=== PATIENT | female | born 1960 | race Caucasian/White ===

== ENCOUNTER 2019-11-13 09:00 | Outpatient (CLI) | payer BC, SELFPAY ==
--- NOTE | ~2019-11-13 | CT_ITS ---
EXAMINATION: CT chest abdomen pelvis w con DATE: 11/13/2019 21:08 CDT INDICATION: Carcinosarcoma of the uterus. TECHNIQUE: Computed tomography (CT) of the chest, abdomen, and pelvis was performed with 100 cc Omnip aque 350 intravenous contrast. The dose-length product was 416.34 mGy-cm. Automated exposure control and iterative reconstruction technique were employed. COMPARISON: Pet/CT dated 02/26/[address] dated 02/26/2019 FINDINGS: CHEST CT: Status post right axillary lymph node dissection. No axillary, mediastinal or hilar lymphadenopathy. Heart size is normal. No significant pleural or pericardial effusion. Stable 4 mm fissural nodule, im age 58. Stable 6 mm right lower lobe nodule, image 89. No endobronchial lesions. Stable calcified lef t thyroid mass without significant change. There are surgical changes of right mastectomy. No new pul monary nodules or masses. ABDOMEN/PELVIS CT: Status post cholecystectomy with pneumobilia. The liver, spleen, pancreas, adrenal glands and kidneys are unremarkable. Normal appendix. Nonobstructive bowel gas pattern. Status post hysterectomy. Small periumbilical fat-containing hernia. No osteolytic or osteoblastic lesions. Central venous catheter near the cavoatrial junction. IMPRESSION: 1. No evidence for metastatic disease. No significant change from most recent pet/CT. Reviewed, dictated and finalized at location A. IMPRESSION: 1. No evidence for metastatic disease. No significant change from most recent p et/CT.
== END 2019-11-13 09:01 | disposition home or self-care (01) ==
PROVIDERS: PCP Family Medicine Adolescent Medicine; Visit Provider Internal Medicine Medical Oncology
DX: C54.9 Malignant neoplasm of corpus uteri, unspecified (principal); T45.1X5A Adverse effect of antineoplastic and immunosuppressive drugs, initial encounter
CPT/HCPCS: 71260; 74177; Q9967

== ENCOUNTER 2022-10-30 07:43 | Outpatient (CLI) | payer OTHER, SELFPAY ==
--- NOTE | ~2022-10-30 | CT_ITS ---
CT of the Abdomen and Pelvis: Indication: Microscopic hematuria Technique: 2.5 mm axial scans were obtained through the abdomen and pelvis prior to and following in travenous administration of 130 cc of Omnipaque 350. Dose reduction technique was used on this scan b y utilizing automated exposure control and iterative reconstruction technique. The dose-length produc t (DLP) was 454.57 mGy-cm. COMPARISON: 11/13/2019 Findings: Scans through the lung bases are unremarkable. The liver, spleen, pancreas, adrenals and right kidney are within normal limits. There is mild left h ydronephrosis and dilatation of the left ureter. No evidence for delayed nephrogram on postcontrast i mages. Minimal pneumobilia present. Probable calcified phlebolith in the left pelvis rather than dist al left ureteral stone. Cholecystectomy clips are present. No evidence of aortic aneurysm. No lympha denopathy. Suspected focal wall thickening at the splenic flexure of the colon. No bowel obstruction. No abscess or free air. Images through the pelvis were performed. Questionable wall thickening of the bladder base, slightly eccentric to the left side. Patient is post hysterectomy. No adnexal mass evident. No ascites. Impression: Mild left hydroureteronephrosis. This is of uncertain etiology. There is questionable mild wall thick ening of the bladder base, and bladder carcinoma or posttreatment change given history of carcinosarc ben of the uterus could be considered. Consider cystoscopy as indicated. Nuclear medicine renal scan could also be considered to evaluate for obstructive uropathy. Wall thickening at the splenic flexure of the colon. Focal infectious/inflammatory colitis suspected . Early neoplasm not completely excluded. Reviewed, dictated and finalized at [facility]. Impression: Mild left hydroureteronephrosis. This is of uncertain etiology. There is questi onable mild wall thickening of the bladder base, and bladder carcinoma or postt reatment change given history of carcinosarcoma of the uterus could be consider ed. Consider cystoscopy as indicated. Nuclear medicine renal scan could also be considered to evaluate for obstructive uropathy. Wall thickening at the splenic flexure of the colon. Focal infectious/inflamma tory colitis suspected. Early neoplasm not completely excluded.
--- NOTE | ~2022-10-30 | XR_ITS ---
Supine and upright views of the abdomen Clinical history: Microscopic hematuria COMPARISON: 06/17/2009 Findings: Bowel gas pattern is nonspecific. No evidence for obstruction or free air. No abnormal mass lesion or calcification is seen. Cholecystectomy clips noted. Osseous structures are intact. Impression: No significant abnormality is seen. Reviewed, dictated and finalized at [facility]. Impression: No significant abnormality is seen.
[2022-10-30 08:22] LABS: Estimated Glomerular Filt Rate > 60
== END 2022-10-30 07:44 | disposition home or self-care (01) ==
PROVIDERS: PCP Family Medicine Adolescent Medicine; Visit Provider Nurse Practitioner Family
DX: R31.29 Other microscopic hematuria (principal); N13.30 Unspecified hydronephrosis; N32.9 Bladder disorder, unspecified; R93.3 Abnormal findings on diagnostic imaging of other parts of digestive tract
CPT/HCPCS: 74018; 74178; Q9967

== ENCOUNTER 2023-02-01 07:32 | Outpatient (CLI) | payer OTHER, SELFPAY ==
--- NOTE | 2023-02-01 01:00 | ECHO_ITS ---
Patient Info Name: Maryam Walsh Age: 62 years : 1960 Gender: Female Ht: 61 in Wt: 129 lbs BSA: 1.60 m2 HR: 79 bpm BP: 138 / 93 mmHg Heart Rhythm: Sinus Rhythm Technical Quality: Good Exam Date: 02/01/2023 7:59 AM Exam Location: [facility] Patient Status: Outpatient Admit Date: 02/01/2023 Staff Ordering Physician: ClaytonReymundo DO Bi Architect: Claudia Patel RDCS Attending Provider: NormanReymundo DO Exam Type: CA echo doppler color flow Study Info Indications - estrogen receptor positive Complete two-dimensional, color flow and Doppler transthoracic echocardiogram is performed. Summary 1. Complete two-dimensional, color flow and Doppler transthoracic echocardiogram is performed. 2. Left ventricular chamber dimension is normal. 3. Left ventricular systolic function is normal, estimated at 55-60%. 4. Global longitudinal strain is normal at 21 %. 5. There is trace mitral valve regurgitation. 6. There is trace tricuspid valve regurgitation. Left Ventricle Left ventricular chamber dimension is normal. Left ventricular systolic function is normal, estimated at 55-60%. The left ventricular diastolic function is normal. Global longitudinal strain is normal at 21 %. Right Ventricle Right ventricular chamber dimension is normal. Left Atria Left atrial chamber dimension is normal. Right Atria Right atrial chamber dimension is normal. Aortic Valve The aortic valve is normal. Pulmonic Valve The pulmonic valve is normal. Mitral Valve The mitral valve has normal leaflets. There is trace mitral valve regurgitation. Tricuspid Valve The tricuspid valve leaflets are normal. There is trace tricuspid valve regurgitation. Pericardium/Pleural The pericardium appears normal. Aorta The aortic root size at the sinus of Valsalva is normal. Left Ventricular Outflow Tract Name Value Normal LVOT 2D LVOT Diameter 2.0 cm LVOT Doppler LVOT Peak Gradient 5 mmHg LVOT Mean Gradient 2 mmHg LVOT VTI 23 cm LVOT VTI/AV VTI Ratio 0.9 LVOT Stroke Volume 71 ml LVOT CO 13.0 l/min LVOT CI 8.2 l/min/m2 Pulmonic Valve Name Value Normal RVOT Doppler RVOT Peak Gradient 3 mmHg PV Doppler PV Peak Gradient 6 mmHg Mitral Valve Name Value Normal MV Doppler MV Decel [place] 945 cm/s2 MV PHT 30 ms MV Are
== END 2023-02-01 07:33 | disposition home or self-care (01) ==
PROVIDERS: PCP Family Medicine Adolescent Medicine; Visit Provider Internal Medicine Medical Oncology
DX: C50.811 Malignant neoplasm of overlapping sites of right female breast (principal); Z17.0 Estrogen receptor positive status [ER+]
CPT/HCPCS: 93306

== ENCOUNTER 2023-02-15 11:52 | Observation (INO) | payer OTHER, BC, SELFPAY ==
[2023-02-06 11:49] VITALS: BMI 24.5
--- NOTE | 2023-02-06 11:56 | PC.NURSE ---
Report to the Outpatient Waiting Room, entrance under the green pavilion located off [facility], at time 0800 on date 02/14/23. Planned Procedure Time: 1000. Time changes happen often and if your time is changed the preop area will call you the afternoon before. - You and your visitor will be asked to self-screen and do not enter if you have any COVID symptoms. - A mask is optional within the hospital at this time. Patients may have clear liquids (water, carbonated beverages, clear teas, apple juice) until 3 hours prior to surgery with a maximum of 20 ounces. - No food from midnight until time of surgery Take the following medications with a SIP of water the morning of surgery: VENLAFAXINE, TYLENOL IF NEEDED DO NOT STOP ANY OF YOUR OTHER PRESCRIPTION MEDICATIONS PRIOR TO SURGERY ?EXCEPT THE FOLLOWING Medications to discontinue per physician: VITAMINS/SUPPLEMENTS Date to take last dose: 02/10/23 Please no make-up, nail frisian, hairspray, perfume, deodorant, or body powder the day of surgery. No jewelry (including any body piercings) or valuables the day of surgery, leave them at home. Please take a shower or bath the night before, or the morning of, surgery with an antibacterial soap. Wear comfortable, loose fitting clothing. - Jewelry must be removed prior to entering the operating room. Rings and piercings that are not removed may be cut off. - The hospital will not accept responsibility for valuables. - Please leave all valuables, including medications, at home the day of surgery. If you are going home after surgery, a licensed sprinkling truck driver must drive you home. - NO public transportation without another adult if you receive anesthesia. - We recommend that an adult stay with you for 24 hours following discharge. - We also recommend that you do not drive, make important decision, drink alcoholic beverages, or take any drugs that were not prescribed by your health care provider for at least 24 hours after your discharge time. Follow any additional instructions given to you from your surgeon. If you or anyone in your household have experienced Covid symptoms in the past week, please notify your surgeon or the nurse liaison at the phone number below for possible testing. Telephone instructions given to PT - LUL SHELTON and asked if any additional questions and then verbalized understanding. Patient advised to call surgeon office or pre surgery nurse liaison [phone] if any additional questions.
--- NOTE | 2023-02-08 11:25 | PM.HPGS ---
History of Present Illness History of Present Illness Consent: Risks, benefits, and alternatives have been discussed and questions answered. Patient agrees to proceed with procedure. Chief complaint: bladder walll thickening, left Narrative: Maryam Walsh is a 62 year old female With known metastatic breast cancer who has now developed retroperitoneal adenopathy and bilateral hydronephrosis. After discussion with patient and her medical oncologist we have elected to proceed with cystoscopy with bilateral retrograde pyelography bilateral ureteral stent placement. Review of Systems Cardiovascular: Cardiovascular: Denies chest pain, Denies lightheadedness, Denies palpitations and Denies dyspnea Respiratory: Respiratory: Denies dyspnea Gastrointestinal: Gastrointestinal: Denies diarrhea, Denies nausea and Denies vomiting Genitourinary: Genitourinary: Denies hematuria and Denies dysuria Endocrine: Endocrine: Denies palpitations PENDING SALE TO [facility] Family History Family History (Updated 02/10/16 @ 23:19 by DOCTOR UNKNOWN) Mother Family history of diabetes mellitus in first degree relative Social History Social History Smoking status: Never smoker Alcohol intake: current Drinks per week: 3 Substance use: never Substance use type: does not use Living arrangements: with family Spiritual care concerns: No Meds Home Medications and Allergies Home Medications Medication Instructions Recorded Confirmed Type acetaminophen 650 mg 650 mg PO Q8H PRN Pain 02/06/23 02/06/23 History tablet,extended release calcium carb-ergocalciferol (vit 1 tablet PO DAILY 02/06/23 02/06/23 History D2) 600 mg calcium-200 unit tablet cyanocobalamin (vitamin B-12) 1,000 mcg PO DAILY 02/06/23 02/06/23 History 1,000 mcg tablet ondansetron HCl 8 mg tablet 8 mg PO Q8H PRN Nausea 02/06/23 02/06/23 History sucralfate 1 gram tablet 1 g PO QID 02/06/23 02/06/23 History venlafaxine 75 mg capsule,extended 75 mg PO DAILY 02/06/23 02/06/23 History release 24 hr Allergies Allergy/AdvReac Type Severity Reaction Status Date / Time Sulfa (Sulfonamide Allergy Unknown Redness of Verified 02/06/23 11:46 Antibiotics) Skin morphine AdvReac Mild Nausea and Verified 02/06/23 11:46 Vomiting Assessment and Plan Assessment and plan (1) Bilateral hydronephrosis: Code(s): N13.30 - Unspecified hydronephrosis Status: Acute Assessment and Plan: Cystoscopy, bilateral retrograde pyelography bilateral ureteral stent placement
--- NOTE | 2023-02-13 13:44 | WPDANESEPPF ---
Anes - Initial Pre Proc Eval Procedure: Operation Date: 02/14/23 10:00 Proposed Procedures p Cystoscopy, Left Retrograde Pyelography, Left Ureteroscopy, Possible Bladder Biopsy - Sandor Colmenares MD Date/Time: 02/13/23 13:44 Surgeon: Sandor Colmenares MD Pre Op Diagnosis: bladder wall thickening, left Patient Data Age: 62 Gender: F Height: 1.55 m Weight: 59 kg Allergies Allergy/AdvReac Type Severity Reaction Status Date / Time Sulfa (Sulfonamide Allergy Unknown Redness of Verified 02/14/23 08:56 Antibiotics) Skin morphine AdvReac Mild Nausea and Verified 02/14/23 08:56 Vomiting Home Medications Medication Instructions Recorded Confirmed Type acetaminophen 650 mg 650 mg PO Q8H PRN Pain 02/06/23 02/06/23 History tablet,extended release calcium carb-ergocalciferol (vit 1 tablet PO DAILY 02/06/23 02/06/23 History D2) 600 mg calcium-200 unit tablet cyanocobalamin (vitamin B-12) 1,000 mcg PO DAILY 02/06/23 02/06/23 History 1,000 mcg tablet ondansetron HCl 8 mg tablet 8 mg PO Q8H PRN Nausea 02/06/23 02/06/23 History sucralfate 1 gram tablet 1 g PO QID 02/06/23 02/06/23 History venlafaxine 75 mg capsule,extended 75 mg PO DAILY 02/06/23 02/14/23 History release 24 hr Patient hx anesthesia problems: none Family hx anesthesia problems: none Results Review: All pre-operative results and documents have been reviewed as part of the pre-operative evaluation. [facility] Past Medical History Medical History (Updated 02/14/23 @ 09:00 by Morro Arteaga DO) Metastasis from breast cancer Surgical History Surgical History (Updated 02/13/23 @ 13:44 by Morro Arteaga DO) History of hysterectomy History of mastectomy Family History Family History (Updated 02/10/16 @ 23:19 by DOCTOR UNKNOWN) Mother Family history of diabetes mellitus in first degree relative Social History Social History Smoking status: Never smoker Alcohol intake: current Drinks per week: 3 Substance use: never Substance use type: does not use Living arrangements: with family Spiritual care concerns: No Anes - Eval Final PreProcedure Day of Procedure 02/13/23 13:44 Patient weight: normal Heart: regular rate and rhythm Lungs: clear to auscultation Airway: Mallampati scale class II Neurological: alert and oriented Last oral intake: >/= 8 hours ASA classification: III Emergent: no Anesthetic plan: proceed Anesthesia type and monitoring: general LMA and standard monitoring Results Review: All pre-operative results and documents have been reviewed as part of the pre-operative evaluation. Informed Consent: The patient's anesthetic plan and its attendant risks and benefits were discussed with the patient/family/POA. Questions were solicited and answers provided to the satisfaction of the patient/family/POA.
[2023-02-14] VITALS (12 sets, daily range): BP systolic 105–134; BP diastolic 69–93; PULSE 77–106; RESP 10–20; TEMP 36.3–37.1; O2SAT 97–100
--- NOTE | 2023-02-14 06:37 | WPDHPUPDATE1 ---
History and Physical Update Update Date/Time: 02/14/23 06:37 History and Physical has been reviewed, including an updated exam of the patient. There are NO changes in the patient's condition. Risks, benefits, and alternatives have been discussed and questions answered. Patient agrees to proceed with procedure.
[2023-02-14] MEDS: LACTATED RINGERS 1,000 ML 30 ML IV CONT (08:30)
--- NOTE | 2023-02-14 11:52 | W.PM.PROC2 ---
Procedure Note - Detailed Date of Procedure 02/14/23 Pre-op Diagnosis Bladder wall thickening, bilateral hydronephrosis Post-op Diagnosis Same Procedure Performed Cystoscopy, attempted bilateral retrograde pyelography, bladder biopsy Surgeon Sandor Colmenares MD Anesthesia General Description of Procedure Patient was brought the op suite she has prepped draped in routine sterile fashion while in dorsal lithotomy position. 2% xylocaine jelly was introduced intraurethrally and general anesthesia administered per the anesthesia department. Cystoscopy is undertaken with 19 in 21 F rigid cystoscope. She has a fixed immobile bladder neck and urethra and an abnormal trigone. Her pelvis is essentially frozen she has a fixed mass in her pelvis. Her trigone is extremely abnormal in appearance. Despite exhaustive attempts with cystoscope and rigid ureteral scope I was unable to identify the ureteral orifices for either retrograde pyelography or wire/stent placement. I did obtain a biopsy this tissue in the trigone midline. The base and periphery were cauterized. Procedure was aborted and a for 20 F urethral catheter was placed to drainage. I will make arrangements for bilateral nephrostomy tube placement Packing No Pathology Yes Complications No immediate complications Condition Stable
--- NOTE | 2023-02-14 11:55 | PM.IMHP ---
H&P: HPI History of Present Illness Date/Time: 02/14/23 11:55 Chief Complaint: Bilateral ureteral obstruction Narrative: Very pleasant 62-year-old female who has known metastatic breast and uterine carcinoma. She has recent developed carcinomatosis and been found to have bilateral hydronephrosis. We were asked to place bilateral ureteral stents. Unfortunately with cystoscopy her trigone and bladder neck were abnormal, precluding identification of the ureters for stent placement. She is being admitted overnight with plans for placement of bilateral percutaneous nephrostomy tubes. Review of Systems Cardiovascular: Cardiovascular: Denies chest pain, Denies lightheadedness, Denies palpitations and Denies dyspnea Respiratory: Respiratory: Denies dyspnea Gastrointestinal: Gastrointestinal: Denies diarrhea, Denies nausea and Denies vomiting Genitourinary: Genitourinary: Denies hematuria and Denies dysuria Endocrine: Endocrine: Denies palpitations [facility] Past Medical History Medical History (Updated 02/14/23 @ 09:00 by Morro Arteaga DO) Metastasis from breast cancer Surgical History Surgical History (Updated 02/13/23 @ 13:44 by Morro Arteaga DO) History of hysterectomy History of mastectomy Family History Family History (Updated 02/10/16 @ 23:19 by DOCTOR UNKNOWN) Mother Family history of diabetes mellitus in first degree relative Social History Social History Smoking status: Never smoker Alcohol intake: current Drinks per week: 3 Substance use: never Substance use type: does not use Living arrangements: with family Spiritual care concerns: No Meds Home Medications and Allergies Home Medications Medication Instructions Recorded Confirmed Type acetaminophen 650 mg 650 mg PO Q8H PRN Pain 02/06/23 02/06/23 History tablet,extended release calcium carb-ergocalciferol (vit 1 tablet PO DAILY 02/06/23 02/06/23 History D2) 600 mg calcium-200 unit tablet cyanocobalamin (vitamin B-12) 1,000 mcg PO DAILY 02/06/23 02/06/23 History 1,000 mcg tablet ondansetron HCl 8 mg tablet 8 mg PO Q8H PRN Nausea 02/06/23 02/06/23 History sucralfate 1 gram tablet 1 g PO QID 02/06/23 02/06/23 History venlafaxine 75 mg capsule,extended 75 mg PO DAILY 02/06/23 02/14/23 History release 24 hr Allergies Allergy/AdvReac Type Severity Reaction Status Date / Time Sulfa (Sulfonamide Allergy Unknown Redness of Verified 02/14/23 08:56 Antibiotics) Skin morphine AdvReac Mild Nausea and Verified 02/14/23 08:56 Vomiting Vital Signs Vital Signs - 24 hr 02/14/23 08:50 02/14/23 11:25 02/14/23 11:41 Temperature 97.5 F L 97.5 F L Pulse Rate 103 H 90 94 Respiratory Rate 20 14 17 Blood Pressure 119/93 H 131/85 134/79 Pulse Oximetry 100 100 100 Oxygen Delivery Room Air Simple Face Mask Simple Face Mask Oxygen Flow Rate 10 10 Exam Const: General: no acute distress Resp: Effort & Inspection: normal respiratory effort GI: Inspection: non-distended GI Palp: No abdominal tenderness and No Guarding due to palpation present (GI) Auscultation: normal bowel sounds Assessment and Plan Assessment and plan (1) Bilateral hydronephrosis: Code(s): N13.30 - Unspecified hydronephrosis Status: Acute Assessment and Plan: Overnight admission with plans for bilateral nephrostomy tube placement tomorrow.
--- NOTE | 2023-02-14 12:55 | PC.NURSE ---
This patient, Maryam Walsh, was admitted to 3 [facility] Surg Room 317-02. Patient/family oriented to hospital policies and general routines including ID bracelet, bed and alarms, visiting hours, pain management, procedures, bathroom and other care routines, personal items, smoking policy, room service/diet, and visiting hours. Information on how to activate the Rapid Response Team has been discussed. Patient/Family are encouraged to report perceived risks to care and to ask questions if they do not understand what they are told or what they should do.
[2023-02-14] MEDS: CEPHALEXIN 500 MG CAPSULE PO ×3 (15:07→21:09)
[2023-02-14 15:09] LABS: Partial Thromboplastin Time 23.2 SECONDS (22.3-36.8); Prothrombin Time 13.7 Seconds (11.1-14.7)
[2023-02-14] MEDS: HYOSCYAMINE SULFATE 0.125 MG TABLET SUBLINGUAL ×2 (16:09→21:15)
[2023-02-14] MEDS: ACETAMINOPHEN 325 MG TABLET 650 MG PO (17:54)
[2023-02-15] VITALS (19 sets, daily range): BP systolic 99–147; BP diastolic 6–92; PULSE 72–113; RESP 13–24; TEMP 36.1–36.9; O2SAT 98–100; BMI 23.6
--- NOTE | ~2023-02-15 | XR_ITS ---
EXAMINATION: XR fluoroscopy no charge DATE: 02/14/2023 11:18 INDICATION: Attempted left retrograde pyelogram TECHNIQUE: A single fluoroscopic image of the lower abdomen and pelvis was obtained during procedure performed by Dr. Colmenares. Radiologist was not present for the imaging or procedure. The amount of fluo roscopy time used during this procedure was 0.1 minutes. COMPARISON: CT dated 10/30/2022 FINDINGS: Images demonstrate cannulation of the bladder and a wire coiled in the bladder. Surgical clips projec t over the right hemipelvis. IMPRESSION: 1. Fluoroscopy utilized during attempted left retrograde pyelogram. See procedure note for further de tail. Reviewed, dictated and finalized at location A. IMPRESSION: 1. Fluoroscopy utilized during attempted left retrograde pyelogram. See procedu re note for further detail.
--- NOTE | ~2023-02-15 | CT_ITS ---
EXAMINATION: CT guided nephrostomy tube , CT guided nephrostomy tube DATE: 02/15/2023 14:46 INDICATION: Metastatic disease with bilateral distal ureteral obstruction resulting bilateral hydrone phrosis. TECHNIQUE: The procedure including the risks and benefits was discussed with the patient. Risks discu ssed included bleeding and infection. The patient understood the risks and benefits and agreed to pro ceed. The patient was confirmed to be receiving appropriate antibiotic coverage. The skin overlying t he posterior aspect of both kidneys was prepped and draped in usual sterile fashion. Anesthetic was administered with 1% lidocaine subcutaneously. 18 gauge trochar needles were inserted into the lower pole calyces of both the left and right kidneys under CT guidance. Utilizing Seldinger technique the needle set both kidneys were exchanged over a wire for 6 Korean and 8 Korean dilators and then for a n 8.5 Korean pigtail catheter under CT guidance. The left sided catheter was able to be advanced into the left ureter where it was left without deforming the distal loop. The tip of the right-sided cath eter was coiled in the right renal pelvis where the loop was formed and locked. After confirmation of positioning, both catheters were stitched to the skin. Antibiotic ointment and sterile dressing were applied. Small amount of fluid was aspirated from both nephrostomy tubes and sent to the lab for Gra m stain and cultures. The catheters were then attached to gravity drainage and were both draining add itional pinkish urine at the conclusion of the procedure. The mAs was manually reduced and needle adv ancement was performed simultaneously at both kidneys in order to limit radiation exposure. The dose- length product was 687.36 mGy-cm. There were no immediate complications. FINDINGS: CT images demonstrate the left nephrostomy tube extending into the proximal left ureter and the right nephrostomy tube with distal loop in the right renal pelvis. IMPRESSION: 1. Successful CT-guided left nephrostomy tube placement. 2. Successful CT-guided right nephrostomy tube placement Reviewed, dictated and finalized at location A. IMPRESSION: 1. Successful CT-guided left nephrostomy tube placement. 2. Successful CT-guided right nephrostomy tube placement
--- NOTE | 2023-02-15 06:55 | WPDUROPN2 ---
Progress Note: A&P Assessment and Plan (1) Bilateral hydronephrosis: Code(s): N13.30 - Unspecified hydronephrosis Status: Acute Assessment and Plan: Bilateral nephrostomy placement today. Subjective Subjective Date/Time Seen: 02/15/23 06:55 Interval history: Comfortable, resting Review of Systems Review of Systems: All systems reviewed & are unremarkable except as noted in HPI and below Exam Const: General: no acute distress Resp: Effort & Inspection: normal respiratory effort GI: Inspection: non-distended GI Palp: No abdominal tenderness and No Guarding due to palpation present (GI) Auscultation: normal bowel sounds Objective Data Vital Signs Vital Signs: Vital Signs - 24 hr 02/14/23 08:50 02/14/23 11:25 02/14/23 11:41 Temperature 97.5 F L 97.5 F L Pulse Rate 103 H 90 94 Respiratory Rate 20 14 17 Blood Pressure 119/93 H 131/85 134/79 Pulse Oximetry 100 100 100 Oxygen Delivery Room Air Simple Face Mask Simple Face Mask Oxygen Flow Rate 10 10 02/14/23 11:55 02/14/23 12:10 02/14/23 12:25 Temperature Pulse Rate 89 91 86 Respiratory Rate 10 L 15 20 Blood Pressure 129/78 130/75 128/84 Pulse Oximetry 97 100 100 Oxygen Delivery Room Air Room Air Room Air Oxygen Flow Rate 02/14/23 12:55 02/14/23 13:10 02/14/23 13:40 Temperature 97.6 F 97.6 F 97.7 F Pulse Rate 77 80 106 H Respiratory Rate 17 16 17 Blood Pressure 119/69 125/78 124/81 Pulse Oximetry 100 100 100 Oxygen Delivery Oxygen Flow Rate 02/14/23 14:47 02/14/23 12:55 02/14/23 18:29 Temperature 97.4 F L 98.8 F Pulse Rate 101 H 93 Respiratory Rate 17 16 Blood Pressure 123/86 105/75 Pulse Oximetry 98 100 Oxygen Delivery Room Air Oxygen Flow Rate 02/14/23 22:16 02/15/23 02:29 02/15/23 05:45 Temperature 97.6 F 96.9 F L 98.4 F Pulse Rate 99 96 72 Respiratory Rate 14 13 13 Blood Pressure 131/80 106/67 113/66 Pulse Oximetry 98 99 100 Oxygen Delivery Oxygen Flow Rate Intake/Output Intake/Output: Intake & Output 02/12/23 02/13/23 02/14/23 02/15/23 23:59 23:59 23:59 23:59 Intake Total 840 240 Output Total 350 1000 Balance 490 -760 Meds/Results Medications: Active Medications Generic Name Dose Route Start Last Admin Trade Name Freq PRN Reason Stop Dose Admin Acetaminophen 650 mg 02/14/23 12:44 02/14/23 17:54 Acetaminophen 325 Mg Tablet PO 650 mg Q8H PRN Administration Pain Hydrocodone Bitart/Acetaminophen 1 tab 02/14/23 12:44 Hydrocodone/Acetaminophen (*Crx) 5-325 Mg Tablet PO Q4H PRN Pain Rated 1-6 Cephalexin HCl 500 mg 02/14/23 14:00 02/14/23 21:09 Cephalexin 500 Mg Capsule PO 500 mg QID [place] Administration Fentanyl Citrate 25 mcg 02/13/23 13:45 Fentanyl Citrate Inj (*Crx) 100 Mcg/2 Ml Vial IV PUSH Q2M PRN Pain Hyoscyamine 0.125 mg 02/14/23 12:44 02/14/23 21:15 Hyoscyamine Sulfate 0.125 Mg Tablet SUBLINGUAL 0.125 mg Q6H PRN Administration Bladder Spasm Morphine Sulfate 2 mg 02/14/23 12:44 Morphine Sulfate (*Crx) 2 Mg/Ml Inj IV PUSH Q2H PRN Pain Rated 7-10 Naloxone HCl 0.1 mg 02/14/23 12:44 Naloxone Hcl 0.4 Mg/Ml Vial IV PUSH Q2M PRN Opiate Reversal Non-Formulary Medication 8 mg 02/14/23 12:44 Ondansetron Hcl PO Q8H PRN Nausea Ondansetron HCl 4 mg 02/13/23 13:45 Ondansetron Inj 4 Mg/2 Ml Vial IV PUSH ONCE PRN Nausea Ondansetron HCl 4 mg 02/14/23 12:44 Ondansetron Inj 4 Mg/2 Ml Vial IV PUSH Q12H PRN Nausea And Vomiting Oxycodone HCl 5 mg 02/13/23 13:45 Oxycodone Hcl (*Crx) 5 Mg Tab Ir PO ONCE PRN Pain Venlafaxine HCl 75 mg 02/15/23 09:00 Venlafaxine Hcl Xr 75 Mg Cap.Er.24h PO DAILY [facility] Radiology Results: ITS Impressions Fluoroscopy 02/14/23 11:54 IMPRESSION: 1. Fluoroscopy utilized during attempted left retrograde pyelogram. See procedure note for fu
[2023-02-15] MEDS: VENLAFAXINE HCL XR 75 MG CAP.ER.24H PO (08:11)
[2023-02-15] MEDS: CEPHALEXIN 500 MG CAPSULE PO ×3 (08:11→17:02)
[2023-02-15] MEDS: ONDANSETRON INJ 4 MG/2 ML VIAL IV PUSH (08:11)
[2023-02-15 09:24] LABS: Hemoglobin 8.7 g/dL (12.0-15.0); Mean Corpuscular HGB Conc 33.5 g/dl (32-36); Mean Corpuscular Hemoglobin 32.3 pg (26-34); Mean Corpuscular Volume 96.7 fl (80-100); Mean Platelet Volume 10.4 fl (7.4-10.4); Platelet Count Result 284 k/mm3 (150-375); Red Blood Count 2.69 M/mm3 (4.2-5.4); Red Cell Distribution Width 14.1 % (11.5-14.5); White Blood Count 7.8 K/mm3 (4.5-10.0)
[2023-02-15 09:39] LABS: Anion Gap 6 mmol/L (8-16); Blood Urea Nitrogen 21 mg/dL (7-17); Calcium 8.6 mg/dL (8.4-10.2); Carbon Dioxide 27 mmol/L (22-30); Chloride 104 mmol/L (98-107); Estimated CRCL calculation 30 ml/min; Estimated Glomerular Filt Rate 42; Glucose 97 mg/dL (65-110); Potassium 3.2 mmol/L (3.4-5.0); Sodium 137 mmol/L (137-145)
[2023-02-15] MEDS: oxyCODONE HCL (*CRX) 5 MG TAB IR PO (10:13)
--- NOTE | 2023-02-15 11:19 | WPDMODSED ---
Moderate Sedation Note-Pt Data Patient Data Diagnosis: metastatic breast cancer with bilateral ureteral obstruction Present Complaint: hydronephrosis Procedure to be performed/Plan: bilateral percutaneous nephrostomy tube placement. Allergies Allergy/AdvReac Type Severity Reaction Status Date / Time Sulfa (Sulfonamide Allergy Unknown Redness of Verified 02/14/23 08:56 Antibiotics) Skin morphine AdvReac Mild Nausea and Verified 02/14/23 08:56 Vomiting Home Medications Medication Instructions Recorded Confirmed Type acetaminophen 650 mg 650 mg PO Q8H PRN Pain 02/06/23 02/06/23 History tablet,extended release calcium carb-ergocalciferol (vit 1 tablet PO DAILY 02/06/23 02/06/23 History D2) 600 mg calcium-200 unit tablet cyanocobalamin (vitamin B-12) 1,000 mcg PO DAILY 02/06/23 02/06/23 History 1,000 mcg tablet ondansetron HCl 8 mg tablet 8 mg PO Q8H PRN Nausea 02/06/23 02/06/23 History sucralfate 1 gram tablet 1 g PO QID 02/06/23 02/06/23 History venlafaxine 75 mg capsule,extended 75 mg PO DAILY 02/06/23 02/14/23 History release 24 hr Current Medications: Active Medications Acetaminophen (Acetaminophen 325 Mg Tablet) 650 mg PO Q8H PRN PRN Reason: Pain Last Admin: 02/14/23 17:54 Dose: 650 mg Hydrocodone Bitart/Acetaminophen (Hydrocodone/Acetaminophen (*Crx) 5-325 Mg Tablet) 1 tab PO Q4H PRN PRN Reason: Pain Rated 1-6 Cephalexin HCl (Cephalexin 500 Mg Capsule) 500 mg PO QID [place] Last Admin: 02/15/23 08:11 Dose: 500 mg Fentanyl Citrate (Fentanyl Citrate Inj (*Crx) 100 Mcg/2 Ml Vial) 25 mcg IV PUSH Q2M PRN PRN Reason: Pain Hyoscyamine (Hyoscyamine Sulfate 0.125 Mg Tablet) 0.125 mg SUBLINGUAL Q6H PRN PRN Reason: Bladder Spasm Last Admin: 02/14/23 21:15 Dose: 0.125 mg Morphine Sulfate (Morphine Sulfate (*Crx) 2 Mg/Ml Inj) 2 mg IV PUSH Q2H PRN PRN Reason: Pain Rated 7-10 Naloxone HCl (Naloxone Hcl 0.4 Mg/Ml Vial) 0.1 mg IV PUSH Q2M PRN PRN Reason: Opiate Reversal Ondansetron HCl (Ondansetron Inj 4 Mg/2 Ml Vial) 4 mg IV PUSH Q12H PRN PRN Reason: Nausea And Vomiting Last Admin: 02/15/23 08:11 Dose: 4 mg Oxycodone HCl (Oxycodone Hcl (*Crx) 5 Mg Tab Ir) 5 mg PO ONCE PRN PRN Reason: Pain Last Admin: 02/15/23 10:13 Dose: 5 mg Venlafaxine HCl (Venlafaxine Hcl Xr 75 Mg Cap.Er.24h) 75 mg PO DAILY [place] Last Admin: 02/15/23 08:11 Dose: 75 mg Sedation/Anesthesia: No previous sedation/anesthesia problems (including family history). [facility] Past Medical History Medical History (Updated 02/14/23 @ 09:00 by Morro Arteaga DO) Metastasis from breast cancer Surgical History Surgical History (Updated 02/13/23 @ 13:44 by Morro Arteaga DO) History of hysterectomy History of mastectomy Family History Family History (Updated 02/10/16 @ 23:19 by DOCTOR UNKNOWN) Mother Family history of diabetes mellitus in first degree relative Social History Social History Smoking status: Never smoker Alcohol intake: current Drinks per week: 4 Substance use: never Substance use type: does not use Lack of Transportation: No Lack of Food: Never True Current Housing: I Have Housing Concerned About Future Housing: No Difficulty Paying Gas/Electric Bills: No Difficulty Paying for Meds: No Currently Unemployed: No Education: Master's Degree or Higher Difficulty w/ Childcare or Family Care: No Living arrangements: with family Spiritual care concerns: No Mod Sed Physical Exam Physical Exam Pre Procedural Exam: Normal: Appearance, Neck, Throat, Lungs, Heart Rate, Heart Rhythm and Abdomen Hours since solid foods: 12 Hours since liquid intake: 12 Mallampati Classification: class II Internal Medicine - PN: Obj Da Vital Signs Vital Signs: Vital Signs - 24 hr 02/14/23 11:25 02/14/23 11:41 02/14/23 11:55 Temperature 97.5 F L Pulse Rate 90 94 89 Respiratory Rate 14 17 10 L Blood Pressure 131/85 134/79 129/78 Pu
[2023-02-15] MEDS: ACETAMINOPHEN 325 MG TABLET 650 MG PO (15:22)
[2023-02-15] MEDS: ONDANSETRON HCL ODT 4 MG TABLET PO (17:44)
--- NOTE | 2023-02-15 18:18 | PM.DS ---
DS: Admitting Diagnosis Discharge Date 02/15/23 Admitting Diagnosis Bilateral hydronephrosis DS: Discharge Diagnosis Discharge Diagnosis (1) Bilateral hydronephrosis: Code(s): N13.30 - Unspecified hydronephrosis Status: Acute DS: Summary Hospital Course Hospital Course: Very pleasant woman who has progressive metastatic breast and uterine cancer. 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 We made a attempt at placement ureteral stone stents bilaterally without success. She was kept overnight and the following morning had bilateral nephrostomy tubes changed. That afternoon she was comfortable and tolerating a diet. She will be discharged and plans for outpatient antegrade stent placement attempt will be made. Time Spent with Patient Time attestation: Total time spent providing and/or coordinating discharge services: Exam Const: General: no acute distress Resp: Effort & Inspection: normal respiratory effort GI: Inspection: non-distended GI Palp: No abdominal tenderness and No Guarding due to palpation present (GI) Auscultation: normal bowel sounds DS: Data Data Completed and Pending Pending studies at discharge: Pending at discharge 02/14/23 11:12 Surgical [PTH] Routine Labs on day of discharge: Labs from last 24 hours 02/15/23 09:15 WBC 7.8 RBC 2.69 L Hgb 8.7 L Hct 26.0 L MCV 96.7 MCH 32.3 MCHC 33.5 RDW 14.1 Plt Count 284 MPV 10.4 Sodium 137 Potassium 3.2 L Chloride 104 Carbon Dioxide 27 Anion Gap 6 L BUN 21 H Creatinine 1.30 H Estim Creat Clear Calc 30 Estimated GFR 42 L Glucose 97 Calcium 8.6 Discharge Plan Discharge Attending physician on discharge: Sandor Colmenares Discharging Clinician: Sandor Colmenares Patient Disposition: Home, Self-Care Activity: may shower Diet: as tolerated Discharge Instructions: 1) Activity: no driving or important decisions x24 hours. 2) Diet: resume your normal, pre-admission diet. 3) Follow-up: my office will contact Saturday to arrange follow-up. 4) OK to shower 5) Nephrostomy tube to drainage bilat. (leg bag) Patient Instructions: Antibiotic Form Stand Alone Forms: General Discharge Information Follow-up/Referrals: Sandor Colmenares MD [Physician] - Call for Appointment Discharge Medications: New hydrocodone-acetaminophen 5-325 mg tablet 1 - 2 tablet PO Q6H PRN (Reason: pain) Qty: 20 0RF cephalexin 500 mg capsule 500 mg PO Q8H Qty: 9 0RF Continued venlafaxine 75 mg capsule,extended release 24hr 75 mg PO DAILY ondansetron HCl 8 mg Tablet 8 mg PO Q8H PRN (Reason: Nausea) sucralfate 1 gram tablet 1 g PO QID acetaminophen 650 mg Tablet Extended Release 650 mg PO Q8H PRN (Reason: Pain) calcium carbonate-vitamin D2 600 mg calcium- 200 unit Tablet 1 tablet PO DAILY cyanocobalamin (vitamin B-12) 1,000 mcg Tablet 1,000 mcg PO DAILY Date of admission: 02/15/23 11:52 Primary Care Provider: Macho Moody Admitting Provider: Sandor Colmenares Attending physician on admission: Sandor Colmenares Condition: Stable
== END 2023-02-15 17:55 | disposition home or self-care (01) ==
LOC: ANHSURGERY 11:57 → ANH3MEDSUR 11:57
PROVIDERS: Radiology Diagnostic Radiology; Admitting Provider Urology; PCP Family Medicine Adolescent Medicine; Visit Provider Urology
PROC: (CPT 52352; principal; 2023-02-14 10:00)
DX: N13.30 Unspecified hydronephrosis (principal); C79.81 Secondary malignant neoplasm of breast; C79.11 Secondary malignant neoplasm of bladder; C79.82 Secondary malignant neoplasm of genital organs; N32.89 Other specified disorders of bladder; R59.9 Enlarged lymph nodes, unspecified; F10.90 Alcohol use, unspecified, uncomplicated; Z79.1 Long term (current) use of non-steroidal anti-inflammatories (NSAID); Z79.899 Other long term (current) drug therapy; Z90.710 Acquired absence of both cervix and uterus; Z90.10 Acquired absence of unspecified breast and nipple
CPT/HCPCS: 52204; 36415; 50435; 80048; 85027; 85610; 85730; 87070; 87075; 87205; 88108; 88305; 88342; 99199; A9270; C1729; C1758; C1769; G0378; J1100; J2250; J2405; J2704; J3010; J7040; J7120; Q9966

== ENCOUNTER 2023-04-04 00:37 | Day surgery (SDC) | payer OTHER, BC, SELFPAY ==
[2023-04-03 17:35] VITALS: BMI 24.4
--- NOTE | 2023-04-03 17:59 | PC.NURSE ---
Report to the Outpatient Waiting Room, entrance under the green pavilion located off [facility], at 0915 on 04-04-23. Planned Procedure Time: 1115. Time changes happen often and if your time is changed the preop area will call you the afternoon before. - You and your visitor will be asked to self-screen and do not enter if you have any COVID symptoms. - A mask is optional within the hospital at this time. Patients may have clear liquids (water, carbonated beverages, clear teas, apple juice) until 3 hours prior to surgery with a maximum of 20 ounces. 0815 - No food from midnight until time of surgery - Infants may have breast milk until 4 hours before surgery, formula 6 hours prior to surgery. - Children will be allowed to drink immediately following surgery. If applicable, please bring a bottle or sippy cup to assist with drinking. Juice, water, soda, and popsicles are readily available. For infants on formula, please bring formula the day of surgery. Pacifiers are allowed. Take the following medications with a SIP of water the morning of surgery: None DO NOT STOP ANY OF YOUR OTHER PRESCRIPTION MEDICATIONS PRIOR TO SURGERY ?EXCEPT THE FOLLOWING Medications to discontinue per physician: N/A Please no make-up, nail macedonian, hairspray, perfume, deodorant, or body powder the day of surgery. No jewelry (including any body piercings) or valuables the day of surgery, leave them at home. Please take a shower or bath the night before, or the morning of, surgery with an antibacterial soap. Wear comfortable, loose fitting clothing. Children are encouraged to wear pajamas. - Jewelry must be removed prior to entering the operating room. Rings and piercings that are not removed may be cut off. - The hospital will not accept responsibility for valuables. - Please leave all valuables, including medications, at home the day of surgery. If you are going home after surgery, a licensed driver courier must drive you home. - NO public transportation without another adult if you receive anesthesia. - We recommend that an adult stay with you for 24 hours following discharge. - We also recommend that you do not drive, make important decision, drink alcoholic beverages, or take any drugs that were not prescribed by your health care provider for at least 24 hours after your discharge time. For Pediatric surgeries, we recommend two adults accompany the child home. Follow any additional instructions given to you from your surgeon. If you or anyone in your household have experienced Covid symptoms in the past week, please notify your surgeon or the nurse liaison at the phone number below for possible testing. Telephone instructions given to Maryam Walsh and asked if any additional questions and then verbalized understanding. Patient advised to call surgeon office or pre surgery nurse liaison [phone] if any additional questions.
--- NOTE | ~2023-04-04 | XR_ITS ---
XR retrograde pyelo w/stent BI DATE: 04/04/2023 11:23 INDICATION: Bilateral stent placement TECHNIQUE: 263.3 seconds fluoroscopy time 32.86 mGy COMPARISON: None FINDINGS: Bilateral internal urinary stents are placed, the proximal pigtails overlying the renal pel ves, distal pigtail overlying the respective side of the urinary bladder. IMPRESSION: Bilateral internal urinary stent placements Reviewed, dictated and finalized at Location A. Reviewed, dictated and finalized at location A.
--- NOTE | 2023-04-04 07:19 | WPDHPUPDATE1 ---
History and Physical Update Update Date/Time: 04/04/23 07:19 History and Physical has been reviewed, including an updated exam of the patient. There are NO changes in the patient's condition. Risks, benefits, and alternatives have been discussed and questions answered. Patient agrees to proceed with procedure.
[2023-04-04 09:49] VITALS: BP 108/75; PULSE 109; RESP 18; TEMP 37.1; O2SAT 100
--- NOTE | 2023-04-04 09:50 | WPDANESEPPF ---
Anes - Initial Pre Proc Eval Procedure: Operation Date: 04/04/23 10:15 Proposed Procedures p Cystoscopy, Bilateral Stent Placement - Sandor Colmenares MD Date/Time: 04/04/23 09:50 Surgeon: Sandro Colmenares MD Pre Op Diagnosis: bilateral hydronephrosis Patient Data Age: 62 Gender: F Height: 1.52 m Weight: 56.7 kg Allergies Allergy/AdvReac Type Severity Reaction Status Date / Time Sulfa (Sulfonamide Allergy Unknown Redness of Verified 04/04/23 09:46 Antibiotics) Skin morphine AdvReac Mild Nausea and Verified 04/04/23 09:46 Vomiting Home Medications Medication Instructions Recorded Confirmed Type calcium carb-ergocalciferol (vit 1 tablet PO DAILY 02/06/23 04/03/23 History D2) 600 mg calcium-200 unit tablet ondansetron HCl 8 mg tablet 8 mg PO Q8H PRN Nausea 02/06/23 04/03/23 History venlafaxine 75 mg capsule,extended 75 mg PO DAILY 02/06/23 04/03/23 History release 24 hr acetaminophen 325 mg tablet 650 mg PO Q4H PRN Pain (Scale 04/03/23 04/03/23 History (Tylenol) Score 1-3) prochlorperazine maleate 10 mg 10 mg PO Q4H PRN nausea 04/03/23 04/03/23 History tablet solifenacin 5 mg tablet 5 mg PO DAILY 04/03/23 04/03/23 History Patient hx anesthesia problems: none Family hx anesthesia problems: none Results Review: All pre-operative results and documents have been reviewed as part of the pre-operative evaluation. [facility] Past Medical History Medical History (Updated 02/14/23 @ 09:00 by Morro Arteaga DO) Metastasis from breast cancer Surgical History Surgical History (Updated 02/13/23 @ 13:44 by Morro Arteaga DO) History of hysterectomy History of mastectomy Family History Family History (Updated 02/10/16 @ 23:19 by DOCTOR UNKNOWN) Mother Family history of diabetes mellitus in first degree relative Social History Social History Smoking status: Never smoker Second hand tobacco smoke exposure: No Alcohol intake: current Drinks per week: 2 Alcohol use details: red wine a glass or two on the weekends Substance use: current Substance use type: marijuana Other substance usage details: chemarebecca Lack of Transportation: No Lack of Food: Never True Current Housing: I Have Housing Concerned About Future Housing: No Difficulty Paying Gas/Electric Bills: No Difficulty Paying for Meds: No Currently Unemployed: No Education: Master's Degree or Higher Difficulty w/ Childcare or Family Care: No Living arrangements: with family Spiritual care concerns: No Anes - Eval Final PreProcedure Day of Procedure 04/04/23 09:50 Patient weight: normal Heart: regular rate and rhythm Lungs: clear to auscultation Airway: Mallampati scale class II Neurological: alert and oriented Last oral intake: >/= 8 hours ASA classification: III Emergent: no Anesthetic plan: proceed Anesthesia type and monitoring: general LMA and standard monitoring Results Review: All pre-operative results and documents have been reviewed as part of the pre-operative evaluation. Informed Consent: The patient's anesthetic plan and its attendant risks and benefits were discussed with the patient/family/POA. Questions were solicited and answers provided to the satisfaction of the patient/family/POA.
[2023-04-04] MEDS: ceFAZolin 2 GM/D5W 50 ML 2 GM/50 ML BAG IVPB (10:39)
[2023-04-04 11:20] VITALS: BP 123/79; PULSE 87; RESP 14; TEMP 37.4; O2SAT 100
[2023-04-04] MEDS: LACTATED RINGERS 1,000 ML 30 ML IV CONT (11:20)
--- NOTE | 2023-04-04 11:20 | W.PM.PROC2 ---
Procedure Note - Detailed Date of Procedure 04/04/23 Pre-op Diagnosis Bilateral hydronephrosis Post-op Diagnosis Same Procedure Performed Cystoscopy, bilateral retrograde pyelography, bilateral ureteral stent internalization Surgeon Sandor Colmenares MD Anesthesia General Description of Procedure patient is brought to the operative suite where she has prepped draped in routine sterile fashion while in dorsal lithotomy position after the uneventful induction of a general anesthetic. Cystoscopy is undertaken with a 21 F rigid cystoscope. Bladder is noticeably better today with less gross neoplastic changes in the bladder neck and trigone. In a very similar fashion bilaterally I grasped the bladder coil of her indwelling nephro stents. A 0.035 in glidewire was advanced into the proximal ureter. I then removed each nephro stent through the flank skin incision. Retrograde pyelography was obtained over angiographic catheters to outline the renal pelvis and place bilateral 6 F variable length ureteral stents with proximal coils in the renal pelvis and distal coils in the bladder. Dressings were replaced over her nephrostomy tube sites. She tolerated this procedure quite nicely. I will plan to change the stents in 6 weeks. Drains Yes Packing No Pathology None sent Complications No immediate complications Condition Stable Disposition PACU
[2023-04-04 11:35] VITALS: BP 108/90; PULSE 99; RESP 16; O2SAT 100
[2023-04-04 11:50] VITALS: BP 128/87; PULSE 91; RESP 14; O2SAT 99
[2023-04-04 11:56] VITALS: BP 108/69; PULSE 88; RESP 15
[2023-04-04 12:23] VITALS: BP 141/82; PULSE 93; RESP 16
== END 2023-04-04 12:48 | disposition home or self-care (01) ==
PROVIDERS: PCP Family Medicine Adolescent Medicine; Visit Provider Urology
PROC: (CPT 52352; principal; 2023-04-04 10:15)
DX: N13.30 Unspecified hydronephrosis (principal); C78.6 Secondary malignant neoplasm of retroperitoneum and peritoneum; N39.3 Stress incontinence (female) (male); N32.89 Other specified disorders of bladder; R31.29 Other microscopic hematuria; F12.90 Cannabis use, unspecified, uncomplicated; Z85.3 Personal history of malignant neoplasm of breast
CPT/HCPCS: 52332; 74420; C1758; C1769; C2617; J0690; J1100; J2250; J2405; J2704; J3010; J7120; Q9966

== ENCOUNTER 2023-06-13 01:55 | Day surgery (SDC) | payer OTHER, SELFPAY ==
[2023-06-04 11:37] VITALS: BMI 24.5
--- NOTE | 2023-06-04 11:50 | PC.NURSE ---
Report to the Outpatient Waiting Room, entrance under the green pavilion located off [facility], at time 1230 on date 06/13/23. Planned Procedure Time: 1430. Time changes happen often and if your time is changed the preop area will call you the afternoon before. - You and your visitor will be asked to self-screen and do not enter if you have any COVID symptoms. - A mask is optional within the hospital at this time. Patients may have clear liquids (water, carbonated beverages, clear teas, apple juice) until 3 hours prior to surgery with a maximum of 20 ounces. - No food from midnight until time of surgery Take the following medications with a SIP of water the morning of surgery: CARVEDILOL, VENLAFAXINE, TYLENOL IF NEEDED DO NOT STOP ANY OF YOUR OTHER PRESCRIPTION MEDICATIONS PRIOR TO SURGERY ?EXCEPT THE FOLLOWING Medications to discontinue per physician: VITAMINS Date to take last dose: 06/09/23 Please no make-up, nail indonesian, hairspray, perfume, deodorant, or body powder the day of surgery. No jewelry (including any body piercings) or valuables the day of surgery, leave them at home. Please take a shower or bath the night before, or the morning of, surgery with an antibacterial soap. Wear comfortable, loose fitting clothing. - Jewelry must be removed prior to entering the operating room. Rings and piercings that are not removed may be cut off. - The hospital will not accept responsibility for valuables. - Please leave all valuables, including medications, at home the day of surgery. If you are going home after surgery, a licensed after school driver must drive you home. - NO public transportation without another adult if you receive anesthesia. - We recommend that an adult stay with you for 24 hours following discharge. - We also recommend that you do not drive, make important decision, drink alcoholic beverages, or take any drugs that were not prescribed by your health care provider for at least 24 hours after your discharge time. Follow any additional instructions given to you from your surgeon. If you or anyone in your household have experienced Covid symptoms in the past week, please notify your surgeon or the nurse liaison at the phone number below for possible testing. Telephone instructions given to PT - LUL SHELTON and asked if any additional questions and then verbalized understanding. Patient advised to call surgeon office or pre surgery nurse liaison [phone] if any additional questions.
--- NOTE | 2023-06-12 07:19 | P.HP_ITS ---
History of Present Illness History of Present Illness Consent: Risks, benefits, and alternatives have been discussed and questions answered. Patient agrees to proceed with procedure. Chief complaint: Wale Hydronephrosis Narrative: Maryam Walsh is a 63 year old female Has no new have a pelvic physician gynecologist malignancy that is caused bilateral ureteral obstruction. Proximally 2 months ago she underwent attempted retrograde stent placement without success. Later, antegrade nephro stent placement was successful. She now presents for ureteral stent exchange. Review of Systems Review of Systems: All systems reviewed & are unremarkable except as noted in HPI and below PMFSH Past Medical History Medical History (Updated 02/14/23 @ 09:00 by Morro Arteaga DO) Metastasis from breast cancer Surgical History Surgical History (Updated 02/13/23 @ 13:44 by Morro Arteaga DO) History of hysterectomy History of mastectomy Family History Family History (Updated 02/10/16 @ 23:19 by DOCTOR UNKNOWN) Mother Family history of diabetes mellitus in first degree relative Social History Social History Smoking status: Never smoker Second hand tobacco smoke exposure: No Alcohol intake: current Drinks per week: 2 Alcohol use details: WINE ON WEEKENDS Substance use: current Substance use type: marijuana Other substance usage details: GUMMY DURING CHEMO Lack of Transportation: No Lack of Food: Never True Current Housing: I Have Housing Concerned About Future Housing: No Difficulty Paying Gas/Electric Bills: No Difficulty Paying for Meds: No Currently Unemployed: No Education: Master's Degree or Higher Difficulty w/ Childcare or Family Care: No Living arrangements: with family Spiritual care concerns: No Meds Home Medications and Allergies Home Medications Medication Instructions Recorded Confirmed Type calcium carb-ergocalciferol (vit 1 tablet PO DAILY 02/06/23 06/04/23 History D2) 600 mg calcium-200 unit tablet ondansetron HCl 8 mg tablet 8 mg PO Q8H PRN Nausea 02/06/23 06/04/23 History venlafaxine 75 mg capsule,extended 75 mg PO DAILY 02/06/23 06/04/23 History release 24 hr acetaminophen 325 mg tablet 650 mg PO Q4H PRN Pain (Scale 04/03/23 06/04/23 History (Tylenol) Score 1-3) prochlorperazine maleate 10 mg 10 mg PO Q4H PRN nausea 04/03/23 06/04/23 History tablet carvedilol 3.125 mg tablet 3.125 mg PO BID 06/04/23 06/04/23 History Allergies Allergy/AdvReac Type Severity Reaction Status Date / Time Sulfa (Sulfonamide Allergy Unknown Redness of Verified 06/04/23 11:35 Antibiotics) Skin morphine AdvReac Mild Nausea and Verified 06/04/23 11:35 Vomiting Assessment and Plan Assessment and plan (1) Bilateral hydronephrosis: Code(s): N13.30 - Unspecified hydronephrosis Status: Acute Assessment and Plan: * Cystoscopy with bilateral ureteral stent exchange
[2023-06-13] VITALS (8 sets, daily range): BP systolic 101–130; BP diastolic 58–78; PULSE 64–81; RESP 10–20; TEMP 36.7; O2SAT 99–100; BMI 24.2
--- NOTE | ~2023-06-13 | XR_ITS ---
EXAMINATION: XR stent kub - surgery DATE: 06/13/2023 12:31 INDICATION: Bilateral internal ureteral stent exchange TECHNIQUE: Fluoroscopic images from a bilateral stent exchange are submitted for review. 163 seconds of fluoroscopy time. 4 fluoroscopic images FINDINGS: There are bilateral double-J internal ureteral stent projecting in expected position, with proximal C ope loop at the level of the renal pelvis and distal loop in the pelvis within the bladder lumen. IMPRESSION: 1. Status post bilateral internal ureteral stent exchange. Please refer to real-time procedural fin dings for details. Reviewed, dictated and finalized at location L. [employer] IMPRESSION: 1. Status post bilateral internal ureteral stent exchange. Please refer to re al-time procedural findings for details.
--- NOTE | 2023-06-13 06:31 | WPDHPUPDATE1 ---
History and Physical Update Update Date/Time: 06/13/23 06:31 History and Physical has been reviewed, including an updated exam of the patient. There are NO changes in the patient's condition. Risks, benefits, and alternatives have been discussed and questions answered. Patient agrees to proceed with procedure.
--- NOTE | 2023-06-13 11:08 | WPDANESEPPF ---
Anes - Initial Pre Proc Eval Procedure: Operation Date: 06/13/23 12:30 Proposed Procedures p Cystoscopy with Bilateral Stent Exchange - Sandor Colmenares MD Date/Time: 06/13/23 11:08 Surgeon: Sandor Colmenares MD Pre Op Diagnosis: Wale Hydronephrosis Patient Data Age: 63 Gender: F Height: 1.55 m Weight: 59 kg Allergies Allergy/AdvReac Type Severity Reaction Status Date / Time Sulfa (Sulfonamide Allergy Unknown Redness of Verified 06/04/23 11:35 Antibiotics) Skin morphine AdvReac Mild Nausea and Verified 06/04/23 11:35 Vomiting Home Medications Medication Instructions Recorded Confirmed Type calcium carb-ergocalciferol (vit 1 tablet PO DAILY 02/06/23 06/04/23 History D2) 600 mg calcium-200 unit tablet ondansetron HCl 8 mg tablet 8 mg PO Q8H PRN Nausea 02/06/23 06/04/23 History venlafaxine 75 mg capsule,extended 75 mg PO DAILY 02/06/23 06/04/23 History release 24 hr acetaminophen 325 mg tablet 650 mg PO Q4H PRN Pain (Scale 04/03/23 06/04/23 History (Tylenol) Score 1-3) prochlorperazine maleate 10 mg 10 mg PO Q4H PRN nausea 04/03/23 06/04/23 History tablet carvedilol 3.125 mg tablet 3.125 mg PO BID 06/04/23 06/04/23 History Patient hx anesthesia problems: none Family hx anesthesia problems: none Results Review: All pre-operative results and documents have been reviewed as part of the pre-operative evaluation. [facility] Past Medical History Medical History Metastasis from breast cancer Surgical History Surgical History History of hysterectomy History of mastectomy Family History Family History Mother Family history of diabetes mellitus in first degree relative Social History Social History Smoking status: Never smoker Second hand tobacco smoke exposure: No Alcohol intake: current Drinks per week: 2 Alcohol use details: WINE ON WEEKENDS Substance use: current Substance use type: marijuana Other substance usage details: GUMMY DURING CHEMO Lack of Transportation: No Lack of Food: Never True Current Housing: I Have Housing Concerned About Future Housing: No Difficulty Paying Gas/Electric Bills: No Difficulty Paying for Meds: No Currently Unemployed: No Education: Master's Degree or Higher Difficulty w/ Childcare or Family Care: No Living arrangements: with family Spiritual care concerns: No Anes - Eval Final PreProcedure Day of Procedure 06/13/23 11:08 Patient weight: normal Heart: regular rate and rhythm Lungs: clear to auscultation Airway: Mallampati scale class II Neurological: alert and oriented Last oral intake: >/= 8 hours ASA classification: IV Emergent: no Anesthetic plan: proceed Anesthesia type and monitoring: general LMA and standard monitoring Results Review: All pre-operative results and documents have been reviewed as part of the pre-operative evaluation. Informed Consent: The patient's anesthetic plan and its attendant risks and benefits were discussed with the patient/family/POA. Questions were solicited and answers provided to the satisfaction of the patient/family/POA.
[2023-06-13] MEDS: LACTATED RINGERS 1,000 ML 30 ML IV CONT (11:20)
[2023-06-13] MEDS: SCOPOLAMINE 1.5 MG PATCH TRANSDERM (11:27)
[2023-06-13] MEDS: ceFAZolin 2 GM/D5W 50 ML 2 GM/50 ML BAG IVPB (11:49)
[2023-06-13] MEDS: LIDOCAINE HCL 2% GEL UROJET 10 ML PKG MUCOUS MEM (11:57)
--- NOTE | 2023-06-13 14:01 | W.PM.PROC2 ---
Procedure Note - Detailed Date of Procedure 06/13/23 Pre-op Diagnosis Wale Hydronephrosis Post-op Diagnosis Same Procedure Performed cystoscopy, bilateral ureteral catheter exchange Surgeon Sandor Colmenares MD Anesthesia MAC Description of Procedure patient is brought to the operative suite where she is prepped and draped in routine sterile fashion in dorsal lithotomy position. 2% xylocaine jelly was introduced intraurethrally and systemic sedation is administered per the anesthesia department. Cystoscopy was undertaken with a 21 F rigid cystoscope. Bladder mucosa is normal. There was no intravesical foreign body and no signs of residual or recurrent neoplasm. The ureteral orifices appeared to be in a normal position today. The stent showed no sign of encrustation after having been replaced 2 months ago. The stents were exchanged over 0.035 in Glidewires, replacing with 6 F variable length stent. Patient tolerated the procedure well. I will plan to change the stents again in 4 months Drains Yes Packing No Pathology None sent
== END 2023-06-13 13:37 | disposition home or self-care (01) ==
PROVIDERS: PCP Family Medicine Adolescent Medicine; Visit Provider Urology
PROC: (CPT 52352; principal; 2023-06-13 12:30)
DX: N13.30 Unspecified hydronephrosis (principal); Z85.3 Personal history of malignant neoplasm of breast
CPT/HCPCS: 52332; A9270; C1769; C2617; J0690; J1100; J2405; J2704; J7120

== ENCOUNTER 2023-09-26 00:35 | Day surgery (SDC) | payer OTHER, SELFPAY ==
--- NOTE | 2023-09-24 06:48 | P.HP_ITS ---
History of Present Illness History of Present Illness Consent: Risks, benefits, and alternatives have been discussed and questions answered. Patient agrees to proceed with procedure. 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 This has been managed with chronic indwelling ureteral stents. She now presents for ureteral stent exchange. Review of Systems Review of Systems: All systems reviewed & are unremarkable except as noted in HPI and below PMFSH Past Medical History Medical History Metastasis from breast cancer Surgical History Surgical History History of hysterectomy History of mastectomy Family History Family History Mother Family history of diabetes mellitus in first degree relative Social History Social History Smoking status: Never smoker Second hand tobacco smoke exposure: No Alcohol intake: current Drinks per week: 2 Alcohol use details: WINE ON WEEKENDS Substance use: current Substance use type: marijuana Other substance usage details: GUMMY DURING CHEMO Lack of Transportation: No Lack of Food: Never True Current Housing: I Have Housing Concerned About Future Housing: No Difficulty Paying Gas/Electric Bills: No Difficulty Paying for Meds: No Currently Unemployed: No Education: Master's Degree or Higher Difficulty w/ Childcare or Family Care: No Living arrangements: with family Spiritual care concerns: No Meds Home Medications and Allergies Home Medications Medication Instructions Recorded Confirmed Type calcium carb-ergocalciferol (vit 1 tablet PO DAILY 02/06/23 06/13/23 History D2) 600 mg calcium-200 unit tablet ondansetron HCl 8 mg tablet 8 mg PO Q8H PRN Nausea 02/06/23 06/04/23 History venlafaxine 75 mg capsule,extended 75 mg PO DAILY 02/06/23 06/04/23 History release 24 hr acetaminophen 325 mg tablet 650 mg PO Q4H PRN Pain (Scale 04/03/23 06/04/23 History (Tylenol) Score 1-3) prochlorperazine maleate 10 mg 10 mg PO Q4H PRN nausea 04/03/23 06/04/23 History tablet carvedilol 3.125 mg tablet 3.125 mg PO BID 06/04/23 06/13/23 History Allergies Allergy/AdvReac Type Severity Reaction Status Date / Time Sulfa (Sulfonamide Allergy Unknown Redness of Verified 06/13/23 11:44 Antibiotics) Skin morphine AdvReac Mild Nausea and Verified 06/13/23 11:44 Vomiting Exam Const: General: no acute distress Resp: Effort & Inspection: normal respiratory effort GI: Inspection: non-distended GI Palp: No abdominal tenderness and No Guarding due to palpation present (GI) Auscultation: normal bowel sounds Assessment and Plan Assessment and plan (1) Bilateral hydronephrosis: Code(s): N13.30 - Unspecified hydronephrosis Status: Acute Assessment and Plan: * Cystoscopy with bilateral ureteral stent exchange, possible bilateral retrograde pyelography
[2023-09-25 09:23] VITALS: BMI 24.5
--- NOTE | 2023-09-25 09:29 | PC.NURSE ---
Report to the Outpatient Waiting Room, entrance under the green pavilion located off [facility], at time 0915 on date 09/26/23. Planned Procedure Time: 1115. Time changes happen often and if your time is changed the preop area will call you the afternoon before. - You and your visitor will be asked to self-screen and do not enter if you have any COVID symptoms. - A mask is optional within the hospital at this time. Patients may have clear liquids (water, carbonated beverages, clear teas, apple juice) until 3 hours prior to surgery with a maximum of 20 ounces. - No food from midnight until time of surgery Take the following medications with a SIP of water the morning of surgery: CARVEDILOL DO NOT STOP ANY OF YOUR OTHER PRESCRIPTION MEDICATIONS PRIOR TO SURGERY ?EXCEPT THE FOLLOWING Medications to discontinue per physician: VITAMINS Date to take last dose: NO MORE UNTIL AFTER SURGERY PT STATES INSTRUCTED TO STOP XARELTO 2 DAYS PRIOR TO SURGERY PER OFFICE Please no make-up, nail bulgarian, hairspray, perfume, deodorant, or body powder the day of surgery. No jewelry (including any body piercings) or valuables the day of surgery, leave them at home. Please take a shower or bath the night before, or the morning of, surgery with an antibacterial soap. Wear comfortable, loose fitting clothing. - Jewelry must be removed prior to entering the operating room. Rings and piercings that are not removed may be cut off. - The hospital will not accept responsibility for valuables. - Please leave all valuables, including medications, at home the day of surgery. If you are going home after surgery, a licensed van driver must drive you home. - NO public transportation without another adult if you receive anesthesia. - We recommend that an adult stay with you for 24 hours following discharge. - We also recommend that you do not drive, make important decision, drink alcoholic beverages, or take any drugs that were not prescribed by your health care provider for at least 24 hours after your discharge time. Follow any additional instructions given to you from your surgeon. If you or anyone in your household have experienced Covid symptoms in the past week, please notify your surgeon or the nurse liaison at the phone number below for possible testing. Telephone instructions given to PT - LUL and asked if any additional questions and then verbalized understanding. Patient advised to call surgeon office or pre surgery nurse liaison [phone] if any additional questions.
--- NOTE | 2023-09-25 10:39 | WPDANESEPPF ---
Anes - Initial Pre Proc Eval Procedure: Operation Date: 09/26/23 11:15 Proposed Procedures p Cystoscopy, Bilateral Ureteral Stent Exchange - Sandor Colmenares MD Date/Time: 09/25/23 10:39 Surgeon: Sandor Colmenares MD Pre Op Diagnosis: Ureteral Obstruction, Bilateral Hydronephrosis Patient Data Age: 63 Gender: F Height: 1.52 m Weight: 57.15 kg Allergies Allergy/AdvReac Type Severity Reaction Status Date / Time Sulfa (Sulfonamide Allergy Unknown Redness of Verified 09/25/23 09:20 Antibiotics) Skin morphine AdvReac Mild Nausea and Verified 09/25/23 09:20 Vomiting Home Medications Medication Instructions Recorded Confirmed Type calcium carb-ergocalciferol (vit 1 tablet PO DAILY 02/06/23 09/25/23 History D2) 600 mg calcium-200 unit tablet ondansetron HCl 8 mg tablet 8 mg PO Q8H PRN Nausea 02/06/23 09/25/23 History venlafaxine 75 mg capsule,extended 75 mg PO DAILY 02/06/23 09/25/23 History release 24 hr acetaminophen 325 mg tablet 650 mg PO Q4H PRN Pain (Scale 04/03/23 09/25/23 History (Tylenol) Score 1-3) prochlorperazine maleate 10 mg 10 mg PO Q4H PRN nausea 04/03/23 09/25/23 History tablet carvedilol 3.125 mg tablet 3.125 mg PO BID 06/04/23 09/25/23 History capecitabine 500 mg tablet 1,500 mg PO BID 09/25/23 09/25/23 History rivaroxaban 10 mg tablet (Xarelto) 10 mg PO BID 09/25/23 09/25/23 History Patient hx anesthesia problems: none Family hx anesthesia problems: none Results Review: All pre-operative results and documents have been reviewed as part of the pre-operative evaluation. [facility] Past Medical History Medical History (Updated 09/25/23 @ 10:40 by Morro Arteaga DO) DVT (deep venous thrombosis) Metastasis from breast cancer PONV (postoperative nausea and vomiting) Surgical History Surgical History (Updated 09/25/23 @ 10:40 by Morro Arteaga DO) History of cholecystectomy History of hysterectomy History of mastectomy Family History Family History Mother Family history of diabetes mellitus in first degree relative Social History Social History Smoking status: Never smoker Second hand tobacco smoke exposure: No Alcohol intake: current Drinks per week: 2 Alcohol use details: SMALL AMOUNT ON WEEKENDS ONLY Substance use: never Substance use type: does not use Other substance usage details: GUMMY DURING CHEMO Lack of Transportation: No Lack of Food: Never True Current Housing: I Have Housing Concerned About Future Housing: No Difficulty Paying Gas/Electric Bills: No Difficulty Paying for Meds: No Currently Unemployed: No Education: Master's Degree or Higher Difficulty w/ Childcare or Family Care: No Living arrangements: with family Spiritual care concerns: No Anes - Eval Final PreProcedure Day of Procedure 09/25/23 10:39 Patient weight: normal Heart: regular rate and rhythm Lungs: clear to auscultation Airway: Mallampati scale class III Neurological: alert and oriented Last oral intake: >/= 8 hours ASA classification: III Emergent: no Anesthetic plan: proceed Anesthesia type and monitoring: general GIVS and standard monitoring Results Review: All pre-operative results and documents have been reviewed as part of the pre-operative evaluation. Informed Consent: The patient's anesthetic plan and its attendant risks and benefits were discussed with the patient/family/POA. Questions were solicited and answers provided to the satisfaction of the patient/family/POA.
--- NOTE | ~2023-09-26 | XR_ITS ---
EXAMINATION: XR retrograde pyelo w/stent BI DATE: 09/26/2023 11:53 INDICATION: Bilateral ureteral stent exchange and retrograde pyelograms TECHNIQUE: 78 fluoroscopic images of the abdomen and pelvis were obtained during procedure performed by Dr. Colmenares. Radiologist was not present for the imaging or procedure. The amount of fluoroscopy ti me used during this procedure was 1.1 minutes. COMPARISON: 06/13/2023 FINDINGS: Initial image demonstrates bilateral internal ureteral stents. Subsequent images demonstrate withdraw al of 3 stents and retrograde contrast injection first into the right and subsequently into the left ureters. Bilateral ureters and renal collecting systems are unremarkable with no urothelial irregular ities or stones. Following the retrograde pyelograms the bilateral internal ureteral stents have been replaced with loops formed in expected positions at the bladder and bilateral renal pelvises sees. C holecystectomy clips the right upper quadrant. IMPRESSION: 1. Fluoroscopy utilized during replacement bilateral intraureteral stents with the newly placed stent s in expected position. See procedure note for further detail. Reviewed, dictated and finalized at location L. IMPRESSION: 1. Fluoroscopy utilized during replacement bilateral intraureteral stents with the newly placed stents in expected position. See procedure note for further de tail.
--- NOTE | 2023-09-26 06:21 | WPDHPUPDATE1 ---
History and Physical Update Update Date/Time: 09/26/23 06:21 History and Physical has been reviewed, including an updated exam of the patient. There are NO changes in the patient's condition. Risks, benefits, and alternatives have been discussed and questions answered. Patient agrees to proceed with procedure.
[2023-09-26] MEDS: LACTATED RINGERS 1,000 ML 30 ML IV CONT ×2 (10:10→11:54)
[2023-09-26 10:20] VITALS: BP 110/68; PULSE 87; RESP 16; TEMP 36.9; O2SAT 100
[2023-09-26] MEDS: SCOPOLAMINE 1 MG PATCH 1 PATCH TRANSDERM (11:00)
[2023-09-26] MEDS: ceFAZolin 2 GM/D5W 50 ML 2 GM/50 ML BAG IVPB (11:27)
[2023-09-26 11:54] VITALS: BP 95/54; PULSE 78; RESP 12; O2SAT 98
--- NOTE | 2023-09-26 11:57 | W.PM.PROC2 ---
Procedure Note - Detailed Date of Procedure 09/26/23 Pre-op Diagnosis Ureteral Obstruction, Bilateral Hydronephrosis Post-op Diagnosis Other Procedure Performed Cystoscopy, bilateral retrograde pyelography, bilateral ureteral stent exchange Surgeon Sandor Colmenares MD Anesthesia MAC Description of Procedure Patient is brought to the operative suite where she is prepped and draped in routine sterile fashion in dorsal lithotomy position.? 2% xylocaine jelly was introduced intraurethrally and systemic sedation is administered per the anesthesia department.? Cystoscopy was undertaken with a 21 F rigid cystoscope.? Bladder mucosa is normal.? There was no intravesical foreign body and no signs of residual or recurrent neoplasm.? The ureteral orifices appeared to be in a normal position today.? The stents showed no sign of encrustation after having been replaced 4 months ago.? The stents were exchanged over 0.035 in Glidewires, replacing with 6 F variable length stent.? I did perform bilateral retrograde pyelography with a Prescott catheter to ensure appropriate positioning of the stents. Patient tolerated the procedure well.? I will plan to change the stents again in 4 months
[2023-09-26 12:25] VITALS: BP 112/62; PULSE 87; RESP 16
[2023-09-26 12:55] VITALS: BP 129/56; PULSE 93; RESP 16
== END 2023-09-26 13:17 | disposition home or self-care (01) ==
PROVIDERS: PCP Family Medicine Adolescent Medicine; Visit Provider Urology
PROC: (CPT 52352; principal; 2023-09-26 11:15)
DX: N13.30 Unspecified hydronephrosis (principal); Z79.01 Long term (current) use of anticoagulants; Z98.890 Other specified postprocedural states; Z90.49 Acquired absence of other specified parts of digestive tract; Z85.3 Personal history of malignant neoplasm of breast; Z86.718 Personal history of other venous thrombosis and embolism
CPT/HCPCS: 52332; 74420; A9270; C1758; C1769; C2617; J0690; J1100; J2250; J2405; J2704; J3010; J7120; Q9966

== ENCOUNTER 2023-11-18 08:43 | Emergency (ER) | payer OTHER, SELFPAY ==
--- NOTE | 2023-11-18 08:45 | ED.SKABFB ---
HPI - Skin/Abscess/Foreign Bdy General Chief complaint: Skin/Abscess/Foreign Body Stated complaint: Bug Bite on Left Arm Time Seen by Provider: 11/18/23 09:30 Source: patient and RN notes reviewed Mode of arrival: ambulatory Limitations: no limitations History of Present Illness HPI narrative: 63-year-old female presents concern for insect bite. She reports she got bit by something while doing yd work on Saturday. She denies pain or itching at the bite site. She reports she noticed a bruise surrounding the bite site, she circled it yesterday in the coloration is still within the boundaries. She denies any pain, itching, swelling, drainage. She does take a blood thinner. In a separate complaint she reports a rash starting on her arm that she thinks is poison nafisa. The rash is not correlated with the insect bite. She denies fever, body aches, chills, sweats, she did not pull a tick off of her skin. MD complaint: rash and insect bite/sting Related Data Home Medications Medication Instructions Recorded Confirmed calcium carb-ergocalciferol (vit 1 tablet PO DAILY 02/06/23 11/18/23 D2) 600 mg calcium-200 unit tablet ondansetron HCl 8 mg tablet 8 mg PO Q8H Nausea 02/06/23 11/18/23 venlafaxine 75 mg capsule,extended 75 mg PO DAILY 02/06/23 11/18/23 release 24 hr acetaminophen 325 mg tablet 650 mg PO Q4H Pain (Scale Score 04/03/23 11/18/23 (Tylenol) 1-3) prochlorperazine maleate 10 mg 10 mg PO Q4H nausea 04/03/23 11/18/23 tablet carvedilol 3.125 mg tablet 3.125 mg PO BID 06/04/23 11/18/23 capecitabine 500 mg tablet 1,500 mg PO BID 09/25/23 11/18/23 rivaroxaban 10 mg tablet (Xarelto) 10 mg PO BID 09/25/23 11/18/23 Allergies Allergy/AdvReac Type Severity Reaction Status Date / Time Sulfa (Sulfonamide Allergy Unknown Redness of Verified 11/18/23 08:55 Antibiotics) Skin morphine AdvReac Mild Nausea and Verified 11/18/23 08:55 Vomiting Review of Systems Review of Systems: CONSTITUTIONAL: Denies malaise, chills, sweats, or fever. EYES: Denies redness, or discharge. ENT: Denies rhinorrhea, congestion, swollen lips, swollen tongue CARDIOVASCULAR: Denies chest pain, palpitations, or edema. RESPIRATORY: Denies cough or dyspnea. GASTROINTESTINAL: Denies abdominal pain, nausea, vomiting SKIN: Reports rash to her left upper arm. Reports bruise around an insect bite on her left lower arm MUSCULOSKELETAL: Denies joint pain or myalgia. NEUROLOGIC: Denies headache. 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 PONV (postoperative nausea and vomiting) Surgical History Surgical History (Updated 09/25/23 @ 10:40 by Morro Arteaga DO) History of cholecystectomy History of hysterectomy History of mastectomy Family History Family History Mother Family history of diabetes mellitus in first degree relative Social History Social History Smoking status: Never smoker Second hand tobacco smoke exposure: No Alcohol intake: current Drinks per week: 2 Alcohol use details: SMALL AMOUNT ON WEEKENDS ONLY Substance use: never Substance use type: does not use Other substance usage details: GUMMY DURING CHEMO Lack of Transportation: No Lack of Food: Never True Current Housing: I Have Housing Concerned About Future Housing: No Difficulty Paying Gas/Electric Bills: No Difficulty Paying for Meds: No Currently Unemployed: No Education: Master's Degree or Higher Difficulty w/ Childcare or Family Care: No Living arrangements: with family Spiritual care concerns: No Comments At time of signature, agree with nursing past medical, surgical, social and family history. There is no relevant fami
[2023-11-18 08:53] VITALS: BP 105/62; PULSE 82; RESP 18; TEMP 36.4; O2SAT 100
== END 2023-11-18 09:47 | disposition home or self-care (01) ==
PROVIDERS: Emergency Provider Nurse Practitioner; PCP Family Medicine Adolescent Medicine
DX: L25.9 Unspecified contact dermatitis, unspecified cause (principal); S40.862A Insect bite (nonvenomous) of left upper arm, initial encounter; Z86.718 Personal history of other venous thrombosis and embolism; Z79.01 Long term (current) use of anticoagulants; Z85.3 Personal history of malignant neoplasm of breast
CPT/HCPCS: 99213; G0463

== ENCOUNTER 2024-02-05 08:57 | Outpatient (CLI) | payer OTHER, SELFPAY ==
--- NOTE | ~2024-02-05 | US_ITS ---
EXAMINATION:US venous doppler LE RT INDICATION:Acute DVT TECHNIQUE: Multiple grayscale, color flow and Doppler images of the right lower extremity deep venous systems were obtained and reviewed. COMPARISON:02/21/2012 FINDINGS: The common femoral, superficial femoral and popliteal veins demonstrate normal respiratory variation, augmentation and compressibility. Color flow is also seen within the posterior tibial, pe roneal, greater saphenous and profunda veins. IMPRESSION: 1: No lower extremity deep venous thrombosis. Reviewed, dictated and finalized at location B.
== END 2024-02-05 08:58 | disposition home or self-care (01) ==
PROVIDERS: PCP Family Medicine Adolescent Medicine; Visit Provider Internal Medicine Medical Oncology
DX: I82.401 Acute embolism and thrombosis of unspecified deep veins of right lower extremity (principal)
CPT/HCPCS: 93971

== ENCOUNTER 2024-02-20 02:08 | Day surgery (SDC) | payer OTHER, SELFPAY ==
--- NOTE | 2024-02-12 07:16 | PM.HPGS ---
History of Present Illness History of Present Illness Consent: Risks, benefits, and alternatives have been discussed and questions answered. Patient agrees to proceed with procedure. 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 This has been managed with chronic indwelling ureteral stents. She now presents for ureteral stent exchange. currently, we changed the stents on an every 4 month basis Review of Systems Review of Systems: All systems reviewed & are unremarkable except as noted in HPI and below PMFSH Past Medical History Medical History (Updated 11/19/23 @ 00:01 by Adan Scott) DVT (deep venous thrombosis) Metastasis from breast cancer PONV (postoperative nausea and vomiting) Surgical History Surgical History (Updated 09/25/23 @ 10:40 by Morro Arteaga DO) History of cholecystectomy History of hysterectomy History of mastectomy Family History Family History Mother Family history of diabetes mellitus in first degree relative Social History Social History Smoking status: Never smoker Second hand tobacco smoke exposure: No Alcohol intake: current Drinks per week: 2 Alcohol use details: SMALL AMOUNT ON WEEKENDS ONLY Substance use: never Substance use type: does not use Other substance usage details: GUMMY DURING CHEMO Lack of Transportation: No Lack of Food: Never True Current Housing: I Have Housing Concerned About Future Housing: No Difficulty Paying Gas/Electric Bills: No Difficulty Paying for Meds: No Currently Unemployed: No Education: Master's Degree or Higher Difficulty w/ Childcare or Family Care: No Living arrangements: with family Spiritual care concerns: No Meds Home Medications and Allergies Home Medications Medication Instructions Recorded Confirmed Type calcium carb-ergocalciferol (vit 1 tablet PO DAILY 02/06/23 11/18/23 History D2) 600 mg calcium-200 unit tablet ondansetron HCl 8 mg tablet 8 mg PO Q8H Nausea 02/06/23 11/18/23 History venlafaxine 75 mg capsule,extended 75 mg PO DAILY 02/06/23 11/18/23 History release 24 hr acetaminophen 325 mg tablet 650 mg PO Q4H Pain (Scale Score 04/03/23 11/18/23 History (Tylenol) 1-3) prochlorperazine maleate 10 mg 10 mg PO Q4H nausea 04/03/23 11/18/23 History tablet carvedilol 3.125 mg tablet 3.125 mg PO BID 06/04/23 11/18/23 History capecitabine 500 mg tablet 1,500 mg PO BID 09/25/23 11/18/23 History rivaroxaban 10 mg tablet (Xarelto) 10 mg PO BID 09/25/23 11/18/23 History triamcinolone acetonide 0.1 % 1 applic topical BID 7 days #80 11/18/23 Rx topical cream grams Allergies Allergy/AdvReac Type Severity Reaction Status Date / Time Sulfa (Sulfonamide Allergy Unknown Redness of Verified 11/18/23 08:55 Antibiotics) Skin morphine AdvReac Mild Nausea and Verified 11/18/23 08:55 Vomiting Exam Const: General: no acute distress Resp: Effort & Inspection: normal respiratory effort GI: Inspection: non-distended GI Palp: No abdominal tenderness and No Guarding due to palpation present (GI) Auscultation: normal bowel sounds Assessment and Plan Assessment and plan (1) Bilateral hydronephrosis: Code(s): N13.30 - Unspecified hydronephrosis Status: Acute Assessment and Plan: cystoscopy, bilateral ureteral stent exchange
[2024-02-18 14:34] VITALS: BMI 23.1
--- NOTE | 2024-02-18 14:36 | PC.NURSE ---
Report to the Outpatient Waiting Room, entrance under the green pavilion located off [facility], at time _0800_ on date _[id number]_. Planned Procedure Time: _1000_. Time changes happen often and if your time is changed the preop area will call you the afternoon before. - You and your visitor will be asked to self-screen and do not enter if you have any COVID symptoms. - A mask is optional within the hospital at this time. Patients may have clear liquids (water, carbonated beverages, clear teas, apple juice) until 3 hours prior to surgery with a maximum of 20 ounces. - No food from midnight until time of surgery Take the following medications with a SIP of water the morning of surgery: ___Carvidilol DO NOT STOP ANY OF YOUR OTHER PRESCRIPTION MEDICATIONS PRIOR TO SURGERY ?EXCEPT THE FOLLOWING Medications to discontinue per physician Calcium and D2 Date to take last dose Stop now until after surgery. Please no make-up, nail [place], hairspray, perfume, deodorant, or body powder the day of surgery. No jewelry (including any body piercings) or valuables the day of surgery, leave them at home. Please take a shower or bath the night before, or the morning of, surgery with an antibacterial soap. Wear comfortable, loose fitting clothing. - Jewelry must be removed prior to entering the operating room. Rings and piercings that are not removed may be cut off. - The hospital will not accept responsibility for valuables. - Please leave all valuables, including medications, at home the day of surgery. If you are going home after surgery, a licensed entry level truck driver must drive you home. - NO public transportation without another adult if you receive anesthesia. - We recommend that an adult stay with you for 24 hours following discharge. - We also recommend that you do not drive, make important decision, drink alcoholic beverages, or take any drugs that were not prescribed by your health care provider for at least 24 hours after your discharge time. Follow any additional instructions given to you from your surgeon. If you or anyone in your household have experienced Covid symptoms in the past week, please notify your surgeon or the nurse liaison at the phone number below for possible testing. Telephone instructions given to __Mary__and asked if any additional questions and then verbalized understanding. Patient advised to call surgeon office or pre surgery nurse liaison [phone] if any additional questions.
[2024-02-20] VITALS (7 sets, daily range): BP systolic 109–127; BP diastolic 67–80; PULSE 58–71; RESP 12–18; TEMP 36.4–36.7; O2SAT 100
--- NOTE | ~2024-02-20 | XR_ITS ---
EXAMINATION: XR stent kub - surgery DATE: 02/20/2024 10:15 INDICATION: Bilateral internal ureteral stent exchange TECHNIQUE: Fluoroscopic images from a bilateral internal ureteral stent exchange are submitted for re view. 73 seconds of fluoroscopy time. 4 fluoroscopic images FINDINGS: There is a bilateral double-J internal ureteral stent projecting in expected position, with proximal [place] loop at the level of the renal pelvis and distal loop in the pelvis within the bladder lumen. IMPRESSION: 1. Bilateral internal ureteral stent exchange. Please refer to real-time procedural findings for de tails. Reviewed, dictated and finalized at location B. IMPRESSION: 1. Bilateral internal ureteral stent exchange. Please refer to real-time proc edural findings for details.
--- NOTE | 2024-02-20 06:12 | WPDHPUPDATE1 ---
History and Physical Update Update Date/Time: 02/20/24 06:12 History and Physical has been reviewed, including an updated exam of the patient. There are NO changes in the patient's condition. Risks, benefits, and alternatives have been discussed and questions answered. Patient agrees to proceed with procedure.
--- NOTE | 2024-02-20 08:23 | WPDANESEPPF ---
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 Patient Data Age: 63 Gender: F Height: 1.52 m Weight: 53.6 kg Allergies Allergy/AdvReac Type Severity Reaction Status Date / Time Sulfa (Sulfonamide Allergy Unknown Redness of Verified 02/18/24 14:26 Antibiotics) Skin morphine AdvReac Mild Nausea and Verified 02/18/24 14:26 Vomiting Home Medications Medication Instructions Recorded Confirmed Type calcium carb-ergocalciferol (vit 1 tablet PO DAILY 02/06/23 02/18/24 History D2) 600 mg calcium-200 unit tablet ondansetron HCl 8 mg tablet 8 mg PO Q8H PRN Nausea 02/06/23 02/18/24 History acetaminophen 325 mg tablet 650 mg PO Q4H Pain (Scale Score 04/03/23 02/18/24 History (Tylenol) 1-3) prochlorperazine maleate 10 mg 10 mg PO Q4H PRN nausea 04/03/23 02/18/24 History tablet carvedilol 3.125 mg tablet 3.125 mg PO BID 06/04/23 02/18/24 History capecitabine 500 mg tablet 1,500 mg PO BID 09/25/23 02/18/24 History Patient hx anesthesia problems: none Family hx anesthesia problems: none Results Review: All pre-operative results and documents have been reviewed as part of the pre-operative evaluation. [facility] Past Medical History Medical History DVT (deep venous thrombosis) Metastasis from breast cancer PONV (postoperative nausea and vomiting) Surgical History Surgical History History of cholecystectomy History of hysterectomy History of mastectomy Family History Family History Mother Family history of diabetes mellitus in first degree relative Social History Social History Smoking status: Never smoker Second hand tobacco smoke exposure: No Alcohol intake: current Drinks per week: 4 Alcohol use details: SMALL AMOUNT ON WEEKENDS ONLY Substance use: never Substance use type: does not use Other substance usage details: GUMMY DURING CHEMO Lack of Transportation: No Lack of Food: Never True Current Housing: I Have Housing Concerned About Future Housing: No Difficulty Paying Gas/Electric Bills: No Difficulty Paying for Meds: No Currently Unemployed: No Education: Master's Degree or Higher Difficulty w/ Childcare or Family Care: No Living arrangements: with family Spiritual care concerns: No Anes - Eval Final PreProcedure Day of Procedure 02/20/24 08:23 Patient weight: normal Heart: regular rate and rhythm Lungs: clear to auscultation Airway: Mallampati scale class III Neurological: alert and oriented Last oral intake: >/= 8 hours ASA classification: III Emergent: no Anesthetic plan: proceed Anesthesia type and monitoring: general LMA and standard monitoring Results Review: All pre-operative results and documents have been reviewed as part of the pre-operative evaluation. Informed Consent: The patient's anesthetic plan and its attendant risks and benefits were discussed with the patient/family/POA. Questions were solicited and answers provided to the satisfaction of the patient/family/POA.
[2024-02-20] MEDS: LACTATED RINGERS 1,000 ML 30 ML IV CONT (08:25)
[2024-02-20] MEDS: SCOPOLAMINE 1 MG PATCH 1 PATCH TRANSDERM (09:00)
[2024-02-20] MEDS: ceFAZolin 2 GM/D5W 50 ML 2 GM/50 ML BAG IVPB (09:46)
--- NOTE | 2024-02-20 10:21 | W.PM.PROC2 ---
Procedure Note - Detailed Date of Procedure 02/20/24 Pre-op Diagnosis Bilateral hydronephrosis, retroperitoneal fibrosis Post-op Diagnosis Same Procedure Performed Cystoscopy, bilateral ureteral stent exchanges Surgeon Sandor Colmenares MD Anesthesia General Description of Procedure Patient is brought to the operative suite where she is prepped and draped in routine sterile fashion in dorsal lithotomy position.? 2% xylocaine jelly was introduced intraurethrally and systemic sedation is administered per the anesthesia department.? Cystoscopy was undertaken with a 21 F rigid cystoscope.? Bladder mucosa is normal.? There was no intravesical foreign body and no signs of residual or recurrent neoplasm.? The ureteral orifices appeared to be in a normal position today.? The stents showed no sign of encrustation after having been replaced a bit over 4 months ago.? The stents were exchanged over 0.035 in Glidew[place], replacing with 6 F variable length stent.? I did perform bilateral retrograde pyelography with a [place] catheter to ensure appropriate positioning of the stents. Patient tolerated the procedure well.? I will plan to change the stents again in 5 months Drains No Packing No Pathology None sent
--- NOTE | 2024-02-20 10:39 | SUR.PHASEI ---
1038: patient requests to go to outpatient recovery to use the restroom.
== END 2024-02-20 11:10 | disposition home or self-care (01) ==
PROVIDERS: PCP Family Medicine Adolescent Medicine; Visit Provider Urology
PROC: (CPT 52352; principal; 2024-02-20 10:00)
DX: N13.30 Unspecified hydronephrosis (principal); K68.2 Retroperitoneal fibrosis; Z98.890 Other specified postprocedural states; Z90.49 Acquired absence of other specified parts of digestive tract; Z85.3 Personal history of malignant neoplasm of breast; Z86.718 Personal history of other venous thrombosis and embolism; Z92.21 Personal history of antineoplastic chemotherapy
CPT/HCPCS: 52332; A9270; C1769; C2617; J0690; J1100; J2405; J2704; J3010; J7120

== ENCOUNTER 2024-08-06 01:02 | Day surgery (SDC) | payer OTHER, SELFPAY ==
[2024-07-29 09:50] VITALS: BMI 24.4
--- NOTE | 2024-07-29 09:51 | PC.NURSE ---
Report to the Outpatient Waiting Room, entrance under the green pavilion located off [facility], at time _0630_ on date _[id number]_. Planned Procedure Time: _0830_.? Time changes happen often and if your time is changed the preop area will call you the afternoon before. - You and your visitor will be asked to self-screen and do not enter if you have any COVID symptoms. Please call surgeon if you need to reschedule. - A mask is optional within the hospital at this time. Patients may have clear liquids (water, carbonated beverages, clear teas, apple juice) until 3 hours prior to surgery with a maximum of 20 ounces. - No food from midnight until time of surgery and no smoking. This includes no chewing gum, candy or mints. Take only the following medications with a SIP of water on the morning of surgery: ___Acetaminophen or nause medication if needed____ DO NOT STOP ANY OF YOUR OTHER PRESCRIPTION MEDICATIONS PRIOR TO SURGERY EXCEPT THE FOLLOWING Medications to discontinue per physician ___Calcium and Magnesium___ Date to take last urmk___[id number]___ Please no make-up, nail welsh, hairspray, perfume, deodorant, or body powder the day of surgery.? No jewelry (including any body piercings) or valuables the day of surgery, leave them at home.? Please take a shower or bath the night before, or the morning of, surgery with an antibacterial soap.? Wear comfortable, loose fitting clothing.? - Jewelry must be removed prior to entering the operating room.? Rings and piercings that are not removed may be cut off. - The hospital will not accept responsibility for valuables.? - Please leave all valuables, including medications, at home the day of surgery. If you are going home after surgery, a licensed oil truck driver must drive you home.? - NO public transportation without another adult if you receive anesthesia. - We recommend that an adult stay with you for 24 hours following discharge. - We also recommend that you do not drive, make important decision, drink alcoholic beverages, or take any drugs that were not prescribed by your health care provider for at least 24 hours after your discharge time. Follow any additional instructions given to you from your surgeon. Telephone instructions given to __Maryam__and asked if any additional questions and then verbalized understanding. Patient advised to call surgeon office or pre surgery nurse liaison [phone] if any additional questions.
--- NOTE | 2024-07-29 17:04 | PM.HPGS ---
History of Present Illness History of Present Illness Consent: Risks, benefits, and alternatives have been discussed and questions answered. Patient agrees to proceed with procedure. 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 This has been managed with chronic indwelling ureteral stents. She now presents for ureteral stent exchange. The last stent exchange was on February 12, 2024. Review of Systems Review of Systems: All systems reviewed & are unremarkable except as noted in HPI and below PMFSH Past Medical History Medical History DVT (deep venous thrombosis) Metastasis from breast cancer PONV (postoperative nausea and vomiting) Surgical History Surgical History History of cholecystectomy History of hysterectomy History of mastectomy Family History Family History Mother Family history of diabetes mellitus in first degree relative Social History Social History Smoking status: Never smoker Second hand tobacco smoke exposure: No Alcohol intake: current Drinks per week: 2 Alcohol use details: SMALL AMOUNT ON WEEKENDS ONLY Substance use: never Substance use type: marijuana Other substance usage details: CBD gummies during chemo, not very often Lack of Transportation: No Lack of Food: Never True Current Housing: I Have Housing Concerned About Future Housing: No Difficulty Paying Gas/Electric Bills: No Difficulty Paying for Meds: No Currently Unemployed: No Education: Master's Degree or Higher Difficulty w/ Childcare or Family Care: No Living arrangements: with family Spiritual care concerns: No Meds Home Medications and Allergies Home Medications ?Medication ?Instructions ?Recorded ?Confirmed ?Type calcium carb-ergocalciferol (vit 1 tablet PO DAILY 02/06/23 07/29/24 History D2) 600 mg calcium-200 unit tablet ondansetron HCl 8 mg tablet 8 mg PO Q8H PRN Nausea 02/06/23 07/29/24 History acetaminophen 325 mg tablet 650 mg PO Q4H Pain (Scale Score 04/03/23 07/29/24 History (Tylenol) 1-3) prochlorperazine maleate 10 mg 10 mg PO Q4H PRN nausea 04/03/23 07/29/24 History tablet magnesium oxide 400 mg (241.3 mg 400 mg PO HS 07/29/24 07/29/24 History magnesium) tablet oxybutynin chloride 5 mg 5 mg PO DAILY 07/29/24 07/29/24 History tablet,extended release 24 hr Allergies Allergy/AdvReac Type Severity Reaction Status Date / Time Sulfa (Sulfonamide Allergy Unknown Redness of Verified 07/29/24 09:41 Antibiotics) Skin morphine AdvReac Mild Nausea and Verified 07/29/24 09:41 Vomiting Exam Const: General: no acute distress Resp: Effort & Inspection: normal respiratory effort GI: Inspection: non-distended GI Palp: No abdominal tenderness and No Guarding due to palpation present (GI) Auscultation: normal bowel sounds Assessment and Plan Assessment and plan (1) Bilateral hydronephrosis: Code(s): N13.30 - Unspecified hydronephrosis Status: Acute Assessment and Plan: Cystoscopy, bilateral ureteral stent exchange
[2024-08-06] VITALS (7 sets, daily range): BP systolic 110–147; BP diastolic 64–91; PULSE 58–82; RESP 12–18; TEMP 36.7–36.9; O2SAT 100
--- NOTE | ~2024-08-06 | XR_ITS ---
EXAMINATION: XR retrograde pyelo w/stent BI DATE: 08/06/2024 08:31 INDICATION: Bilateral internal ureteral stent placement TECHNIQUE: Fluoroscopic images from a bilateral internal ureteral stent placement are submitted for jennifer platt. 68 seconds of of fluoroscopy time. FINDINGS: There are bilateral double-J internal ureteral stent projecting in expected position, with proximal C o[place] loop at the level of the renal pelvis and distal loop in the pelvis within the bladder lumen. IMPRESSION: 1. Bilateral internal ureteral stent placement. Please refer to real-time procedural findings for d etails. Reviewed, dictated and finalized at location A. AR SETTER IMPRESSION: 1. Bilateral internal ureteral stent placement. Please refer to real-time pro cedural findings for details.
--- NOTE | 2024-08-06 06:23 | WPDHPUPDATE1 ---
History and Physical Update Update Date/Time: 08/06/24 06:23 History and Physical has been reviewed, including an updated exam of the patient. There are NO changes in the patient's condition. Risks, benefits, and alternatives have been discussed and questions answered. Patient agrees to proceed with procedure.
--- NOTE | 2024-08-06 07:15 | WPDANESEPPF ---
Anes - Initial Pre Proc Eval Procedure: Operation Date: 08/06/24 08:30 Proposed Procedures p Cystoscopy, Bilateral Ureteral Stent Exchange - Sandor Colmenares MD Date/Time: 08/06/24 07:15 Surgeon: Sandor Colmenares MD Pre Op Diagnosis: Bilateral Hydronephrosis Patient Data Age: 64 Gender: F Height: 1.52 m Weight: 56.8 kg Last Vital Signs Temp 98.5 F 08/06/24 07:00 Pulse 82 08/06/24 07:00 Resp 18 08/06/24 07:00 BP 110/68 08/06/24 07:00 Pulse Ox 100 08/06/24 07:00 O2 Del Method Room Air 08/06/24 07:00 Allergies Allergy/AdvReac Type Severity Reaction Status Date / Time Sulfa (Sulfonamide Allergy Unknown Redness of Verified 08/06/24 07:12 Antibiotics) Skin morphine AdvReac Mild Nausea and Verified 08/06/24 07:12 Vomiting Home Medications ?Medication ?Instructions ?Recorded ?Confirmed ?Type calcium carb-ergocalciferol (vit 1 tablet PO DAILY 02/06/23 07/29/24 History D2) 600 mg calcium-200 unit tablet ondansetron HCl 8 mg tablet 8 mg PO Q8H PRN Nausea 02/06/23 07/29/24 History acetaminophen 325 mg tablet 650 mg PO Q4H Pain (Scale Score 04/03/23 07/29/24 History (Tylenol) 1-3) prochlorperazine maleate 10 mg 10 mg PO Q4H PRN nausea 04/03/23 07/29/24 History tablet magnesium oxide 400 mg (241.3 mg 400 mg PO HS 07/29/24 07/29/24 History magnesium) tablet oxybutynin chloride 5 mg 5 mg PO DAILY 07/29/24 07/29/24 History tablet,extended release 24 hr Patient hx anesthesia problems: none Family hx anesthesia problems: none Results Review: All pre-operative results and documents have been reviewed as part of the pre-operative evaluation. [facility] Past Medical History Medical History PONV (postoperative nausea and vomiting) DVT (deep venous thrombosis) Metastasis from breast cancer Surgical History Surgical History History of cholecystectomy History of mastectomy History of hysterectomy Family History Family History Mother Family history of diabetes mellitus in first degree relative Social History Social History Smoking status: Never smoker Second hand tobacco smoke exposure: No Alcohol intake: current Drinks per week: 2 Alcohol use details: SMALL AMOUNT ON WEEKENDS ONLY Substance use: never Substance use type: marijuana Other substance usage details: CBD gummies during chemo, not very often Lack of Transportation: No Lack of Food: Never True Current Housing: I Have Housing Concerned About Future Housing: No Difficulty Paying Gas/Electric Bills: No Difficulty Paying for Meds: No Currently Unemployed: No Education: Master's Degree or Higher Difficulty w/ Childcare or Family Care: No Living arrangements: with family Spiritual care concerns: No Anes - Eval Final PreProcedure Day of Procedure 08/06/24 07:15 Patient weight: normal Heart: regular rate and rhythm Lungs: normal air movement Airway: Mallampati scale class II Neurological: alert and oriented Last oral intake: >/= 8 hours ASA classification: III Emergent: no Anesthetic plan: proceed Anesthesia type and monitoring: general LMA and standard monitoring Results Review: All pre-operative results and documents have been reviewed as part of the pre-operative evaluation. 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 Informed Consent: The patient's anesthetic plan and its attendant risks and benefits were discussed with the patient/family/POA. Questions were solicited and answers provided to the satisfaction of the patient/family/POA.
[2024-08-06] MEDS: LACTATED RINGERS 1,000 ML 30 ML IV CONT (07:31)
[2024-08-06] MEDS: SCOPOLAMINE 1 MG PATCH 1 PATCH TRANSDERM (07:32)
[2024-08-06] MEDS: LIDOCAINE 2% GEL UROJET 10 ML PKG MUCOUS MEM (08:06)
[2024-08-06] MEDS: ceFAZolin 2 GM/D5W 50 ML 2 GM/50 ML BAG IVPB (08:06)
--- NOTE | 2024-08-06 08:28 | W.PM.PROC2 ---
Procedure Note - Detailed Date of Procedure 08/06/24 Pre-op Diagnosis Bilateral Hydronephrosis Post-op Diagnosis Same Procedure Performed Cystoscopy, bilateral retrograde pyelography, bilateral ureteral stent exchange Surgeon Sandor Colmenares MD Anesthesia General Description of Procedure Patient is brought to the operative suite where she is prepped and draped in routine sterile fashion in dorsal lithotomy position.? 2% xylocaine jelly was introduced intraurethrally and systemic sedation is administered per the anesthesia department.? Cystoscopy was undertaken with a 21 F rigid cystoscope.? Bladder mucosa is normal.? There was no intravesical foreign body and no signs of residual or recurrent neoplasm.? The ureteral orifices appeared to be in a normal position today.? The stents showed signs of slight encrustation after having been replaced a bit over 5 months ago.? The stents were exchanged over 0.035 in [place], replacing with 6 F variable length stent.? I did perform bilateral retrograde pyelography with a [place] catheter to ensure appropriate positioning of the stents. Patient tolerated the procedure well.? I will plan to change the stents again in 5 months Packing No Pathology None sent Complications No immediate complications Condition Stable
== END 2024-08-06 09:54 | disposition home or self-care (01) ==
PROVIDERS: PCP Family Medicine Adolescent Medicine; Visit Provider Urology
PROC: (CPT 52352; principal; 2024-08-06 08:30)
DX: N13.30 Unspecified hydronephrosis (principal)
CPT/HCPCS: 52332; 74420; A9270; C1758; C1769; C2617; J0690; J1100; J2405; J2704; J7120; Q9966

== ENCOUNTER 2024-12-24 03:43 | Day surgery (SDC) | payer OTHER, SELFPAY ==
[2024-12-10 14:46] VITALS: BMI 25.4
--- NOTE | 2024-12-10 15:05 | PC.NURSE ---
Report to the Outpatient Waiting Room, entrance under the green pavilion located off [facility], at time ___11:00AM____ on date ___12/24/24____. Planned Procedure Time: ___1:00PM .? Time changes happen often and if your time is changed the preop area will call you the afternoon before. - You and your visitor will be asked to self-screen and do not enter if you have any COVID symptoms. Please call surgeon if you need to reschedule. - A mask is optional within the hospital at this time. Patients may have clear liquids (water, carbonated beverages, clear teas, apple juice) until 3 hours prior to surgery (10:00AM) with a maximum of 20 ounces. - No food from midnight until time of surgery and no smoking, or chewing tobacco (or any form of nicotine). No chewing gum, candy or mints. Take only the following medications with a SIP of water on the morning of surgery: ___CIPRO, IF STILL TAKING ON DAY OF SERVICE. ONDANSETRON OR PROCHLORPERAZINE NEEDED DO NOT STOP ANY OF YOUR OTHER PRESCRIPTION MEDICATIONS PRIOR TO SURGERY EXCEPT THE FOLLOWING Hold all vitamins and supplements for 3 days per anesthesiologist. LAST DOSE 12/20/24 Please no make-up, nail icelandic, hairspray, perfume, deodorant, or body powder the day of surgery.? No jewelry (including any body piercings) or valuables the day of surgery, leave them at home.? Please take a shower or bath the night before, or the morning of, surgery with an antibacterial soap.? Wear comfortable, loose fitting clothing.? - Jewelry must be removed prior to entering the operating room.? Rings and piercings that are not removed may be cut off. - The hospital will not accept responsibility for valuables.? - Please leave all valuables, including medications, at home the day of surgery. If you are going home after surgery, a licensed limo driver must drive you home.? - NO public transportation without another adult if you receive anesthesia. - We recommend that an adult stay with you for 24 hours following discharge. - We also recommend that you do not drive, make important decision, drink alcoholic beverages, or take any drugs that were not prescribed by your health care provider for at least 24 hours after your discharge time. Follow any additional instructions given to you from your surgeon. Telephone instructions given to ___PATIENT and asked if any additional questions and then verbalized understanding. Patient advised to call surgeon office or pre surgery nurse liaison [phone] if any additional questions.
--- NOTE | 2024-12-22 08:29 | PM.HPGS ---
History of Present Illness History of Present Illness Consent: Risks, benefits, and alternatives have been discussed and questions answered. Patient agrees to proceed with procedure. 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 This has been managed with chronic indwelling ureteral stents. She now presents for ureteral stent exchange. The last stent exchange was on Jul,. Review of Systems Review of Systems: All systems reviewed & are unremarkable except as noted in HPI and below PMFSH Past Medical History Medical History PONV (postoperative nausea and vomiting) DVT (deep venous thrombosis) Metastasis from breast cancer Surgical History Surgical History History of cholecystectomy History of mastectomy History of hysterectomy Family History Family History Mother Family history of diabetes mellitus in first degree relative Social History Social History Smoking status: Never smoker Second hand tobacco smoke exposure: No Alcohol intake: current Drinks per week: 2 Alcohol use details: SMALL AMOUNT ON WEEKENDS ONLY Substance use: never Substance use type: marijuana Other substance usage details: CBD gummies during chemo, not very often Lack of Transportation: No Lack of Food: Never True Current Housing: I Have Housing Concerned About Future Housing: No Difficulty Paying Gas/Electric Bills: No Difficulty Paying for Meds: No Currently Unemployed: No Education: Master's Degree or Higher Difficulty w/ Childcare or Family Care: No Living arrangements: with family Additional living arrangements comments: [facility] Spiritual care concerns: No Meds Home Medications and Allergies Home Medications ?Medication ?Instructions ?Recorded ?Confirmed ?Type calcium carb-ergocalciferol (vit 1 tablet PO DAILY 02/06/23 12/10/24 History D2) 600 mg calcium-200 unit tablet ondansetron HCl 8 mg tablet 8 mg PO Q8H PRN Nausea 02/06/23 12/10/24 History acetaminophen 325 mg tablet 650 mg PO Q4H Pain (Scale Score 04/03/23 12/10/24 History (Tylenol) 1-3) prochlorperazine maleate 10 mg 10 mg PO Q4H PRN nausea 04/03/23 12/10/24 History tablet magnesium oxide 400 mg (241.3 mg 400 mg PO HS 07/29/24 12/10/24 History magnesium) tablet oxybutynin chloride 5 mg 5 mg PO DAILY 07/29/24 12/10/24 History tablet,extended release 24 hr ciprofloxacin HCl 500 mg tablet 500 mg PO Q12H 12/10/24 12/10/24 History Allergies Allergy/AdvReac Type Severity Reaction Status Date / Time Sulfa (Sulfonamide Allergy Unknown Redness of Verified 12/10/24 14:40 Antibiotics) Skin morphine AdvReac Mild Nausea and Verified 12/10/24 14:40 Vomiting Exam Const: General: no acute distress Resp: Effort & Inspection: normal respiratory effort GI: Inspection: non-distended GI Palp: No abdominal tenderness and No Guarding due to palpation present (GI) Auscultation: normal bowel sounds
[2024-12-24] VITALS (7 sets, daily range): BP systolic 89–133; BP diastolic 56–84; PULSE 69–82; RESP 12–16; TEMP 36.3–36.4; O2SAT 98–100
--- NOTE | ~2024-12-24 | XR_ITS ---
EXAMINATION: XR retrograde pyelo w/stent BI DATE: 12/24/2024 11:56 INDICATION: Bilateral internal ureteral stent placement TECHNIQUE: Fluoroscopic images from a bilateral internal ureteral stent placement are submitted for jennifer platt. 67 seconds of fluoroscopy of fluoroscopy time. FINDINGS: There are bilateral double-J internal ureteral stent projecting in expected position, with proximal C ope loop at the level of the renal pelvis and distal loop in the pelvis within the bladder lumen. IMPRESSION: 1. Bilateral internal ureteral stent placement. Please refer to real-time procedural findings for d etails. Reviewed, dictated and finalized at location B. IMPRESSION: 1. Bilateral internal ureteral stent placement. Please refer to real-time pro cedural findings for details.
--- OUTSIDE RECORDS SUMMARY | 2024-12-24 03:47 | XMS_ITS | Encounter Summary ---
Author Organization [facility] Address [address] [place] [address] Phone Care Team Providers Care Maintenance Fitter Name Role Phone Martin Mann MD Unavailable Reymundo Arnold DO Unavailable [phone] Provider, None Primary Care Provider UnavailGregor Gonzáles MD Unavailable [phone] Lizbeth Andres MD Unavailable [phone] Reason for Visit * Reason Comments Medication Refill Encounter Details Date Type Department Care Team (Late st Contact Info) Description 03/19/2024 Refill [facility] [address] [place] [address] Earlene Perez, PIG STICKER, GROCERY ASSOCIATE [address] [place] [address] [id number] Medication Refill Social History Tobacco Use Types Packs/Day Years Used Date Smoking Tobacco: Never Smokeless Tobacco: Never Alcohol Use Standard Drinks/Week Comments Yes 2 (1 standard drink = 0.6 oz pur e alcohol) PHQ-2 Answer Date Recorded Total Score - Questions 1-9 0 01/13 Sexually Active Control Partners Comments Not Currently Comments No Sex and Gender Information Value Date Recorded Sex Assigned at Female 02/26/2023 10:35 AM CDT Legal Sex Female 10:22 AM CDT Gender Identity Female 02/26/2023 10:35 AM CDT Sexual Orientation Not on file documented as of this encounter Plan of Treatment Upcoming Encounters Date Type Department Care Team (Late st Contact Info) Description 12/28/2024 9:30 AM CDT Clinical Support [facility] [address] [place] [phone] 12/28/2024 9:45 AM CDT Office Visit [facility] [address] [place] [phone] Reymundo Arnold DO [address] [place] [address] documented as of this encounter Visit Diagnoses Diagnosis Malignant neoplasm of overlapping sites of right breast in female, estrogen receptor positive (HCC) documented in this encounter Additional Health Concerns Assessment Noted Time PHQ-9 Depression Total Score: 0 03/28/20 10:03 AM CDT documented as of this encounter Care Teams Maintenance Fitter Relationship Specialty Start Date End Date Provider, None [place] PCP - General 12/13/20 Martin Mann MD [address] [facility] [address] [place] [address] 1st Process Mechanic Obstetrics & Gynecology 03/23/19 Reymundo Arnold DO [address] [place] [phone] Consulting Physician Oncology 09/26/20 Gregor Canela MD [address] [address] Gastroenterology 11/14/21 Lizbeth Andres MD [address] [place] [address] General Surgery 11/14/21 documented as of this encounter
--- OUTSIDE RECORDS SUMMARY | 2024-12-24 03:47 | XMS_ITS | Encounter Summary ---
Author Organization [facility] Address [address] [place] [address] Phone Care Team Providers Care Gas Treater Name Role Phone Martin Mann MD Unavailable Reymundo Arnold DO Unavailable [phone] Provider, None Primary Care Provider UnavailGregor Gonzáles MD Unavailable [phone] Lizbeth Andres MD Unavailable [phone] Reason for Visit * Reason Comments Medication Refill Encounter Details Date Type Department Care Team (Late st Contact Info) Description 09/12/2022 Refill [facility] [address] [place] [address] Reymundo Arnold, DO [address] [place] [address] Medication Refill Social History Tobacco Use Types [...] AM CDT Sexual Orientation Not on file COVID-19 Exposure Response Date Recorded In the last 10 days, have yo u been in contact with someone who was confirmed or suspected to have Coronavirus/COVID-19? No / Unsure 09/07/2022 10:38 AM WAXER OPERATOR documented as of this encounter Miscellaneous Notes * Telephone Encounter - Blue Stewart RN - 09/12/2022 12:16 PM CST Refill request from pharmacy. Refill if appropriate. R OPERATOR documented in this encounter Plan of Treatment Upcoming Encounters Date Type Department Care Team (Late st Contact Info) Description 12/28/2024 9:30 AM CDT Clinical [facility] [address] [address] 12/28/2024 9:45 AM CDT Office Visit [facility] [address] [phone] Reymundo Arnold DO [address] [place] [phone] documented as of this encounter Visit Diagnoses Diagnosis Malignant neoplasm of overlapping sites of breast in female, estrogen receptor positive, unspecified laterality (HCC) documented in this encounter Additional Health Concerns Assessment Noted Time PHQ-9 Depression Total Score: 0 03/28/20 21 10:03 AM CDT documented as of this encounter Care Teams Gas Treater Relationship Specialty Start Date End Date Provider, None [place] PCP - General 12/13/20 Martin Mann MD [address] [address] 1st Food Technician Obstetrics & Gynecology 03/23/19 Reymundo Arnold DO [address] [place] [phone] Consulting Physician Oncology 09/26/20 Gregor Canela MD [address] [address] Gastroenterology 11/14/21 Lizbeth Andres MD [address] [place] [address] General Surgery 11/14/21 documented as of this encounter
--- OUTSIDE RECORDS SUMMARY | 2024-12-24 03:47 | XMS_ITS | Encounter Summary ---
Author Organization [facility] Address [address] [place] [address] Phone Care Team Providers Care Rn Integrated Name Role Phone Martin Mann MD Unavailable Reymundo Arnold DO Unavailable [phone] Provider, None Primary Care Provider UnavailGregor Gonzáles MD Unavailable [phone] Lizbeth Andres MD Unavailable [phone] Reason for Visit * Reason Comments Medication Refill Encounter Details Date Type Department Care Team (Late st Contact Info) Description 01/27/2021 Refill [facility] [address] [place] [address] Reymundo Arnold, DO [address] [place] [address] Medication Refill Social History Tobacco [...] on file documented as of this encounter Miscellaneous Notes * Telephone Encounter - Katarzyna Kendall RMA - 01/30/2021 4:14 PM CDT Refill request from pharmacy. Refill if appropriate. documented in this encounter Plan of Treatment Upcoming Encounters Date Type Department Care Team (Late st Contact Info) Description 12/28/2024 9:30 AM CDT Clinical [facility] [address] [phone] 12/28/2024 9:45 AM CDT [facility] [address] [phone] Reymundo Arnold DO [address] [place] [phone] documented as of this encounter Visit Diagnoses Not on filedocumented in this encounter Additional Health Concerns Assessment Noted Time PHQ-9 Depression Total Score: 0 12/21/19 11:29 AM CDT documented as of this encounter Care Teams Rn Integrated Relationship Specialty Start Date End Date Provider, None [place] PCP - General 12/13/20 Martin Mann MD [address] [facility] [address] [place] [address] 1st Stitcher Utility Obstetrics & Gynecology 03/23/19 Reymundo Arnold DO [address] [place] [phone] Consulting Physician Oncology 09/26/20 Gregor Canela MD [address] [address] Gastroenterology 11/14/21 Lizbeth Andres MD [address] [place] [address] General Surgery 11/14/21 documented as of this encounter
--- OUTSIDE RECORDS SUMMARY | 2024-12-24 03:47 | XMS_ITS | Encounter Summary ---
Author Organization [facility] Address [address] [place] [address] Phone Care Team Providers Care Wire Mesh Filter Fabricator Name Role Phone Martin Mann MD Unavailable Reymundo Arnold DO Unavailable [phone] Provider, None Primary Care Provider UnavailGregor Gonzáles MD Unavailable [phone] Lizbeth Andres MD Unavailable [phone] Reason for Visit * Reason Comments Medication Refill Encounter Details Date Type Department Care Team (Late st Contact Info) Description 11/15/2023 Refill [facility] [address] [place] [address] Reymundo Arnold, DO [address] [place] [address] Medication Refill Social History Tobacco [...] encounter Miscellaneous Notes * Telephone Encounter - Anika Wilson RN - 11/15/2023 10:42 AM CDT Refill request from pharmacy. Please fill if appropriate. documented in this encounter Plan of Treatment Upcoming Encounters Date Type Department Care Team (Late st Contact Info) Description 12/28/2024 9:30 AM CDT Clinical [facility] [address] [address] 12/28/2024 9:45 AM CDT [facility] [address] [address] Reymundo Arnold DO [address] [place] [address] documented as of this encounter Visit Diagnoses Diagnosis Malignant neoplasm of overlapping sites of right breast in female, estrogen receptor positive (HCC) documented in this encounter Additional Health Concerns Assessment Noted Time PHQ-9 Depression Total Score: 0 03/28/20 21 10:03 AM CDT documented as of this encounter Care Teams Wire Mesh Filter Fabricator Relationship Specialty Start Date End Date Provider, None [place] PCP - General 12/13/20 Martin Mann MD [address] [address] 1st Cafe Assistant Obstetrics & Gynecology 03/23/19 Reymundo Arnold DO [address] [place] [phone] Consulting Physician Oncology 09/26/20 Gregor Canela MD [address] [address] Gastroenterology 11/14/21 Lizbeth Andres MD [address] [place] [address] General Surgery 11/14/21 documented as of this encounter
--- OUTSIDE RECORDS SUMMARY | 2024-12-24 03:47 | XMS_ITS | Referral Summary ---
Author Organization [facility] Address [address] [place] [address] Phone Care Team Providers Care Catalogue Compiler Name Role Phone Macho Moody MD Primary Care Prov ider Martin Spicer DO Unavailable [phone] Allergies Active Allergy Reactions Criticality Noted Date Comments Acesulfame Unknown 03/27/2013 Prochlorperazine Unknown Sulfa (Sulfonamide Antibiotics) Medications cholecalciferol (VITAMIN D-3) 10,000 unit capsule Take 10,000 Units by mouth daily. Active black cohosh 200 mg capsule Take by mouth. Active anastrozole (ARIMIDEX) 1 mg tablet Take 1 tablet (1 mg total) by mouth daily 90 tablet 1 02/02/2019 Active alendronate (FOSAMAX) 70 mg tablet Take 1 tablet (70 mg total) by mouth every 7 days 4 tablet 5 02/02/2019 Active venlafaxine XR (EFFEXOR-XR) 75 mg 24 hr capsule TAKE 1 CAPSULE(75 MG) BY MOUTH DAILY 30 capsule 2 05/07/2019 Active Active Problems Problem Noted Date Diagnosed Date Osteopenia of lumbar spine 01/10/2018 Malignant neoplasm of overla pping sites of right breast in female, estrogen receptor positive 01/10/2018 Cancer Staging:Clinical stage from 2010:Stage IIIB(cT4a, cN3a, cM0, G2, ER: Positive, [place]: Positive, HER2: Negative) - Signed by Martin Spicer DO on 01/10/2018 Immunizations Immunization Administration Dates Next Due Influenza, Unspecified 07/05/2017,05/09/2016,,10/06/2013 Social History Tobacco Use Types Packs/Day Years Used Date Smoking Tobacco: Never Smokeless Tobacco: Never Alcohol Use Standard Drinks/Week Comments Yes 2 (1 standard drink = 0.6 oz pur e alcohol) Personal Safety Answer Date Recorded Getting School Help Needed Not on file 09/08 Comments Unknown Sex and Gender Information Value Date Recorded Sex Assigned at Not on file Legal Sex Female 1:56 PM FOOD CONSULTANT Gender Identity Female 01/10/2018 11:47 AM CDT Sexual Orientation Not on file Last Filed Vital Signs Vital Sign Reading Time Taken Comments Blood Pressure 127/84 02/02/2019 10:42 AM CDT Pulse 82 02/02/2019 10:42 AM CDT Temperature 36.8 C (98.2 F) 02/02/2019 10:42 AM CDT Respiratory Rate 12 02/02/2019 10:42 AM CDT Oxygen Saturation 99% 02/02/2019 10:42 AM CDT Inhaled Oxygen Concentration - - Weight 62.9 kg (138 lb 9.6 oz) 02/02/2019 10:42 AM CDT Height 156.2 cm (5' 1.5) 02/02/2019 10:42 AM CD T Body Mass Index 25.76 02/02/2019 10:42 AM CDT Plan of Treatment Not on file Insurance [facility] [employer] [facility] HMO Care Teams Catalogue Compiler Relationship Specialty Start Date End Date Macho Moody MD [address] [place] [id number] PCP - General Family Medicine 01/10/18 Martin Spicer DO [address] [place] [id number] Medical Oncologist/Associate Professor Of Psychology Hematology and Oncology 07/30/18
--- OUTSIDE RECORDS SUMMARY | 2024-12-24 03:47 | XMS_ITS | Clinical Summary ---
Author Organization [facility] Address [address] [place] [address] Care Team Providers Care Weight Count Operator Name Role Phone Macho Moody MD Primary Care Provider + Source Comments [facility] Affiliates and Associated Physician Practices is amultiple site organization consisting of ambulatory clinics and hospital sitesin [place], [place], [place] and [place]. This disclosure is being madepursuant to the Care Everywhere program and may not contain all information available regarding this patient. Last updated 18.[facility] Allergies Active Allergy Reactions Criticality Noted Date Comments Morphine Nausea and/or Vomiting 02/24/2019 Can take with zofran Sulfa Drugs Urticaria,Other Medium 02/23/2019 Skin turned bright red like sunburn Medications * Be aware that medications may not be up to date on this document. Alwaysverify current medications with the patient. 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 Cancer Staging:Pathologic stage from 06/03/2019:Stage IIIC2(pT1a, pN2a, cM0) - Signed by Jerry Ren MD on 06/03/2019 S/P BRIAN-BSO (total abdominal hysterectomy and bilateral salpingo-oophorectomy) 02/27/2019 Malignant neoplasm of overla pping sites of right breast in female, estrogen receptor positive (2010) 01/10/2018 Cancer Staging:Clinical stage from 2010:Stage IIIC(T4a, N3a, M0) - Signed by Jerry Ren MD on 06/03/2019 Overview (06/03/2019): -Right mastectomy -Adjuvant chemotherapy -Adjuvant post-mastectomy radiotherapy -Adjuvant endocrine therapy Osteopenia of lumbar spine 01/10/2018 Social History Tobacco Use Types Packs/Day Years Used Date Smoking Tobacco: Never Smokeless Tobacco: Never Alcohol Use Standard Drinks/Week Comments Yes 3 (1 standard drink = 0.6 oz pur e alcohol) weekends AUDIT-C Answer Date Recorded Frequency of Alcohol Consumption Never 02/23/2019 Average Number of Drinks Not on file 019 Frequency of Binge Drinking Never 02/12 Comments No Sex and Gender Information Value Date Recorded Sex Assigned at Not on file Legal Sex Female 9:59 AM CDT Gender Identity Not on file Sexual Orientation Not on file Last Filed Vital Signs Vital Sign Reading Time Taken Comments Blood Pressure 102/64 10/28/2023 9:26 AM CDT Pulse 105 11/10/2021 10:20 AM CDT Temperature 36.6 C (97.8 F) 11/10/2021 8:00 AM CDT Respiratory Rate 11 11/10/2021 10:20 AM CDT Oxygen Saturation 100% 11/10/2021 10:20 AM CDT Inhaled Oxygen Concentration - - Weight 55.4 kg (122 lb 3.2 oz) 10/28/2023 9:26 A M CDT Height 152.4 cm (5') 10/28/2023 9:26 AM CDT Body Mass Index 23.87 10/28/2023 9:26 AM CDT Plan of Treatment Health Maintenance Due Date Last Done Comments COLOGUARD (AGES 45-75) - COLON CA SCREENING 1960 CT COLONOGRAPHY - COLON CA SCREENING 1960 FIT - COLON CA SCREENING 1960 FLEX SIG - COLON CA SCREENING 1960 LIPID TESTING 1960 HIV SCREENING 1975 HEPATITIS C SCREENING 05/01/1978 DTAP/TDAP/TD VACCINES (1 - Tdap) 1979 PNEUMOCOCCAL VACCINE 50+ (1 of 2 - PCV) 1979 ZOSTER VACCINE (1 of 2) 1979 Respiratory Syncytial Virus (RSV) Vaccine Pt: or over 60 yrs (1 - Risk 60-74 years 1-dose series) 2020 MAMMOGRAM 07/28/2020 07/28/2018 (Done Outside Per Report) COVID-19 VACCINE ( season) 2024 05/18/2022, 12/01/2021, 05/16/2021, Additional history exists DEPRESSION SCREENING 07/15/2024 COLON MONITORING 11/11/2031 11/10/2021, , 09/27/2021 COLONOSCOPY - COLON CA SCREENING 11/11/2031 11/10/2021, 11/10/2021, 09/27/2021 Colorectal Cancer Screening 11/11/2031 INFLUENZA VACCINE Completed 05/02/2024, , 07/05/2017, Additional history exists HEPATITIS B VACCINE Aged Out No longe r eligible based on patient's age to complete this topic HIB VACCINE Aged Out No longer eligi ble based on patient's age to complete this topic HPV VACCINE Aged Out No longer eligi ble based on patient's age to complete this topic MENINGOCOCCAL (Group B) VACCINE SHARED DECISION-MAKING Aged Out No longer eligible based on patient's age to complete this topic MENINGOCOCCAL GROUPS A/C/Y/W VACCINE Aged Out No longer eligible based on patient's age to complete this topic Procedures Procedure Name Priority Date/Time Associated Diagnosis Comments ENDOSCOPY, COLON, DIAGNOSTIC Routine 11/10/2021 8:35 AM CDT from Last 3 Months or Most Recently Relevant to Health Maintenance Results * ENDOSCOPY, COLON, DIAGNOSTIC (11/10/2021 8:35 AM CDT) Report Endoscopy POC Endoscopy Department Report _ Patient Name: Lul Shelton Procedure Date: 11/10/2021 8:35 AM Date of : 1960 Classification: Outpatient Gender: Female Ethnicity: Not or Race: White _ Providers: Gregor Hilliard MD Referring MD: Lizbeth Andres MD; Reymundo Arnold DO; Macho Moody MD Procedure: Colonoscopy Indications: Abnormal PET scan of the GI tract Medications: See the Anesthesia note for documentation of the administered medications Patient Profile: 61F w/ narrowing of the rectosigmoid colon in setting of prior extensive pelvic surgery and radiotherapy, with recent failed colonoscopy, a biopsy however showed adenomatous tissue (unclear if a polyp was seen). # 09/[address]: Thickening of rectosigmoid colon w/ increased metabolic activity concerning for colitis/proctitis . Thickening with increased metabolic activity and adjacent induration in descending colon, rule out cancer. # 10/2021 CTAP: Diffuse thickening and narrowing of the rectosigmoid colon and asymmetric thickening of the proximal sigmoid colon - suspected benign changes secondary to radiation. Soft tissue thickening at the splenic flexure w/ pericolonic soft tissue stranding, rule out underlying mass. # 10/2021 MRI: 6 cm long segment of thickening and narrowing of the rectosigmoid colon may represent sequela of radiation. 3.4 cm segment of wall thickening at the splenic flexure, rule out underlying mass. Description of Procedure: After I obtained informed consent, the scope was passed under direct vision. Throughout the procedure, the patient's blood pressure, pulse, and oxygen saturations were monitored continuously. A pediatric colonoscope was introduced through the anus and advanced to the rectum. A gastroscope was introduced through the anus and advanced to the rectum. An ultraslim scope was introduced through the anus and advanced to the splenic flexure. The exam was performed without difficulty. The patient tolerated the procedure well. The quality of the bowel preparation was adequate. Findings: - One small 4 mm sessile polyp was found in the rectum. This was removed with a cold snare. Resection and retrieval were complete. - There was very severe long segment narrowing extending from the recto-sigmoid junction to the proximal sigmoid colon. The area of narrowing could only be traversed after down-sizing to an ultraslim scope. The underlying mucosa demonstrated diffuse erythema and irregularity, likely representing radiation induced changes. Random biopsies were taken with a pediatric cold forceps for histology from the area of narrowing to rule out underlying malignancy. - There was focal irregular mucosa with ulceration in the descending colon. This was biopsied with a pediatric cold forceps for histology. - There was severe narrowing at the splenic flexure. The area of narrowing could not be traversed with the ultraslim scope. The underlying mucosa demonstrated diffuse nodularity. Random biopsies were taken with a pediatric cold forceps for histology to rule out underlying malignancy. Estimated Blood Loss: Estimated blood loss was minimal. Complications: No immediate complications. Impression: - One small 4 mm polyp in the rectum, removed with a cold snare. - Very severe long segment narrowing extending from the recto-sigmoid junction to the proximal sigmoid colon, only traversed after down-sizing to an ultraslim scope. The underlying mucosa demonstrated diffuse erythema and irregularity, biopsies obtained. - Focal irregular mucosa with ulceration in the descending colon, biopsies obtained. - Severe narrowing at the splenic flexure, unable to be traversed with the ultraslim scope. The underlying mucosa demonstrated diffuse nodularity, biopsies obtained. Note Incomplete exam to the level of the splenic flexure. Moderate Sedation: MAC Recommendation: - Patient has a contact number available for emergencies. The signs and symptoms of potential delayed complications were discussed with the patient. Return to normal activities tomorrow. Written discharge instructions were provided to the patient. - Resume previous diet. - Continue present medications. - Await pathology results. Further management accordingly. - Follow-up with referring providers. Attending Participation: I personally performed the entire procedure. Procedure Code(s): --- Professional --- 19902, 52, Colonoscopy, flexible; with removal of tumor(s), polyp(s), or other lesion(s) by snare technique 11753, 59,52, Colonoscopy, flexible; with biopsy, single or multiple Diagnosis Code(s): --- Professional --- K56.699, Other intestinal obstruction unspecified as to partial versus complete obstruction K62.1, Rectal polyp R93.3, Abnormal findings on diagnostic imaging of other parts of digestive tract CPT copyright 2019 [employer]. All rights reserved. The codes documented in this report are preliminary and upon locomotive electrician review may be revised to meet current compliance requirements. Gregor Hilliard MD 11/10/2021 10:05:26 AM Note Initiated On: 11/10/2021 8:35 AM Number of Addenda: [id number] [place] [address] PROVATION 11/10/2021 8:35 AM CDT Gregor Hilliard MD GI PROCEDURE ORDERAB LES Edited Result - Final [facility] PROVATION from Last 3 Months or Most Recently Relevant to Health Maintenance Insurance AETNA AETNA Care Teams Weight Count Operator Relationship Specialty Start Date End Date Macho Moody MD [address] [address] PCP - General 02/13/19
--- OUTSIDE RECORDS SUMMARY | 2024-12-24 03:47 | XMS_ITS | Clinical Summary ---
Author Organization [facility] Address [address] [place] [address] Phone Care Team Providers Care Rope Twisting Machine Operator Name Role Phone Macho Moody MD Primary Care Prov ider Martin Spicer DO Unavailable [phone] Allergies Active Allergy Reactions Criticality Noted Date [...] 2010:Stage IIIB(cT4a, cN3a, cM0, G2, ER: Positive, VT: Positive, HER2: Negative) - Signed by Martin Spicer DO on 01/10/2018 Immunizations Immunization Administration Dates Next Due Influenza, Unspecified 07/05/2017,05/09/2016,,10/06/2013 Surgical History Surgery Date Site/Laterality Comments BREAST BIOPSY BREAST RECONSTRUCTION Medical History Medical History Date Comments Breast cancer (HCC) Family History Medical History Relation Name Comments Cancer Maternal Great-Grandfather Colon cancer Maternal Great-Grandmother Relation Name Status Comments Maternal Great-Grandfather l kimberlee cx Maternal Great-Grandmother Social History Tobacco Use Types Packs/Day Years [...] on file Legal Sex Female 1:56 PM MANUAL CONTROL AUGER PRESS OPERATOR Gender Identity Female 01/10/2018 11:47 AM CDT Sexual Orientation Not on file Obstetrics History Last Filed Vital Signs Vital Sign Reading [...] 02/02/2019 10:42 AM CDT Plan of Treatment Health Maintenance Due Date Last Done Comments Breast Cancer Screening-Mammogram 1960 Cervical Cancer Screening 1960 Colon Cancer Screening-Colonoscopy 1960 Depression Screening 1960 Hepatitis C Screening 1960 DTaP/Tdap/Td Vaccine (1 - Tdap) 1971 Hepatitis B Screening 1978 Regular Well Visit/Exam 18-64 1978 Pneumococcal vaccine <65 (1 of 2 - PCV) 1979 Zoster Vaccine (1 of 2) 1979 Covid-19 Vaccine (2023-2 5 season) 2024 12/01/2021, 05/16/2021, 10/05/2020, Additional history exists Influenza Vaccine (Season Ended) 2025 07/05/2017, 05/09/2016, 05/04/2015, Additional history exists Insurance [employer] [place] [facility] Care Teams Rope Twisting Machine Operator Relationship Specialty Start Date End Date Macho Moody MD [address] [place] [address] PCP - General Family Medicine 01/10/18 Martin Spicer DO [address] [place] [address] Medical Oncologist/Gasoline Truck Crane Operator Hematology and Oncology 07/30/18
--- OUTSIDE RECORDS SUMMARY | 2024-12-24 03:47 | XMS_ITS | Encounter Summary ---
Author Organization [facility] Address [address] [place] [address] Phone Care Team Providers Care Board Worker Name Role Phone Zoe Phan APN Primary Care Provider Martin Power MD Unavailable Reymundo Arnold DO Unavailable [phone] Provider, None Primary Care Provider Unavailabl e Gregor Canela MD Unavailable [phone] Lizbeth Andres MD Unavailable [phone] Encounter Details Date Type Department Care Team (Late st Contact Info) Description 01/11/2020 Telephone [facility] [address] [place] [address] Reymundo Arnold, DO [address] [place] [address] Social History Tobacco Use Types Packs/Day Years Used Date Smoking Tobacco: Never Smokeless Tobacco: Never Alcohol Use Standard Drinks/Week Comments Yes 2 (1 standard drink = 0.6 oz pur e alcohol) PHQ-2 Answer Date Recorded PHQ-2 Score 0 03/27/2019 Sexually Active Control Partners Comments Not Currently Comments No Sex and Gender Information Value Date Recorded Sex Assigned at Female 02/26/2023 10:35 AM CDT Legal Sex Female 10:22 AM CDT Gender Identity Female 02/26/2023 10:35 AM CDT Sexual Orientation Not on file COVID-19 Exposure Response Date Recorded In the last month, have you been in contact with someone who was confirmed or suspected to have Coronavirus / COVID-19? No / Unsure 01/11/2020 11:11 AM CDT documented as of this encounter Miscellaneous Notes * Telephone Encounter - Viviane Chisholm - 01/11/2020 11:28 AM CDT PT RESCHEDULED 02/28 FOLLOW UP TO FOLLOWING Wednesday 03/07 DUE TO FOLLOW UP APPT W/ DR POWER SAME DAY documented in this encounter Plan of Treatment Upcoming Encounters Date Type Department Care Team (Late st Contact Info) Description 12/28/2024 9:30 AM CDT Clinical Support [facility] [address] [phone] 12/28/2024 9:45 AM CDT Office Visit [facility] [address] [phone] Reymundo Arnold DO [address] [place] [phone] documented as of this encounter Visit Diagnoses Not on filedocumented in this encounter Additional Health Concerns Assessment Noted Time PHQ-9 Depression Total Score: 0 11/30/19 20 10:01 AM CDT documented as of this encounter Care Teams Board Worker Relationship Specialty Start Date End Date Zoe Phan APN [address] [place] [address] PCP - General Advanced Practice Nurse 03/23/19 1 Provider, None [place] PCP - General 12/13/20 Martin Power MD [address] [address] 1st Assignment Desk Assistant Obstetrics & Gynecology 03/23/19 Reymundo Arnold DO [address] [place] [phone] Consulting Physician Oncology 09/26/20 Gregor Canela MD [address] [address] Gastroenterology 11/14/21 Lizbeth Andres MD [address] [place] [address] General Surgery 11/14/21 documented as of this encounter
--- OUTSIDE RECORDS SUMMARY | 2024-12-24 03:47 | XMS_ITS | Encounter Summary ---
Author Organization [facility] Address [address] [facility] [address] [place] [address] Care Team Providers Care Exceptional Student Education Aide Name Role Phone Macho Moody MD Primary Care Provider + Encounter Details Date Type Department Care Team (Late st Contact Info) Description 04/10/2019 Lab Requisition [facility]ology [facility] [address] [place] [address] Pop Bauer MD [address] [place], [place] [phone] Social History Tobacco Use Types Packs/Day Years Used Date Smoking Tobacco: Never Smokeless Tobacco: Never Alcohol Use Standard Drinks/Week Comments Never 0 (1 standard drink = 0.6 oz pur e alcohol) AUDIT-C Answer Date Recorded Frequency of Alcohol Consumption Never 02/23/2019 Average Number of Drinks Not on file 019 Frequency of Binge Drinking Never 02/12 Comments No Sex and Gender Information Value Date Recorded Sex Assigned at Not on file Legal Sex Female 9:59 AM CDT Gender Identity Not on file Sexual Orientation Not on file documented as of this encounter Functional Status * Is person deaf or have serious hearing difficulty? Answer Date of Assessment Author No 02/27/2019 6:15 PM CDT Meenakshi Lewis RN * Is person blind or have serious difficulty seeing? Answer Date of Assessment Author No 02/27/2019 6:15 PM CHRISST Meenakshi Lewis RN * Does person have serious difficulty walking/climbing stairs? Answer Date of Assessment Author No 02/27/2019 6:15 PM CDT Meenakshi Lewis RN * Does person have difficulty dressing/bathing? Answer Date of Assessment Author No 02/27/2019 6:15 PM CDT Meenakshi Lewis RN * Does person have difficulty doing errands alone? Answer Date of Assessment Author No 02/27/2019 6:15 PM CDT Meenakshi Lewis RN documented as of this encounter Mental Status * Does person have difficulty concentrating/remembering/making decisions? Answer Entry Date Author No 02/27/2019 6:15 PM CDT Meenakshi Lewis RN documented in this encounter Plan of Treatment Not on file documented as of this encounter Procedures Procedure Name Priority Date/Time Associated Diagnosis Comments SLIDE PREP HISTOLOGY Routine 04/10/2019 1:10 PM CDT documented in this encounter Results * SLIDE PREP HISTOLOGY (04/10/2019 1:10 PM CDT) Client Specimen ID # [id number] 04/16/2019 11:07 AM CDT [facility] Number of Blocks Received 0 04/16/2019 11:07 AM CDT [facility] Number of Slides 1 04/16/2019 11:07 AM CDT [facility] Number of Control Slides 1 04/16/2019 11:07 AM CDT [facility] Pathology/Cytolo gy SPECIMEN FROM UTERINE CERVIX OBTAINED BY HYSTERECTOMY / Unknown 04/10/2019 1:10 PM CDT 04/10/2019 3:34 PM CDT Pop Bauer MD LAB - PATHOLOGY/CYTOLOGY ORDER VIC Final Result [facility] [address] [place] [address], [facility] [phone] documented in this encounter Visit Diagnoses Not on filedocumented in this encounter Care Teams Exceptional Student Education Aide Relationship Specialty Start Date End Date Macho Moody MD [address] [address] PCP - General 02/13/19 documented as of this encounter
--- OUTSIDE RECORDS SUMMARY | 2024-12-24 03:47 | XMS_ITS | Encounter Summary ---
Author Organization [facility] Address [address] [place] [address] Phone Care Team Providers Care Power Lineworker Name Role Phone Zoe Phan APN Primary Care Provider Martin Mann MD Unavailable Reymundo Arnold DO Unavailable [phone] Provider, None Primary Care Provider Unavailabl e Gregor Canela MD Unavailable [phone] Lizbeth Andres MD Unavailable [phone] Encounter Details Date Type Department Care Team (Late st Contact Info) Description 05/26/2020 Telephone [facility] [address] [place] [address] Reymundo Arnold, DO [address] [place] [address] Social History Tobacco Use Types [...] CDT Clinical Support [facility] [address] [place] [phone] 12/28/2024 9:45 AM CDT Office Visit [facility] [address] [place] [phone] Reymundo Arnold DO [address] [place] [address] documented as of this encounter Visit Diagnoses Not on filedocumented in this encounter Additional Health Concerns Assessment Noted Time PHQ-9 Depression Total Score: 0 03/07/20 9:48 AM CDT documented as of this encounter Care Teams Power Lineworker Relationship Specialty Start Date End Date Zoe Phan APN [address] [place] [address] PCP - General Advanced Practice Nurse 03/23/19 1 Provider, None [place] PCP - General 12/13/20 Martin Mann MD [address] [facility] [address] [place] [address] 1st Business Continuity Specialist Obstetrics & Gynecology 03/23/19 Reymundo Arnold DO [address] [place] [phone] Consulting Physician Oncology 09/26/20 Gregor Canela MD [address] [address] Gastroenterology 11/14/21 Lizbeth Andres MD [address] [place] [address] General Surgery 11/14/21 documented as of this encounter
--- OUTSIDE RECORDS SUMMARY | 2024-12-24 03:47 | XMS_ITS ---
Author Organization [facility] Address [address] [facility] [place] [address] Care Team Providers Care Meeting Planner Name Role Phone Macho Moody MD Primary Care Provider + Active Problems Problem Noted Date Diagnosed Date [...] endocrine therapy Osteopenia of lumbar spine 01/10/2018 Current Treatment and Therapy Plans No current plan information found. Past Treatment and Therapy Plans No past plan information found. Lifetime Dose Tracking * Chemical Lifetime Dose Automatic Entry Manual Entr y Dose Length Product 315 mGy-cm 315 mGy-cm 0 mGy-cm
--- OUTSIDE RECORDS SUMMARY | 2024-12-24 03:47 | XMS_ITS | Encounter Summary ---
Author Organization [facility] Address [address] [place] [address] Phone Care Team Providers Care Video Game Creator Name Role Phone Martin Mann MD Unavailable Reymundo Arnold DO Unavailable [phone] Provider, None Primary Care Provider UnavailGregor Gonzáles MD Unavailable [phone] Lizbeth Andres MD Unavailable [phone] Encounter Details Date Type Department Care Team (Late st Contact Info) Description 01/02/2021 Telephone [facility] [address] [place] [address] Reymundo Arnold, DO [address] [place] [address] Social History Tobacco Use Types Packs/Day Years Used Date Smoking Tobacco: Never Smokeless Tobacco: Never Alcohol Use Standard Drinks/Week Comments Yes 2 (1 standard drink = 0.6 oz pur e alcohol) PHQ-2 Answer Date Recorded Total Score - Questions 1-9 0 0 02/2021 Sexually Active Control Partners Comments Not Currently [...] have Coronavirus / COVID-19? No / Unsure 12/20/2020 11:06 AM CDT documented as of this encounter Miscellaneous Notes * Telephone Encounter - Reymundo Arnold DO - 01/02/2021 12:25 PM CDT Ok, will repeat CT 3 months from last. When do I fu with patient? * Telephone Encounter - Esther Grey - 01/02/2021 9:49 AM CDT Spoke with Bonnie at [facility] and she mentioned that for Ms. Francisco that you spoke with Dr. Carvalho about holding off on this patient's biopsy for at least 3 to 6 months. I just wanted to confirm this before we close out her referral. Please advise. Bonnie-[facility] ext [phone] documented in this encounter Plan of Treatment Upcoming Encounters Date Type Department Care Team (Late st Contact Info) Description 12/28/2024 9:30 AM CDT Clinical Support [facility] [address] [phone] 12/28/2024 9:45 AM CDT Office Visit [facility] [address] [phone] Reymundo Arnold DO [address] [place] [phone] documented as of this encounter Visit Diagnoses Not on filedocumented in this encounter Additional Health Concerns Assessment Noted Time PHQ-9 Depression Total Score: 0 12/21/19 21 11:29 AM CDT documented as of this encounter Care Teams Video Game Creator Relationship Specialty Start Date End Date Provider, None [place] PCP - General 12/13/20 Martin Mann MD [address] [facility] [address] [place] [address] 1st Train Driver Obstetrics & Gynecology 03/23/19 Reymundo Arnold DO [address] [place] [phone] Consulting Physician Oncology 09/26/20 Gregor Canela MD [address] [address] Gastroenterology 11/14/21 Lizbeth Andres MD [address] [place] [address] General Surgery 11/14/21 documented as of this encounter
--- OUTSIDE RECORDS SUMMARY | 2024-12-24 03:48 | XMS_ITS | Encounter Summary ---
Author Organization [facility] Address [address] [place] [address] Phone Care Team Providers Care Senior Ui Ux Designer Name Role Phone Martin Mann MD Unavailable Reymundo Arnold DO Unavailable [phone] Provider, None Primary Care Provider UnavailGregor Gonzáles MD Unavailable [phone] Lizbteh Andres MD Unavailable [phone] Reason for Visit * Reason Comments Medication Refill Encounter Details Date Type Department Care Team (Late st Contact Info) Description 07/24/2022 Refill [facility] [place] [address] [place] [address] Reymundo Arnold, DO [address] [place] [address] Medication Refill Social History Tobacco [...] suspected to have Coronavirus/COVID-19? No / Unsure 07/13/2022 11:30 AM NEW HOME SALES CONSULTANT documented as of this encounter Miscellaneous Notes * Telephone Encounter - Anika Wilson RN - 07/24/2022 9:46 AM CST Refill request from pharmacy. Please fill if appropriate HOME SALES CONSULTANT documented in this encounter Plan of Treatment Upcoming Encounters Date Type Department Care Team (Late st Contact Info) Description 12/28/2024 9:30 AM CDT Clinical Support [facility] [address] [phone] 12/28/2024 9:45 AM CDT Office Visit [facility] [address] [phone] Reymundo Arnold DO [address] [place] [phone] documented as of this encounter Visit Diagnoses Not on filedocumented in this encounter Additional Health Concerns Assessment Noted Time PHQ-9 Depression Total Score: 0 03/28/20 21 10:03 AM CDT documented as of this encounter Care Teams Senior Ui Ux Designer Relationship Specialty Start Date End Date Provider, None [place] PCP - General 12/13/20 Martin Mann MD [address] [facility] [address] [place] [address] 1st Stock Grader Obstetrics & Gynecology 03/23/19 Reymundo Arnold DO [address] [place] [phone] Consulting Physician Oncology 09/26/20 Gregor Canela MD [address] [address] Gastroenterology 11/14/21 Lizbeth Andres MD [address] [place] [address] General Surgery 11/14/21 documented as of this encounter
--- OUTSIDE RECORDS SUMMARY | 2024-12-24 03:48 | XMS_ITS ---
Author Organization [facility] Address [address], [facility] [address] [place] [address] Phone Care Team Providers Care Professional Model Name Role Phone Martin Mann MD Unavailable Reymundo Arnold DO Unavailable [phone] Provider, None Primary Care Provider UnavailGregor Gonzáles MD Unavailable [phone] Lizbeth Andres MD Unavailable [phone] Active Problems Problem Noted Date Diagnosed Date Diarrhea 12/08/2024 Iron deficiency anemia 08/17/2024 Elevated blood pressure reading 06/29/2024 SBO (small bowel obstruction) 04/30/2024 Anemia 01/03/2023 Macrocytic 06/15/2022 Malignant neoplasm of overla pping sites of right breast in female, estrogen receptor positive 11/22/2021 Lung nodules 06/27/2021 Chemotherapy-induced neutropenia 08/24/2019 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 Osteopenia of lumbar spine 01/10/2018 Current Treatment and Therapy Plans [facility]: Sacituzumab govitecan-hziy - Breast* Plan Start Date:04/24/2024 Plan Provider:Reymundo Arnold, Linked Problems Malignant neoplasm of overla pping sites of right breast in female, estrogen receptor positive (HCC)Carcinosarcoma of body of uterus (HCC) Treatment Medications Current Day (Day 8 , Cycle 12 - Planned for 12/29/2024) Next Day (Day 9, Cycle 12 - Planned for 12/30/2024) sacituzumab govitecan-hziy (TRODELVY) infusion sacituzumab govitecan-HZIY (TRODELVY) 550 mg in sodium chloride 0.9 % 250 mL chemo infusion No medications scheduled. [facility]: Support Iron Dextran* Plan Start Date:08/19/2024 Plan Provider:Sarah Rao APRN, CNP Linked Problems Carcinosarcoma of body of ut erus (HCC)Iron deficiency anemia, unspecified iron deficiency anemia type Treatment Medications No medications scheduled. Other Current Plans [facility]: SandoSTATIN LAR - 28 Day Cycle - Malignant Bowel Obstruction* Plan Start Date:05/25/2024 Plan Provider:Reymundo Arnold DO Linked Problems SBO (small bowel obstruction ) (HCC) Treatment Medications No medications scheduled. SUPPORT - B12 Q 28 DAYS - [facility]* Plan Start Date:01/03/2023 Plan Provider:Reymundo Arnold DO Linked Problems Anemia, unspecified type Treatment Medications Current Day (Day 1 , Cycle 4 - Planned for 11/24/2024) Next Day (Day 1, Cycle 5 - Planned for 12/22/2024) No medications scheduled. No medications schedul ed. No medications scheduled. Past Treatment and Therapy Plans ONCOLOGY SECONDARY SUPPORTIVE CARE Plan Name Start Date Discontinue Date Treatment Medications Discontinue Reason Plan Provider Cycles [facility]: Support Injectafer 5 08/18/2024 No medications scheduled. Plan Clean Up Sarah Rao APRN, DELIO Treatment not started SUPPORT - HYDRATION WITHOUT ADDITIVES - [facility] 3 08/17/2024 No medications scheduled. Therapy Complete Reymundo Arnold, DO 12 of 12 cycles started SUPPORT - HYDRATION NO ADDITIVES - [facility] 09/15/2019 07/19/2020 No medications scheduled. Plan Clean Up Reymundo Arnold, DO 1 of 1 cycle started ONCOLOGY TREATMENT Plan Name Start Date Discontinue Date Treatment Medications Discontinue Reason Plan Provider Cycles [facility]: ENHERTU (FAM-TRASTUZUM AB DERUXTECAN-NXK I) - Breast 3 10/08/2023 fam-trastuzuma b deruxtecan-nxk i (ENHERTU) infusion Plan Clean Up Clayton, Reymundo D, DO 7 of 7 cycles started BREAST - FULVESTRANT - [facility] 2 01/29/2023 No medications scheduled. Plan Clean Up Clayton, Reymundo D, DO 15 (16 of 18 cycles) started BREAST - IBRANCE/FULVES TRANT - [facility] 2 11/23/2021 No medications scheduled. Therapy Complete Clayton, Reymundo D, DO Treatment not started CARBOPLATIN/TA XOL - [facility] 9 10/17/2021 CARBOplatin (PARAPLATIN) chemo infusion (by AUC)PACLitaxel (TAXOL) chemo infusion Plan Clean Up Clayton, Reymundo D, DO 6 of 6 cycles started ORAL CHEMO TREATMENT Plan Name Start Date Discontinue Date Treatment Medications Discontinue Reason Plan Provider Cycles BREAST - ORAL CAPECITABINE - [facility] 4 05/25/2024 capecitabine (XELODA) Plan Clean Up Clayton, Reymundo D, DO Treatment not started BREAST - PALBOCICLIB (IBRANCE) - [facility] 2 01/29/2023 palbociclib (IBRANCE) Plan Clean Up Clayton, Reymundo D, DO 0 (1 of 7 cycles) started Lifetime Dose Tracking * Chemical Lifetime Dose Automatic Entry Manual Entr y Carboplatin 1,777.645 mg/m2 (2,9 84.125 mg) 1,777.645 mg/m2 (2,984.125 mg) 0 mg/m2 (0 mg)
--- OUTSIDE RECORDS SUMMARY | 2024-12-24 03:48 | XMS_ITS | Clinical Summary ---
Author Organization [facility] Address [address], [facility] [address] [place] [address] Phone Care Team Providers Care Sed Special Education Teacher Name Role Phone Martin Mann MD Unavailable Reymundo Arnold DO Unavailable [phone] Provider, None Primary Care Provider Unavailmarylu e Gregor Canela MD Unavailable [phone] Lizbeth Andres MD Unavailable [phone] Allergies Active Allergy Reactions Criticality Noted Date Comments Morphine Nausea 02/24/2019 Can take with zofran Sulfa Antibiotics Photosensitivity 03/27/2019 Medications CALCIUM CITRATE-VITAMIN D PO Take 600 mg by mouth daily. Active acetaminophen (TYLENOL) 500 MG Tablet Take 1,000 mg by mouth every 4 hours as needed for Moderate or more severe pain. Active lidocaine-prilo aryan 2.5-2.5 % Cream Apply to port site, 1-2 hours prior to chemo infusion. 30 g 2 4 Active oxybutynin (DITROPAN-XL) 5 MG TABLET SR 24 HR Take 5 mg by mouth daily. 4 Active ibuprofen (MOTRIN) 600 MG Tablet Take 600 mg by mouth every 6 hours as needed. 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 Take two tablets by mouth at the onset of diarrhea, then one tablet with every episode of diarrhea thereafter. Max 8 tablets per day 20 Tablet 4 Active octreotide ACETATE (SandoSTATIN LAR) 20 MG Kit 20 mg by Intramuscular route every 28 days. Active Magnesium 400 MG TabletIndicatio ns:Carcinosarco ma of body of uterus (HCC) Take 400 mg by mouth daily. 30 Tablet 3 5 Active Additional Information Patient not taking.Reported on 12/21/2024 magnesium oxide (MAG-OX) 400 (240 Mg) MG Tablet Take 400 mg by mouth daily. 5 Active amoxicillin-cla vulanate (AUGMENTIN) 875-125 MG Tablet TAKE 1 TABLET BY MOUTH TWICE DAILY UNTIL ALL TAKEN 5 Active ciprofloxacin (CIPRO) 500 MG Tablet Take 500 mg by mouth 2 times daily. 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 Osteopenia of lumbar spine 01/10/2018 Encounters Date Type Department Care Team Description 12/21/2024 9:30 AM CDT Office Visit [facility] [address] [phone] Earlene Perez APRN, DELIO Malignant neoplasm of overlapping sites of right breast in female, estrogen receptor positive (HCC) (Primary Dx); Carcinosarcoma of body of uterus (HCC); Anemia, unspecified type; Diarrhea, unspecified type; SBO (small bowel obstruction) (HCC); Encounter for immunotherapy 12/21/2024 9:15 AM CDT Clinical Support [facility] [address] [phone] Carcinosarcoma of body of uterus (HCC) (Primary Dx); Malignant neoplasm of overlapping sites of right breast in female, estrogen receptor positive (HCC); SBO (small bowel obstruction) (HCC) 12/21/2024 Travel 12/09/2024 12:15 PM CDT Clinical Support [facility] [address] [phone] Nurse, Cc Almas Malignant neoplasm of overlapping sites of right breast in female, estrogen receptor positive (HCC) (Primary Dx); Carcinosarcoma of body of uterus (HCC) 12/08/2024 8:45 AM CDT Office Visit [facility] [address] [phone] Reymundo Arnold, Malignant neoplasm of overlapping sites of right breast in female, estrogen receptor positive (HCC) (Primary Dx); Carcinosarcoma of body of uterus (HCC) 12/08/2024 8:30 AM CDT Clinical Support [facility] [address] [phone] Carcinosarcoma of body of uterus (HCC) (Primary Dx); Anemia, unspecified type; Malignant neoplasm of overlapping sites of right breast in female, estrogen receptor positive (HCC); Diarrhea, unspecified type 12/08/2024 Travel 11/30/2024 8:45 AM CDT Office Visit [facility] [address] [phone] Earlene Perez SUBSTATION SUPERINTENDENT, MAKEUP EDITOR Malignant neoplasm of overlapping sites of right breast in female, estrogen receptor positive (HCC) (Primary Dx); Anemia, unspecified type; Carcinosarcoma of body of uterus (HCC); Diarrhea, unspecified type 11/30/2024 8:30 AM CDT Clinical Support [facility] [address] [phone] Carcinosarcoma of body of uterus (HCC) (Primary Dx); Malignant neoplasm of overlapping sites of right breast in female, estrogen receptor positive (HCC) 11/30/2024 Travel 11/23/2024 9:00 AM CDT Clinical Support [facility] [address] [phone] Nurse, Cc Ofallon Anemia, unspecified type (Primary Dx); SBO (small bowel obstruction) (HCC) 11/23/2024 Travel 11/18/2024 9:30 AM CDT Clinical Support [facility] [address] [phone] Malignant neoplasm of overlapping sites of right breast in female, estrogen receptor positive (HCC) (Primary Dx); Carcinosarcoma of body of uterus (HCC) 11/16/2024 9:00 AM CDT Office Visit [facility] [address] [phone] Sarah Rao APRN, MAKEUP EDITOR Malignant neoplasm of overlapping sites of right breast in female, estrogen receptor positive (HCC) (Primary Dx); Encounter for immunotherapy; Diarrhea, unspecified type; Urinary urgency; Dehydration 11/16/2024 8:45 AM CDT Clinical Support [facility] [address] [phone] Nurse, Cc Ofallon Carcinosarcoma of body of uterus (HCC) (Primary Dx); Malignant neoplasm of overlapping sites of right breast in female, estrogen receptor positive (HCC) 11/16/2024 Travel 11/11/2024 9:00 AM CDT Clinical Support [facility] [address] [phone] Nurse, Cc Ofallon Malignant neoplasm of overlapping sites of right breast in female, estrogen receptor positive (HCC) (Primary Dx); Carcinosarcoma of body of uterus (HCC) 11/09/2024 11:00 AM CDT Office Visit [facility] [address] [phone] Yashira Desai, SUBSTATION SUPERINTENDENT, MAKEUP EDITOR Malignant neoplasm of overlapping sites of right breast in female, estrogen receptor positive (HCC) (Primary Dx) 11/09/2024 10:45 AM CDT Clinical Support [facility] [address] [phone] Carcinosarcoma of body of uterus (HCC) (Primary Dx); Malignant neoplasm of overlapping sites of right breast in female, estrogen receptor positive (HCC) 11/09/2024 Travel 11/05/2024 11:30 AM CDT Ancillary Procedure [facility] [address] [phone] Sarah Rao APRN, MAKEUP EDITOR Malignant neoplasm of overlapping sites of right breast in female, estrogen receptor positive (HCC) 11/05/2024 Travel 10/27/2024 12:30 PM CDT Clinical Support [facility] [address] [phone] Nurse, Cc Ofallon Malignant neoplasm of overlapping sites of right breast in female, estrogen receptor positive (HCC) (Primary Dx); Carcinosarcoma of body of uterus (HCC) 10/26/2024 9:30 AM CDT Office Visit [facility] [address] [phone] Reymundo Arnold, Malignant neoplasm of overlapping sites of right breast in female, estrogen receptor positive (HCC) (Primary Dx) 10/26/2024 9:15 AM CDT Clinical Support [facility] [address] [phone] Carcinosarcoma of body of uterus (HCC) (Primary Dx); Malignant neoplasm of overlapping sites of right breast in female, estrogen receptor positive (HCC); SBO (small bowel obstruction) (HCC) 10/26/2024 Travel 10/21/2024 Results Follow-Up [facility] [address] [place] [phone] Reymundo Arnold, DO URINALYSIS WITH MICROSCOPIC, C/S IF INDICATED OH, CULTURE, URINE 10/19/2024 9:30 AM CDT Office Visit [facility] [address] [phone] Sarah Rao APRN, MAKEUP EDITOR Malignant neoplasm of overlapping sites of right breast in female, estrogen receptor positive (HCC) (Primary Dx); Encounter for immunotherapy; Acute cystitis without hematuria 10/19/2024 9:15 AM CDT Clinical Support [facility] [address] [phone] Malignant neoplasm of overlapping sites of right breast in female, estrogen receptor positive (HCC) (Primary Dx); Malignant neoplasm of female breast, unspecified estrogen receptor status, unspecified laterality, unspecified site of breast (HCC); Acute cystitis without hematuria; Carcinosarcoma of body of uterus (HCC) 10/19/2024 Travel 10/06/2024 9:30 AM CDT Clinical Support [facility] [address] [phone] [facility], [facility] Malignant neoplasm of overlapping sites of right breast in female, estrogen receptor positive (HCC) (Primary Dx); Carcinosarcoma of body of uterus (HCC) 10/05/2024 9:30 AM CDT Office Visit [facility] [address] [phone] Reymundo Arnold, DO Malignant neoplasm of female breast, unspecified estrogen receptor status, unspecified laterality, unspecified site of breast (HCC) (Primary Dx) 10/05/2024 9:15 AM CDT Clinical Support [facility] [address] [phone] Malignant neoplasm of overlapping sites of right breast in female, estrogen receptor positive (HCC) (Primary Dx); Malignant neoplasm of female breast, unspecified estrogen receptor status, unspecified laterality, unspecified site of breast (HCC); Carcinosarcoma of body of uterus (HCC); Iron deficiency anemia, unspecified iron deficiency anemia type; Diarrhea, unspecified type 10/05/2024 Travel 09/28/2024 8:45 AM CDT Office Visit [facility] [address] [phone] Earlene Perez APRN, DELIO Malignant neoplasm of female breast, unspecified estrogen receptor status, unspecified laterality, unspecified site of breast (HCC) (Primary Dx); Carcinosarcoma of body of uterus (HCC); Iron deficiency anemia, unspecified iron deficiency anemia type; Diarrhea, unspecified type 09/28/2024 8:30 AM CDT Clinical Support [facility] [address] [phone] Carcinosarcoma of body of uterus (HCC) (Primary Dx); Malignant neoplasm of overlapping sites of right breast in female, estrogen receptor positive (HCC); SBO (small bowel obstruction) (HCC) 09/28/2024 Travel from Last 3 Months Immunizations Immunization Administration Dates Next Due Covid-19, Mrna, Lnp-s, Pf, 3 0 Mcg/0.3 Ml Dose ([employer]) 05/16/2021,10/05/2020,09/13/2020 Influenza Vaccine, Quadrivalent, PF 06/18/2023,1 07/18/2021 Influenza,Split Virus,Trivalent,Injectable,PF 05/02/2024 Pneumococcal conjugate PCV20 , polysaccharide [id number] conjugate, adjuvant, PF 06/30/2024 RSV, Recombinant, Protein Hull bunit Rsvpref, Adjuvant Recon (Arexvy) 06/18/2023 Family History Medical History Relation Name Comments Cancer Maternal Grandfather Lung Cancer Maternal Grandfather Cancer Maternal Grandmother Colon Cancer Maternal Grandmother Arthritis Mother Diabetes Mother Relation Name Status Comments Brother lila Alive Father Alive Maternal Grandfather Maternal Grandmother Mother Alive Sister 1 ofelia Alive Sister 2 jaren Alive Social History Tobacco Use Types Packs/Day Years Used Date Smoking Tobacco: Never Smokeless Tobacco: Never Tobacco Cessation:Counseling Given: Not Answered Alcohol Use Standard Drinks/Week Comments Yes 2 [...] Sign Reading Time Taken Comments Blood Pressure 124/72 12/21/2024 9:47 AM CDT Pulse 74 12/21/2024 9:47 AM CDT Temperature 36.8 C (98.2 F) 12/21/2024 9:47 AM CDT Respiratory Rate 18 12/21/2024 9:47 AM CDT Oxygen Saturation 98% 12/21/2024 9:47 AM CDT Inhaled Oxygen Concentration - - Weight 61.2 kg (134 lb 14.4 oz) 12/21/2024 9:47 AM CDT Height 152.4 cm (5') 12/21/2024 9:47 AM CDT Body Mass Index 26.35 12/21/2024 9:47 AM CDT Plan of Treatment Upcoming Encounters Date Type Department Care Team (Late st Contact Info) Description 12/28/2024 9:30 AM CDT Clinical Support [facility] [address] [phone] 12/28/2024 9:45 AM CDT Office Visit [facility] [address] [phone] Reymundo Arnold, DO [address] [place] [phone] Health Maintenance Due Date Last Done Comments Hepatitis C Virus (HCV) Screening 1960 Mammogram Unilateral 1960 TdaP Immunization 1960 Zoster Immunization (1 of 2) 1979 Cologuard 2005 Immunochemical Fecal Occult Blood 2005 SARS-COV-2 Immunization (8 - Pfizer risk season) 2024 06/30/2024, 06/18/2023, 05/18/2022, Additional history exists Colonoscopy 11/11/2031 11/10/2021, 09/27/2021 Colorectal Cancer Screening 11/11/2031 Respiratory Syncytial Virus (RSV) Immunization (Adult) Completed 06/18/2023 Influenza Immunization Completed , 06/18/2023, 05/18/2022 Pneumococcal Immunization (50+ years) Completed 06/30/2024 Pneumococcal Immunization Combined Discontinued 06/30/2024 Hepatitis B Immunization Aged Out No longer eligible based on patient's age to complete this topic Human Papillomavirus (HPV) Immunization Aged Out No longer eligible based on patient's age to complete this topic Meningococcal Immunization (ACWY) Aged Out No longer eligible based on patient's age to complete this topic Rotavirus Immunization Aged Out No lo nger eligible based on patient's age to complete this topic Procedures Procedure Name Priority Date/Time Associated Diagnosis Comments CBC WITH AUTO DIFF OH Routine 12/21/2024 9:14 AM CDT Malignant neoplasm of overlapping sites of right breast in female, estrogen receptor positive (HCC) Carcinosarcoma of body of uterus (HCC) SBO (small bowel obstruction) (HCC) CMP (COMPREHENSIVE METABOLIC PANEL) Routine 12/21/2024 9:14 AM CDT Malignant neoplasm of overlapping sites of right breast in female, estrogen receptor positive (HCC) Carcinosarcoma of body of uterus (HCC) SBO (small bowel obstruction) (HCC) CARCINOEMBRYONIC ANTIGEN (CEA) Routine 12/21/2024 9:14 AM CDT Malignant neoplasm of overlapping sites of right breast in female, estrogen receptor positive (HCC) Carcinosarcoma of body of uterus (HCC) SBO (small bowel obstruction) (HCC) CANCER ANTIGEN (CA) 15-3 Routine 025 9:14 AM CDT Malignant neoplasm of overlapping sites of right breast in female, estrogen receptor positive (HCC) Carcinosarcoma of body of uterus (HCC) SBO (small bowel obstruction) (HCC) CBC WITH AUTO DIFF OH Routine 12/08/2024 8:44 AM CDT Malignant neoplasm of overlapping sites of right breast in female, estrogen receptor positive (HCC) CMP (COMPREHENSIVE METABOLIC PANEL) Routine 12/08/2024 8:44 AM CDT Anemia, unspecified type Malignant neoplasm of overlapping sites of right breast in female, estrogen receptor positive (HCC) Carcinosarcoma of body of uterus (HCC) Diarrhea, unspecified type CBC WITH AUTO DIFF OH Routine 11/30/2024 8:29 AM CDT Malignant neoplasm of overlapping sites of right breast in female, estrogen receptor positive (HCC) Carcinosarcoma of body of uterus (HCC) CANCER ANTIGEN (CA) 15-3 Routine 025 8:29 AM CDT Malignant neoplasm of overlapping sites of right breast in female, estrogen receptor positive (HCC) CARCINOEMBRYONIC ANTIGEN (CEA) Routine 11/30/2024 8:29 AM CDT Malignant neoplasm of overlapping sites of right breast in female, estrogen receptor positive (HCC) MAGNESIUM (MG) Routine 11/30/2024 8:29 AM CDT Malignant neoplasm of overlapping sites of right breast in female, estrogen receptor positive (HCC) CMP (COMPREHENSIVE METABOLIC PANEL) Routine 11/30/2024 8:29 AM CDT Malignant neoplasm of overlapping sites of right breast in female, estrogen receptor positive (HCC) CBC WITH AUTO DIFF OH Routine 11/16/2024 8:45 AM CDT Malignant neoplasm of overlapping sites of right breast in female, estrogen receptor positive (HCC) CMP (COMPREHENSIVE METABOLIC PANEL) Routine 11/16/2024 8:45 AM CDT Malignant neoplasm of overlapping sites of right breast in female, estrogen receptor positive (HCC) COMPLETE BLOOD COUNT (CBC) WITH DIFF Routine 11/09/2024 10:51 AM CDT Malignant neoplasm of overlapping sites of right breast in female, estrogen receptor positive (HCC) CMP (COMPREHENSIVE METABOLIC PANEL) Routine 11/09/2024 10:51 AM CDT Malignant neoplasm of overlapping sites of right breast in female, estrogen receptor positive (HCC) CANCER ANTIGEN (CA) 15-3 Routine 025 10:51 AM CDT Malignant neoplasm of overlapping sites of right breast in female, estrogen receptor positive (HCC) CARCINOEMBRYONIC ANTIGEN (CEA) Routine 11/09/2024 10:51 AM CDT Malignant neoplasm of overlapping sites of right breast in female, estrogen receptor positive (HCC) CT CHEST ABDOMEN AND PELVIS W CONTRAST Routine 11/05/2024 11:39 AM CDT Malignant neoplasm of overlapping sites of right breast in female, estrogen receptor positive (HCC) URINALYSIS WITH MICROSCOPIC OH Routine 10/26/2024 10:17 AM CDT Malignant neoplasm of overlapping sites of right breast in female, estrogen receptor positive (HCC) CBC WITH AUTO DIFF OH Routine 10/26/2024 9:20 AM CDT Malignant neoplasm of overlapping sites of right breast in female, estrogen receptor positive (HCC) CMP (COMPREHENSIVE METABOLIC PANEL) Routine 10/26/2024 9:20 AM CDT Malignant neoplasm of overlapping sites of right breast in female, estrogen receptor positive (HCC) CARCINOEMBRYONIC ANTIGEN (CEA) Routine 10/26/2024 9:20 AM CDT Malignant neoplasm of overlapping sites of right breast in female, estrogen receptor positive (HCC) CANCER ANTIGEN (CA) 15-3 Routine 025 9:20 AM CDT Malignant neoplasm of overlapping sites of right breast in female, estrogen receptor positive (HCC) URINALYSIS WITH MICROSCOPIC, C/S IF INDICATED OH Routine 10/19/2024 10:07 AM CDT Acute cystitis without hematuria Malignant neoplasm of overlapping sites of right breast in female, estrogen receptor positive (HCC) CULTURE, URINE Routine 10/19/2024 10:07 AM CDT Malignant neoplasm of overlapping sites of right breast in female, estrogen receptor positive (HCC) CBC WITH AUTO DIFF OH Routine 10/19/2024 9:16 AM CDT Malignant neoplasm of overlapping sites of right breast in female, estrogen receptor positive (HCC) CMP (COMPREHENSIVE METABOLIC PANEL) Routine 10/19/2024 9:16 AM CDT Malignant neoplasm of female breast, unspecified estrogen receptor status, unspecified laterality, unspecified site of breast (HCC) Malignant neoplasm of overlapping sites of right breast in female, estrogen receptor positive (HCC) CARCINOEMBRYONIC ANTIGEN (CEA) Routine 10/19/2024 9:16 AM CDT Malignant neoplasm of female breast, unspecified estrogen receptor status, unspecified laterality, unspecified site of breast (HCC) Malignant neoplasm of overlapping sites of right breast in female, estrogen receptor positive (HCC) CANCER ANTIGEN (CA) 15-3 Routine 025 9:16 AM CDT Malignant neoplasm of female breast, unspecified estrogen receptor status, unspecified laterality, unspecified site of breast (HCC) Malignant neoplasm of overlapping sites of right breast in female, estrogen receptor positive (HCC) CBC WITH AUTO DIFF OH Routine 10/05/2024 9:23 AM CDT Carcinosarcoma of body of uterus (HCC) CMP (COMPREHENSIVE METABOLIC PANEL) Routine 10/05/2024 9:23 AM CDT Malignant neoplasm of female breast, unspecified estrogen receptor status, unspecified laterality, unspecified site of breast (HCC) Carcinosarcoma of body of uterus (HCC) Iron deficiency anemia, unspecified iron deficiency anemia type Diarrhea, unspecified type LACTATE DEHYDROGENASE (LD) Routine 10/05/2024 9:23 AM CDT Malignant neoplasm of female breast, unspecified estrogen receptor status, unspecified laterality, unspecified site of breast (HCC) Carcinosarcoma of body of uterus (HCC) Iron deficiency anemia, unspecified iron deficiency anemia type Diarrhea, unspecified type MAGNESIUM (MG) Routine 10/05/2024 9:23 AM CDT Malignant neoplasm of female breast, unspecified estrogen receptor status, unspecified laterality, unspecified site of breast (HCC) Carcinosarcoma of body of uterus (HCC) Iron deficiency anemia, unspecified iron deficiency anemia type Diarrhea, unspecified type CARCINOEMBRYONIC ANTIGEN (CEA) Routine 10/05/2024 9:23 AM CDT Malignant neoplasm of female breast, unspecified estrogen receptor status, unspecified laterality, unspecified site of breast (HCC) Carcinosarcoma of body of uterus (HCC) Iron deficiency anemia, unspecified iron deficiency anemia type Diarrhea, unspecified type CANCER ANTIGEN (CA) 15-3 Routine 9:23 AM CDT Malignant neoplasm of female breast, unspecified estrogen receptor status, unspecified laterality, unspecified site of breast (HCC) Carcinosarcoma of body of uterus (HCC) Iron deficiency anemia, unspecified iron deficiency anemia type Diarrhea, unspecified type CBC WITH AUTO DIFF OH Routine 09/28/2024 8:49 AM CDT Malignant neoplasm of overlapping sites of right breast in female, estrogen receptor positive (HCC) Carcinosarcoma of body of uterus (HCC) CMP (COMPREHENSIVE METABOLIC PANEL) Routine 09/28/2024 8:49 AM CDT Malignant neoplasm of overlapping sites of right breast in female, estrogen receptor positive (HCC) Carcinosarcoma of body of uterus (HCC) LACTATE DEHYDROGENASE (LD) Routine 09/28/2024 8:49 AM CDT Malignant neoplasm of overlapping sites of right breast in female, estrogen receptor positive (HCC) Carcinosarcoma of body of uterus (HCC) MAGNESIUM (MG) Routine 09/28/2024 8:49 AM CDT Malignant neoplasm of overlapping sites of right breast in female, estrogen receptor positive (HCC) Carcinosarcoma of body of uterus (HCC) CARCINOEMBRYONIC ANTIGEN (CEA) Routine 09/28/2024 8:49 AM CDT Malignant neoplasm of overlapping sites of right breast in female, estrogen receptor positive (HCC) Carcinosarcoma of body of uterus (HCC) from Last 3 Months Results * (ABNORMAL) CBC WITH AUTO DIFF OH (12/21/2024 9:14 AM CDT) Only the most recent of8 resultswithin the time period is included. WBC 10.0 4.0 - 10.0 10*3/uL [facility] HGB 11.1(L) 11.2 - 15.7 g/dL [facility] HCT 33.9(L) 34.1 - 44.9 % [facility] PLT 314 163 - 369 10*3/uL [facility] MPV 9.7 9.4 - 12.4 fL [facility] RBC 3.64(L) 3.93 - 5.22 10*6/uL [facility] MCV 93 79 - 95 fL [facility] MCH 30.5 25.6 - 32.2 pg [facility] MCHC 32.7 32.2 - 36.5 g/dL [facility] RDW 14.8(H) 11.6 - 14.4 % [facility] Neutrophils % 71.1(H) 36.0 - 66.0 % [facility] Lymphocytes % 20.2 19.0 - 40.0 % [facility] Monocytes % 3.8(L) 4.1 - 12.1 % [facility] Eosinophils % 3.1 0.0 - 3.5 % [facility] Basophils % 0.7 0.0 - 1.0 % [facility] Absolute Neutrophils 7.1(H) 1.4 - 6.6 10*3/uL [facility] Absolute Lymphocytes 2.0 0.8 - 4.0 10*3/uL [facility] Absolute Monocytes 0.4 0.2 - 1.2 10*3/uL [facility] Absolute Eosinophils 0.3 0.0 - 0.4 10*3/uL [facility] [facility] Absolute Basophils 0.1 0.0 - 0.1 10*3/uL [facility] 12/21/2024 9:14 AM CDT us Reymundo Arnold DO LAB SEND OUTS Final Result [facility] [place] [address], [place] [phone] * (ABNORMAL) CMP (COMPREHENSIVE METABOLIC PANEL) (12/21/2024 9:14 AM CDT) Only the most recent of9 resultswithin the time period is included. Glucose 177(H) 70 - 105 mg/dL [facility] Blood Urea Nitrogen 16 7 - 25 mg/dL [facility] Creatinine 0.8 0.6 - 1.2 mg/dL [facility] Sodium 140 136 - 145 mEq/L [facility] Potassium 3.6 3.5 - 5.1 mEq/L [facility] Chloride 105 98 - 107 mEq/L [facility] Bicarbonate 26 21 - 31 mEq/L [facility] Total Bilirubin 0.3 0.3 - 1.0 mg/dL [facility] Alk. Phosphatase 101 34 - 104 U/L [facility] Aspartate Aminotransferase 11(L) 13 - 39 U/L [facility] Alanine Aminotransferase 10 7 - 52 U/L [facility] Total Protein 6.3(L) 6.4 - 8.9 g/dL [facility] Albumin 4.1 3.5 - 5.7 g/dL [facility] Calcium 9.1 8.6 - 10.3 mg/dL [facility] Anion Gap 12.6 7.0 - 15.0 mEq/L [facility] Globulin 2.2 2.0 - 3.5 g/dL [facility] EGFR 82 >60 ml/min/1. 73m2 [facility] Comment: This eGFR is calculated using 2020 CKD-EPI Creatinine equation without race modifier based on the NKF-ASN task force recommendations Equation: bHCO=551*min(SCr/k,1)a*max(SCr/k,1)-1.200*0.9938Age*1.012 (if female), where SCr is serum creatinine, k is 0.7 for females and 0.9 for males, and a is -0.241 for females and -0.302 for males Blood 12/21/2024 9:14 AM CDT [facility] - 12/21/2024 10:38 AM CDT Release to patient->Immediate IS THE PATIENT REQUIRED TO BE FASTING FOR 8 HOURS?->No Reymundo Arnold DO CHEMISTRY ORDERABLES Final Res ult Performing Organization Address [facility] Co de Phone Number [facility] [place] [address], [place] [phone] * (ABNORMAL) CARCINOEMBRYONIC ANTIGEN (CEA) (12/21/2024 9:14 AM CDT) Only the most recent of7 resultswithin the time period is included. CEA 20.7(H) 0.0 - 5.0 ng/mL [facility] Comment: Sofi Paramagnetic Particle Chemiluminescent Immunoassay Method Blood 12/21/2024 9:14 AM CDT [facility] - 12/21/2024 2:29 PM CDT Release to patient->Immediate us Reymundo Arnold DO CHEMISTRY ORDERABLES Final Res ult Performing Organization Address [facility] Co de Phone Number [facility] [place] [address], [place] [phone] * (ABNORMAL) CANCER ANTIGEN (CA) 15-3 (12/21/2024 9:14 AM CDT) Only the most recent of6 resultswithin the time period is included. CA15-3 106.7(H) 0.0 - 31.3 U/mL [facility] Comment: Sofi Paramagnetic Particle Chemiluminescent Immunoassay Method Blood 12/21/2024 9:14 AM CDT [facility] - 12/21/2024 2:29 PM CDT Release to patient->Immediate Reymundo Arnold DO CHEMISTRY ORDERABLES Final Res ult Performing Organization Address [facility] Co de Phone Number [facility] [address] [address], * MAGNESIUM (MG) (11/30/2024 8:29 AM CDT) Only the most recent of3 resultswithin the time period is included. Magnesium 1.9 1.9 - 2.7 mg/dL [facility] Blood 11/30/2024 8:29 AM CDT [facility] - 11/30/2024 9:39 AM CDT Release to patient->Immediate Sarah Rao APRN, MAKEUP EDITOR CHEMISTRY ORDERABLES Final Result Performing Organization Address [facility] de Phone Number [facility] [address] [place] [address], * (ABNORMAL) COMPLETE BLOOD COUNT (CBC) WITH DIFF (11/09/2024 10:51 AM CDT) WBC 15.5(H) 4.0 - 10.0 10*3/uL [facility] HGB 10.8(L) 11.2 - 15.7 g/dL [facility] HCT 33.8(L) 34.1 - 44.9 % [facility] PLT 344 163 - 369 10*3/uL [facility] MPV 9.8 9.4 - 12.4 fL [facility] RBC 3.59(L) 3.93 - 5.22 10*6/uL [facility] MCV 94 79 - 95 fL [facility] MCH 30.1 25.6 - 32.2 pg [facility] MCHC 32.0(L) 32.2 - 36.5 g/dL [facility] RDW 15.6(H) 11.6 - 14.4 % [facility] Absolute Neutrophil Count 11,904 cells/uL [facility] Absolute Seg Count 11,904(H) 1,440 - 6,600 cells/uL [facility] Absolute Lymph Count 2,164 760 - 4,000 cells/uL [facility] Absolute [place] Count 155(L) 160 - 1,200 cells/uL [facility] Absolute Eos Count 773(H) 0 - 300 cells/uL [facility] Absolute Baso Count 309(H) 0 - 100 cells/uL [facility] Segmented Neutrophils 77(H) 36 - 66 % [facility] Lymphocytes 14(L) 19 - 40 % [facility] Monocytes 1(L) 4 - 12 % [facility] Eosinophils 5(H) 0 - 3 % [facility] Basophils 2(H) 0 - 1 % [facility] Metamyelocytes 1 0 - 2 % [facility] WBC Estimate High [facility] Platelet Estimate Normal CA NCER [facility] RBC Morphology Normal [facility] Blood 11/09/2024 10:5 1 AM CDT Narrative [facility] - 11/09/2024 3:08 PM CDT Release to patient->Immediate us Reymundo Arnold DO HEMATOLOGY ORDERABLES Final Re sult [facility] [place] [address], [place] [phone] * CT CHEST ABDOMEN AND PELVIS W CONTRAST (11/05/2024 11:39 AM CDT) Anatomical Region Laterality Modality Chest, Abdomen, Pelvis N/A Computed Tomography Narrative 11/05/2024 11:59 AM CDT EXAMINATION: CT CHEST ABDOMEN AND PELVIS W CONTRAST 11/05/2024 INDICATIONS: Malignant neoplasm of overlapping sites of right female breast breast carcinoma with metastatic disease to the ovary and uterus. COMPARISON: CT chest abdomen and pelvis 08/07/2024 TECHNIQUE: Following the administration of intravenous contrast, helical imaging was performed through the chest abdomen and pelvis. A dose lowering technique was used for this procedure, which may include, but is not limited to, dose reduction technique(s), automated exposure control techniques, use of iterative reconstruction techniques, and ALARA (as low as reasonably achievable) or ALARA/IMAGE Gently techniques. FINDINGS: Chest: Cardiovascular: Mild atherosclerotic disease is seen within the thoracic aorta without aneurysmal dilatation. The heart size is within normal limits. No significant coronary artery calcification is appreciated. The pulmonary arterial tree is intact without evidence of pulmonary embolism. Pleura: No significant pleural or pericardial effusion is seen. Lymphatics: Postoperative changes are seen within the right axilla. No recurrent adenopathy of the right axilla is seen. There is less than 1 cm left axillary lymph nodes. There is calcified density within the isthmus of the thyroid. Correlation with thyroid ultrasound could be considered. Less than 1 cm mediastinal and hilar lymph nodes are present. Lungs: Scarring is present within the lung apices. Small nodular density along the right pleura unchanged. Small pleural-based nodular density within right middle lobe is stable. No other suspicious pulmonary nodules are appreciated. Abdomen and pelvis: Hepatobiliary: The liver is homogeneous in attenuation. Pneumobilia is present. No discrete liver lesions are seen. The gallbladder is absent. The pancreas is within normal limits. Lymphatics: The spleen is nonenlarged. There is some prominent inguinal lymph nodes. Less than 1 cm iliac chain lymph nodes are present. Less than 1 cm mesenteric and retroperitoneal lymph nodes are also present. No new adenopathy. : The adrenal glands are normal configuration. The kidneys demonstrate symmetric enhancement. Bilateral ureteral stents are present. There is some urothelial thickening surrounding the stents within the renal pelves extending into the ureters. This is fairly similar to the prior. Bladder demonstrates wall thickening with some adjacent induration. Correlate with any symptoms of cystitis. The uterus is absent. Vaginal cuff probably stable in its appearance. GI: Rectal wall thickening with perirectal and presacral induration and thickening of the mesorectal fascia redemonstrated. There is some abnormal attenuation extending along the lateral aspect of the pelvis adjacent to the iliac vessels and ureters into the retroperitoneum similar to the previous. Borderline thickening of the stomach. There is fluid within the colon and small bowel with fluid levels which can be seen with ileus or gastroenteritis/diarrheal illness. There is some mild peritoneal thickening and subtle omental induration. The possibility of peritoneal carcinomatosis is raised. This does appear more pronounced when compared to the prior. Fat containing anterior abdominal wall hernias. No significant ascites. Vascular: Atherosclerotic disease is present without evidence of aneurysm. Musculoskeletal: Degenerative changes are seen. There is abnormal appearance of the left sacrum and left iliac bone similar to the prior. Focal sclerotic lesion of the right pedicle of T10 redemonstrated and not significantly changed. Postprocedural changes of the right breast are seen. IMPRESSION 1. Postprocedural changes of the right breast and right axilla stable in their appearance. No definite evidence of residual/recurrent disease. 2. No other evidence of metastatic disease within the chest. 3. Bilateral ureteral stents are present. There is urothelial thickening within the renal pelves and along the ureters adjacent to the stents more pronounced on the right compared to the left. These are similar to the prior. Recommend clinical correlation. 4. Postop changes hysterectomy. Vaginal cuff is stable in its appearance. There is some stranding and induration contiguous with the vaginal cuff extending along the mesorectal fascia and superiorly along the iliac chain and adjacent to the ureters probably not significantly changed. 5. Rectal wall thickening similar to previous uncertain in etiology. There is some perirectal and presacral induration present as well. 6. Fluid-filled small and large bowel with fluid levels can be seen with ileus or gastroenteritis. 7. Peritoneal thickening. There is some subtle omental induration. If anything this is more pronounced on today's study and is indeterminate. Changes of peritoneal carcinomatosis not excluded. No ascites is seen. Follow-up recommended. 8. Stable osseous changes of the left iliac bone and sacrum. There is also sclerotic lesion of the right pedicle of T10 unchanged. Electronically signed by: LEENA GORE MD, Staff Radiologist Date of Signature: 11/05/2024 11:59:15 Procedure Note Leena Gore MD - 11/05/2024 EXAMINATION: CT CHEST ABDOMEN AND PELVIS W CONTRAST 11/05/2024 INDICATIONS: Malignant neoplasm of overlapping sites of right female breast breastcarcinoma with metastatic disease to the ovary and uterus. COMPARISON: CT chest abdomen and pelvis 08/07/2024 TECHNIQUE: Following the administration of intravenous contrast, helical imaging wasperformed through the chest abdomen and pelvis. A dose lowering technique was used for this procedure, which may include,but is not limited to, dose reduction technique(s), automated exposurecontrol techniques, use of iterative reconstruction techniques, and ALARA(as low as reasonably achievable) or ALARA/IMAGE Gently techniques. FINDINGS: Chest: Cardiovascular: Mild atherosclerotic disease is seen within the thoracicaorta without aneurysmal dilatation. The heart size is within normallimits. No significant coronary artery calcification is appreciated. Thepulmonary arterial tree is intact without evidence of pulmonaryembolism. Pleura: No significant pleural or pericardial effusion is seen. Lymphatics: Postoperative changes are seen within the right axilla. Norecurrent adenopathy of the right axilla is seen. There is less than 1 cmleft axillary lymph nodes. There is calcified density within the isthmusof the thyroid. Correlation with thyroid ultrasound could be considered.Less than 1 cm mediastinal and hilar lymph nodes are present. Lungs: Scarring is present within the lung apices. Small nodular densityalong the right pleura unchanged. Small pleural-based nodular densitywithin right middle lobe is stable. No other suspicious pulmonary nodulesare appreciated. Abdomen and pelvis: Hepatobiliary: The liver is homogeneous in attenuation. Pneumobilia ispresent. No discrete liver lesions are seen. The gallbladder is absent.The pancreas is within normal limits. Lymphatics: The spleen is nonenlarged. There is some prominent inguinallymph nodes. Less than 1 cm iliac chain lymph nodes are present. Lessthan 1 cm mesenteric and retroperitoneal lymph nodes are also present. Nonew adenopathy. : The adrenal glands are normal configuration. The kidneys demonstratesymmetric enhancement. Bilateral ureteral stents are present. There issome urothelial thickening surrounding the stents within the renal pelvesextending into the ureters. This is fairly similar to the prior. Bladderdemonstrates wall thickening with some adjacent induration. Correlatewith any symptoms of cystitis. The uterus is absent. Vaginal cuffprobably stable in its appearance. GI: Rectal wall thickening with perirectal and presacral induration andthickening of the mesorectal fascia redemonstrated. There is someabnormal attenuation extending along the lateral aspect of the pelvisadjacent to the iliac vessels and ureters into the retroperitoneum similarto the previous. Borderline thickening of the stomach. There is fluidwithin the colon and small bowel with fluid levels which can be seen withileus or gastroenteritis/diarrheal illness. There is some mild peritonealthickening and subtle omental induration. The possibility of peritonealcarcinomatosis is raised. This does appear more pronounced when comparedto the prior. Fat containing anterior abdominal wall hernias. Nosignificant ascites. Vascular: Atherosclerotic disease is present without evidence ofaneurysm. Musculoskeletal: Degenerative changes are seen. There is abnormalappearance of the left sacrum and left iliac bone similar to the prior.Focal sclerotic lesion of the right pedicle of T10 redemonstrated and notsignificantly changed. Postprocedural changes of the right breast areseen. IMPRESSION 1. Postprocedural changes of the right breast and right axilla stable intheir appearance. No definite evidence of residual/recurrent disease. 2. No other evidence of metastatic disease within the chest. 3. Bilateral ureteral stents are present. There is urothelial thickeningwithin the renal pelves and along the ureters adjacent to the stents morepronounced on the right compared to the left. These are similar to theprior. Recommend clinical correlation. 4. Postop changes hysterectomy. Vaginal cuff is stable in its appearance.There is some stranding and induration contiguous with the vaginal cuffextending along the mesorectal fascia and superiorly along the iliac chainand adjacent to the ureters probably not significantly changed. 5. Rectal wall thickening similar to previous uncertain in etiology.There is some perirectal and presacral induration present as well. 6. Fluid-filled small and large bowel with fluid levels can be seen withileus or gastroenteritis. 7. Peritoneal thickening. There is some subtle omental induration. Ifanything this is more pronounced on today's study and is indeterminate.Changes of peritoneal carcinomatosis not excluded. No ascites is seen.Follow-up recommended. 8. Stable osseous changes of the left iliac bone and sacrum. There isalso sclerotic lesion of the right pedicle of T10 unchanged. Electronically signed by: LEENA GORE MD, Staff Radiologist Date of Signature: 11/05/2024 11:59:15 us Sarah Rao SUBSTATION SUPERINTENDENT, MAKEUP EDITOR IMG CT ORDERABLES Fin al Result * (ABNORMAL) URINALYSIS WITH MICROSCOPIC [place] (10/26/2024 10:17 AM CDT) Urine Red Blood Cells 51-100(A) 0 - 2 /HPF [facility] Urine Color Yellow Straw-Yel low [facility] Urine Clarity Cloudy(A) Clear [facility] Urine Glucose NEG NEG mg/dL [facility] Urine Bilirubin NEG NEG mg/dL [facility] Urine Ketones NEG NEG mg/dL [facility] Urine Specific Garner 1.025 1.015 - 1.020 [facility] Urine Blood 3+(A) NEG mg/L [facility] Urine pH 6.0 5.0 - 8.0 [pH] [facility] Urine Protein 2+(A) NEG mg/dL [facility] Urine Urobilinogen 0.2 0.2 - 1.0 mg/dL [facility] Urine Nitrite NEG NEG [facility] Urine Leukocytes 3+(A) NEG [facility] Urine Epithelial Cells Rare None,Rare ,Few /LPF [facility] Urine Mucus None None /LPF [facility] Urine Cast None None /LPF [facility] Urine Bacteria Many(A) None /HPF [facility] Urine Crystal None None /LPF [facility] Urine White Blood Cells 50-100(A) 0 - 4 /HPF [facility] 10/26/2024 10:1 7 AM CDT Narrative [facility] - 10/26/2024 1:25 PM CDT Release to patient->Immediate us Reymundo Arnold DO LAB SEND OUTS Final Result [facility] [place] [address], [place] [phone] * (ABNORMAL) URINALYSIS WITH MICROSCOPIC, C/S IF INDICATED [place] (10/19/2024 10:07 AM CDT) Urine Color Yellow Straw-Yel low [facility] Urine Clarity Turbid(A) Clear [facility] Urine Glucose NEG NEG mg/dL [facility] Urine Bilirubin NEG NEG mg/dL [facility] Urine Ketones NEG NEG mg/dL [facility] Urine Specific Garner 1.020 1.015 - 1.020 [facility] Urine Blood 3+(A) NEG mg/L [facility] Urine pH 6.0 5.0 - 8.0 [pH] [facility] Urine Protein 2+(A) NEG mg/dL [facility] Urine Urobilinogen 0.2 0.2 - 1.0 mg/dL [facility] Urine Nitrite POS(A) NEG [facility] Urine Leukocytes 2+(A) NEG [facility] Urine Epithelial Cells None None,Rare ,Few /LPF [facility] Urine Mucus None None /LPF [facility] Urine Cast None None /LPF [facility] Urine Bacteria Few(A) None /HPF [facility] Urine Crystal None None /LPF [facility] Urine White Blood Cells Innum(A) 0 - 4 /HPF [facility] Urine Red Blood Cells 51-100(A) 0 - 2 /HPF [facility] Comment:Culture and Sensitiv ity to follow 10/19/2024 10:0 7 AM CDT Narrative [facility] - 10/19/2024 12:07 PM CDT Release to patient->Immediate Sarah Rao SUBSTATION SUPERINTENDENT, MAKEUP EDITOR LAB SEND OUTS Final Result [facility] [place] [address], * (ABNORMAL) CULTURE, URINE (10/19/2024 10:07 AM CDT) Pathologist [facility] URINE CULTURE, ROUTINE FINAL REPORT(A) [facility] RESULT 1 ESCHERICHIA COLI(A) [facility] Comment: GREATER THAN 100,000 COLONY FORMING UNITS PER ML CEFAZOLIN WITH AN IGOR <=16 PREDICTS SUSCEPTIBILITY TO THE ORAL AGENTS CEFACLOR, CEFDINIR, CEFPODOXIME, CEFPROZIL, CEFUROXIME, CEPHALEXIN, AND LORACARBEF WHEN USED FOR THERAPY OF UNCOMPLICATED URINARY TRACT INFECTIONS DUE TO E. COLI, KLEBSIELLA PNEUMONIAE, AND PROTEUS MIRABILIS. ANTIMICROBIAL SUSCEPTIBILITY COMMENT [facility] Comment: S = SUSCEPTIBLE; I = INTERMEDIATE; R = RESISTANT P = POSITIVE; N = NEGATIVE MICS ARE EXPRESSED IN MICROGRAMS PER ML ANTIBIOTIC RSLT#1 RSLT#2 RSLT#3 RSLT#4 AMOXICILLIN/CLAVULANIC ACID S AMPICILLIN S CEFAZOLIN S CEFEPIME S CEFOXITIN S CEFPODOXIME S CEFTRIAXONE S CIPROFLOXACIN S ERTAPENEM S GENTAMICIN S LEVOFLOXACIN S MEROPENEM S NITROFURANTOIN S PIPERACILLIN/TAZOBACTAM S TETRACYCLINE S TOBRAMYCIN S TRIMETHOPRIM/SULFA S 10/19/2024 10:0 7 AM CDT Narrative [facility] - 10/22/2024 3:08 PM CDT TESTING PERFORMED AT: [] [facility], [address] [place] [address], [place], [address], PHONE: [phone], TEACHER OF THE HEARING IMPAIRED: COURTNEY GLEASON, PHD us Sarah Rao APRN, MAKEUP EDITOR MICROBIOLOGY - GENERA L ORDERABLES Final Result [facility] Elizabeth [place] [address], * (ABNORMAL) LACTATE DEHYDROGENASE (LD) (10/05/2024 9:23 AM CDT) Only the most recent of2 resultswithin the time period is included. Pathologist [facility]DH 115(L) 140 - 271 U/L [facility] Blood 10/05/2024 9:23 AM CDT Narrative [facility] - 10/05/2024 10:06 AM CDT Release to patient->Immediate us Earlene Perez SUBSTATION SUPERINTENDENT, MAKEUP EDITOR CHEMISTRY ORDERABLE S Final Result [facility] [address] [place] [address], [place] [phone] from Last 3 Months Insurance [employer] Care Teams Sed Special Education Teacher Relationship Specialty Start Date End Date Provider, None [place] PCP - General 12/13/20 Martin Mann MD [address] [facility] [address] [place] [address] 1st Estimation Manager Obstetrics & Gynecology 03/23/19 Reymundo Arnold DO [address] [place] [address] Consulting Physician Oncology 09/26/20 Gregor Canela MD [address] [facility] [place] [address] Gastroenterology 5/3/22 Lizbeth Andres MD [address] [place] [address] General Surgery 11/14/21
--- NOTE | 2024-12-24 06:56 | WPDHPUPDATE1 ---
History and Physical Update Update Date/Time: 12/24/24 06:56 History and Physical has been reviewed, including an updated exam of the patient. There are NO changes in the patient's condition. Risks, benefits, and alternatives have been discussed and questions answered. Patient agrees to proceed with procedure.
--- NOTE | 2024-12-24 10:35 | P.PNAN_ITS ---
Anes - Initial Pre Proc Eval Procedure: Operation Date: 12/24/24 13:00 Proposed Procedures p Cystoscopy, Bilateral Retrograde Pyelogram, Bilateral Stent Exchange - Sandor Colmenares MD Date/Time: 12/24/24 10:35 Surgeon: Sandor Colmenares MD Pre Op Diagnosis: bilateral hydronephrosis Patient Data Age: 64 Gender: F Height: 1.52 m Weight: 59 kg Allergies Allergy/AdvReac Type Severity Reaction Status Date / Time Sulfa (Sulfonamide Allergy Unknown Redness of Verified 12/10/24 14:40 Antibiotics) Skin morphine AdvReac Mild Nausea and Verified 12/10/24 14:40 Vomiting Home Medications ?Medication ?Instructions ?Recorded ?Confirmed ?Type calcium carb-ergocalciferol (vit 1 tablet PO DAILY 02/06/23 12/10/24 History D2) 600 mg calcium-200 unit tablet ondansetron HCl 8 mg tablet 8 mg PO Q8H PRN Nausea 02/06/23 12/10/24 History acetaminophen 325 mg tablet 650 mg PO Q4H Pain (Scale Score 04/03/23 12/10/24 History (Tylenol) 1-3) prochlorperazine maleate 10 mg 10 mg PO Q4H PRN nausea 04/03/23 12/10/24 History tablet magnesium oxide 400 mg (241.3 mg 400 mg PO HS 07/29/24 12/10/24 History magnesium) tablet oxybutynin chloride 5 mg 5 mg PO DAILY 07/29/24 12/10/24 History tablet,extended release 24 hr ciprofloxacin HCl 500 mg tablet 500 mg PO Q12H 12/10/24 12/10/24 History Patient hx anesthesia problems: none Family hx anesthesia problems: none Results Review: All pre-operative results and documents have been reviewed as part of the pre- operative evaluation. [facility] Past Medical History Medical History PONV (postoperative nausea and vomiting) DVT (deep venous thrombosis) Metastasis from breast cancer Surgical History Surgical History History of cholecystectomy History of mastectomy History of hysterectomy Family History Family History Mother Family history of diabetes mellitus in first degree relative Social History Social History Smoking status: Never smoker Second hand tobacco smoke exposure: No Alcohol intake: current Drinks per week: 2 Alcohol use details: SMALL AMOUNT ON WEEKENDS ONLY Substance use: never Substance use type: marijuana Other substance usage details: CBD gummies during chemo, not very often Lack of Transportation: No Lack of Food: Never True Current Housing: I Have Housing Concerned About Future Housing: No Difficulty Paying Gas/Electric Bills: No Difficulty Paying for Meds: No Currently Unemployed: No Education: Master's Degree or Higher Difficulty w/ Childcare or Family Care: No Living arrangements: with family Additional living arrangements comments: [facility] Spiritual care concerns: No Anes - Eval Final PreProcedure Day of Procedure 12/24/24 10:35 Patient weight: normal Heart: regular rate and rhythm Lungs: clear to auscultation Airway: Mallampati scale class II Neurological: alert and oriented Last oral intake: >/= 8 hours ASA classification: III Emergent: no Anesthetic plan: proceed Anesthesia type and monitoring: general LMA and standard monitoring Results Review: All pre-operative results and documents have been reviewed as part of the pre- operative evaluation. Informed Consent: The patient's anesthetic plan and its attendant risks and benefits were discussed with the patient/family/POA. Questions were solicited and answers provided to the satisfaction of the patient/family/POA.
[2024-12-24] MEDS: ceFAZolin 2 GM/D5W 50 ML 2 GM/50 ML BAG IVPB (11:26)
[2024-12-24] MEDS: LIDOCAINE 2% GEL UROJET 10 ML PKG MUCOUS MEM (11:33)
--- NOTE | 2024-12-24 11:51 | W.PM.PROC2 ---
Procedure Note - Detailed Date of Procedure 12/24/24 Pre-op Diagnosis Bilateral hydronephrosis Post-op Diagnosis Same Procedure Performed Cystoscopy, bilateral RPG, bilateral stent exchange Surgeon Sandor Colmenares MD Anesthesia General Description of Procedure Patient is brought to the operative suite where she is prepped and draped in routine sterile fashion in dorsal lithotomy position.? 2% xylocaine jelly was introduced intraurethrally and systemic sedation is administered per the anesthesia department.? Cystoscopy was undertaken with a 21 F rigid cystoscope.? Bladder mucosa is normal.? There was no intravesical foreign body and no signs of residual or recurrent neoplasm.? The ureteral orifices appeared to be in a normal position today.? The stents showed signs of slight encrustation after having been replaced a bit over 5 months ago.? The stents were exchanged over 0.035 in [place], replacing with 6 F variable length stent.? I did perform bilateral retrograde pyelography with a Geneva catheter to ensure appropriate positioning of the stents. Patient tolerated the procedure well.? I will plan to change the stents again in 6 months Drains Yes Pathology None sent Complications No immediate complications
[2024-12-24] MEDS: SCOPOLAMINE 1 MG PATCH 1 PATCH TRANSDERM (11:54)
[2024-12-24] MEDS: LACTATED RINGERS 1,000 ML 30 ML IV CONT (11:54)
== END 2024-12-24 13:18 | disposition home or self-care (01) ==
PROVIDERS: PCP Family Medicine Adolescent Medicine; Visit Provider Urology
PROC: (CPT 52352; principal; 2024-12-24 13:00)
DX: N13.39 Other hydronephrosis (principal); F12.90 Cannabis use, unspecified, uncomplicated; Z98.890 Other specified postprocedural states; Z90.49 Acquired absence of other specified parts of digestive tract; Z96.0 Presence of urogenital implants; Z85.3 Personal history of malignant neoplasm of breast; Z92.21 Personal history of antineoplastic chemotherapy; Z86.718 Personal history of other venous thrombosis and embolism
CPT/HCPCS: 52332; 74420; A9270; C1758; C1769; C2617; J0690; J1100; J2003; J2405; J2704; J3010; J7120; Q9966

== ENCOUNTER 2025-06-30 11:59 | Outpatient (CLI) | payer MEDICARE, SELFPAY ==
[2025-06-30 12:49] LABS: Add Urine Microscopic? YES; Appearance Urine Turbid (Clear); Glucose Urine UA Negative (Negative); Leukocyte Esterase Ur 3+ LEU/UL (Negative); Need Manual Microscopic Reviewed; Nitrate Urine Positive (Negative); Specific Grav Ur 1.023 (1.001-1.035)
--- OUTSIDE RECORDS SUMMARY | 2025-06-30 14:01 | XMS_ITS | Encounter Summary ---
Author Organization [facility] Address [address] [place] [address] Phone Care Team Providers Care Hairspring Truer Name Role Phone Martin Mann MD Unavailable Reymundo Arnold DO Unavailable [phone] Provider, None Primary Care Provider UnavailGregor Gonzáles MD Unavailable [phone] Lizbeth Andres MD Unavailable [phone] Reason for Visit * Reason Comments Medication Refill Encounter Details Date Type Department Care Team (Late st Contact Info) Description 07/24/2022 Refill [facility] [address] [place] [address] Reymundo rAnold, DO [address] [place] [address] Medication Refill Social History Tobacco [...] Coronavirus/COVID-19? No / Unsure 07/13/2022 11:30 AM CAMERA PERSON documented as of this encounter Miscellaneous Notes * Telephone Encounter - Anika Wilson RN - 07/24/2022 9:46 AM CST Refill request from pharmacy. Please fill if appropriate RA PERSON documented in this encounter Plan of Treatment Upcoming Encounters Date Type Department Care Team (Late st Contact Info) Description 07/05/2025 9:15 AM CAMERA PERSON Clinical Support [facility] [address] [phone] 07/05/2025 9:30 AM CAMERA PERSON Office Visit [facility] [address] [phone] Reymundo Arnold DO [address] [place] [phone] documented as of this encounter Visit Diagnoses Not on filedocumented in this encounter Additional Health Concerns Assessment Noted Time PHQ-9 Depression Total Score: 0 03/28/20 21 10:03 AM CDT documented as of this encounter Care Teams Hairspring Truer Relationship Specialty Start Date End Date Provider, None [place] PCP - General 12/13/20 Martin Mann MD [address] [address] 1st Production Crew Supervisor Obstetrics & Gynecology 03/23/19 Reymundo Arnold DO [address] [place] [phone] Consulting Physician Oncology 09/26/20 Gregor Canela MD [address] [address] Gastroenterology 11/14/21 Lizbeth Andres MD [address] [place] [address] General Surgery 11/14/21 documented as of this encounter
--- OUTSIDE RECORDS SUMMARY | 2025-06-30 14:01 | XMS_ITS | Clinical Summary ---
Author Organization [facility] Address [address] [place] [address] Care Team Providers Care Beader Tender Name Role Phone Macho Moody MD Primary Care Provider [phone] Yashira Desai NP Unavailable [phone] Allergies Active Allergy Reactions Criticality Noted Date Comments Sulfa Antibiotics Other (see comment),Photosensitivi ty,Unknown Medium 02/23/2019 Skin turned bright red like sunburn Medications acetaminophen 500 MG tablet Take 2 tablets (1,000 mg total) by mouth. Active octreotide (SANDOSTATIN) 100 MCG/ML Solution Inject 1 mL (100 mcg total) into the vein daily. Active ondansetron (ZOFRAN) 4 MG tablet Take 1 tablet (4 mg total) by mouth every 8 (eight) hours as needed for Nausea. Active oxybutynin XL (DITROPAN-XL) 5 MG 24 hr tablet Take 1 tablet (5 mg total) by mouth daily. Active prochlorperazin e (COMPAZINE) 10 MG tablet Take 1 tablet (10 mg total) by mouth every 6 (six) hours as needed. Active famotidine (PEPCID) 20 MG tablet Take 1 tablet (20 mg total) by mouth nightly as needed for Heartburn. Active Sacituzumab Govitecan-hziy (TRODELVY IV) Active Active Problems Problem Noted Date Diagnosed Date SBO (small bowel obstruction) 04/30/2024 Malignant neoplasm of breast in female, estrogen receptor positive, unspecified laterality, unspecified site of breast 12/10/2023 Malignant neoplasm of overla pping sites of breast in female, estrogen receptor positive, unspecified laterality 12/10/2023 Immunizations Immunization Administration Dates Next Due Fluzone (IIV3, Trivalent, 0.5 ML Prefilled Syrin ge) 05/02/2024 Family History Medical History Relation Comments Cancer Maternal Grandmother Relation Status Comments Maternal Grandmother Other colon Social History Tobacco Use Types Packs/Day Years Used Date Smoking Tobacco: Never Smokeless Tobacco: Never Alcohol Use Standard Drinks/Week Comments Yes 5 (1 standard drink = 0.6 oz pur e alcohol) a week [facility] Utilities Answer Date Recorded In the past 12 months has e Symptom.ly, [employer], oil, or water [employer] threatened to shut off services in your home? No 04/30/2024 Humiliation, Afraid, Rape, and Kick questionnair e Answer Date Recorded Within the last year, have y ou been afraid of your partner or ex-partner? No 04/30/2024 Within the last year, have y ou been humiliated or emotionally abused in other ways by your partner or ex-partner? No Within the last year, have y ou been kicked, hit, slapped, or otherwise physically hurt by your partner or ex-partner? No 04/30/2024 Within the last year, have y ou been raped or forced to have any kind of sexual activity by your partner or ex-partner? No 04/30/2024 Overall Financial Resource Strain (CARDIA) Answe r Date Recorded How hard is it for you to pa y for the very basics like food, housing, medical care, and heating? Not hard at all 04/30/2024 Hunger Vital Sign Answer Date Recorded Within the past 12 months, y ou worried that your food would run out before you got the money to buy more. Never true 04/30/20 24 Within the past 12 months, t he food you bought just didn't last and you didn't have money to get more. Never true 04/30/2024 PRAPARE - Transportation Answer Date Re corded In the past 12 months, has l ack of transportation kept you from medical appointments or from getting medications? No 04/14 In the past 12 months, has l ack of transportation kept you from meetings, work, or from getting things needed for daily living? No 04/30/2024 Housing Stability Vital Sign Answer Seth e Recorded In the last 12 months, was t here a time when you were not able to pay the mortgage or rent on time? No 04/30/2024 In the past 12 months, how m any times have you moved where you were living? 0 04/30/2024 At any time in the past 12 m [facility], were you homeless or living in a fpc (including now)? No 04/30/2024 Comments No Sex and Gender Information Value Date Recorded Sex Assigned at Not on file Legal Sex Female 6:32 PM CDT Gender Identity Not on file Sexual Orientation Not on file Last Filed Vital Signs Vital Sign Reading Time Taken Comments Blood Pressure 100/62 05/02/2024 12:04 PM CDT Pulse 81 05/02/2024 12:04 PM CDT Temperature 36.7 C (98.1 F) 05/02/2024 12:02 PM CDT Respiratory Rate 18 05/02/2024 12:02 PM CDT Oxygen Saturation 99% 05/02/2024 12:02 PM CDT Inhaled Oxygen Concentration - - Weight 54.9 kg (121 lb) 04/30/2024 2:17 PM CDT Height 152.4 cm (5') 04/30/2024 2:17 PM CDT Body Mass Index 23.63 04/30/2024 2:17 PM CDT Plan of Treatment Health Maintenance Due Date Last Done Comments Hepatitis C 1978 DTaP, Tdap and Td Vaccines (1 - Tdap) 1979 Mammogram Screening 2000 Pneumococcal Vaccine: 50+ Years (1 of 1 - PCV) 2010 Zoster Vaccines (1 of 2) 2010 RSV Immunization or 60+ Years (1 - Risk 60-74 years 1-dose series) 2020 COVID-19 Vaccine ( - season) 2025 05/16/2021, 10/05/2020, 09/13/2020 Influenza Adult (#1) 2025 05/02/2024, 05/18/2022, 07/05/2017, Additional history exists Dexa Scan (General) 2025 Colorectal Cancer Screening Colonoscopy (10 Years) 09/28/2031 09/27/2021 Hepatitis A Vaccines Aged Out No long er eligible based on patient's age to complete this topic Meningococcal B Vaccine Aged Out No l onger eligible based on patient's age to complete this topic Meningococcal Vaccine Aged Out No dania doris eligible based on patient's age to complete this topic RSV Immunizations Under 20 Months Aged Out No longer eligible based on patient's age to complete this topic Goals Goal Patient Goal Type Associated Problems Recent Progress Patient-Stated? Author Family - family caregiver with be involved in care transitions and discharge planning Lifestyle No [place]os [place], dupligraph operator Procedure Name Priority Date/Time Associated Diagnosis Comments COLONOSCOPY Routine 09/27/2021 10:41 AM CDT from Last 3 Months or Most Recently Relevant to Health Maintenance Insurance AETNA [facility] Advance Directives * Full Code (Latest Code Status on File) Date Activated Date Inactivated Comments 04/30/2024 5:37 PM 05/02/2024 4:42 PM Care Teams Beader Tender Relationship Specialty Start Date End Date Macho Moody MD [address] [address] PCP - General FAMILY PRACTICE 09/06/21 Yashira Desia NP [address] [place] [address] Nurse Practitioner Nurse Practitioner Family 05/01/23
--- OUTSIDE RECORDS SUMMARY | 2025-06-30 14:01 | XMS_ITS | Encounter Summary ---
Author Organization [facility] Address [address] [place] [address] Phone Care Team Providers Care Photographer Motion Picture Name Role Phone Martin Mann MD Unavailable Reymundo Arnold DO Unavailable [phone] Provider, None Primary Care Provider UnavailGregor Gonzáles MD Unavailable [phone] Lizbeth Andres MD Unavailable [phone] Reason for Visit * Reason Comments Medication Refill Encounter Details Date Type Department Care Team (Late st Contact Info) Description 01/27/2021 Refill [facility] [place] [address] [place] [address] Reymundo Arnold, DO [address] [place] [address] Medication Refill Social History Tobacco [...] st Contact Info) Description 07/05/2025 9:15 AM CHARGING MACHINE OPERATOR Clinical Support [facility] [address] [phone] 07/05/2025 9:30 AM CHARGING MACHINE OPERATOR Office Visit [facility] [address] [phone] Reymundo Arnold DO [address] [place] [phone] documented as of this encounter Visit Diagnoses Not on filedocumented in this encounter Additional Health Concerns Assessment Noted Time PHQ-9 Depression Total Score: 0 12/21/19 11:29 AM CDT documented as of this encounter Care Teams Photographer Motion Picture Relationship Specialty Start Date End Date Provider, None [place] PCP - General 12/13/20 Martin Mann MD [address] [facility] [address] [place] [address] 1st Personal Computer Specialist Obstetrics & Gynecology 03/23/19 Reymundo Arnold DO [address] [place] [phone] Consulting Physician Oncology 09/26/20 Gregor Canela MD [address] [address] Gastroenterology 11/14/21 Lizbeth Andres MD [address] [place] [address] General Surgery 11/14/21 documented as of this encounter
--- OUTSIDE RECORDS SUMMARY | 2025-06-30 14:01 | XMS_ITS ---
Author Organization [facility] Address [address] [place] [address] Care Team Providers Care Baccarat Dealer Name Role Phone Macho Moody MD Primary Care Provider [phone] Yashira Desai NP Unavailable Active Problems Problem Noted Date Diagnosed Date SBO (small bowel obstruction) 04/30/2024 Malignant neoplasm of breast in female, estrogen receptor positive, unspecified laterality, unspecified site of breast 12/10/2023 Malignant neoplasm of overla pping sites of breast in female, estrogen receptor positive, unspecified laterality 12/10/2023 Current Treatment and Therapy Plans No current plan information found. Past Treatment and Therapy Plans Infusions (1) Plan Name Start Date Discontinue Date Treatment Medications Discontinue Reason Plan Provider Blood Product Transfusion 12/11/2023 04/22/2025 No medications scheduled. Unlisted Reason (Comment) -
--- OUTSIDE RECORDS SUMMARY | 2025-06-30 14:01 | XMS_ITS | Clinical Summary ---
Author Organization [facility] [employer] Address [address] [facility] [place] [address] Care Team Providers Care Hog Operator Name Role Phone Macho Moody MD Primary Care Provider + Source Comments [facility] Affiliates and Associated Physician Practices is amultiple site organization consisting of ambulatory clinics and hospital sitesin [place], [place], [place] and [place]. This disclosure is being madepursuant to the Care Everywhere program and may not contain all information available regarding this patient. Last updated 18.[facility] [employer] Allergies Active Allergy Reactions Criticality Noted Date [...] Health Maintenance Due Date Last Done Comments BONE DENSITY TESTING 1960 COLOGUARD (AGES 45-75) - COLON CA SCREENING [...] or over 60 yrs (1 - Risk 50-74 years 1-dose series) 2010 MAMMOGRAM 07/28/2020 07/28/2018 (Done Outside Per Report) DEPRESSION SCREENING 07/15/2024 COVID-19 VACCINE ( season) 2025 05/18/2022, 12/01/2021, 05/16/2021, Additional history exists INFLUENZA VACCINE (#1) 2025 4, 06/18/2023, 05/18/2022, Additional history exists COLON MONITORING 11/11/2031 11/10/2021, , 09/27/2021 COLONOSCOPY - COLON CA SCREENING 11/11/2031 11/10/2021, 11/10/2021, 09/27/2021 Colorectal Cancer Screening 11/11/2031 HEPATITIS B VACCINE Aged Out No longe [...] entire procedure. Procedure Code(s): --- Professional --- 55572, 52, Colonoscopy, flexible; with removal of tumor(s), polyp(s), or other lesion(s) by snare technique 52281, 59,52, Colonoscopy, flexible; with biopsy, single or multiple Diagnosis Code(s): --- Professional --- K56.699, Other intestinal obstruction unspecified as to partial versus complete obstruction K62.1, Rectal polyp R93.3, Abnormal findings on diagnostic imaging of other parts of digestive tract CPT copyright 2019 [employer]. All rights reserved. The codes documented in this report are preliminary and upon motor patrol operator review may be revised to meet current compliance requirements. Gregor Hilliard MD 11/10/2021 10:05:26 AM Note Initiated On: 11/10/2021 8:35 AM Number of Addenda: [address] [address] [facility] 11/10/2021 8:35 AM CDT us Gregor Hilliard MD GI PROCEDURE ORDERAB LES Edited Result - Final [facility] from Last 3 Months or Most Recently Relevant to Health Maintenance Insurance AETNA AETNA Care Teams Hog Operator Relationship Specialty Start Date End Date Macho Moody MD [address] [address] PCP - General 02/13/19
--- OUTSIDE RECORDS SUMMARY | 2025-06-30 14:01 | XMS_ITS | Encounter Summary ---
Author Organization [facility] Address [address] [facility] [place] [address] Care Team Providers Care Radial Drill Press Operator Name Role Phone Macho Moody MD Primary Care Provider + Encounter Details Date Type Department Care Team (Late st Contact Info) Description 04/10/2019 Lab Requisition [facility] [address] [place] [address] Pop Bauer MD [address] [place], [place] [id number] Social History Tobacco Use Types Packs/Day Years [...] 1:10 PM CDT) Client Specimen ID # [id number] 04/16/2019 11:07 AM CDT [facility] Number of Blocks Received 0 04/16/2019 11:07 AM CDT [facility] Number of Slides 1 04/16/2019 11:07 AM CDT [facility] Number of Control Slides 1 04/16/2019 11:07 AM CDT [facility] Pathology/Cytolo gy SPECIMEN FROM UTERINE CERVIX OBTAINED BY HYSTERECTOMY / Unknown 04/10/2019 1:10 PM CDT 04/10/2019 3:34 PM CDT Pop Bauer MD LAB - PATHOLOGY/CYTOLOGY ORDER VIC Final Result [facility] [address] [place] [address], [facility] [phone] documented in this encounter Visit Diagnoses Not on filedocumented in this encounter Care Teams Radial Drill Press Operator Relationship Specialty Start Date End Date Macho Moody MD [address] [address] PCP - General 02/13/19 documented as of this encounter
--- OUTSIDE RECORDS SUMMARY | 2025-06-30 14:01 | XMS_ITS | Encounter Summary ---
Author Organization [facility] Address [address] [place] [address] Phone Care Team Providers Care Counter Supply Worker Name Role Phone Martin Mann MD Unavailable Reymundo Arnold DO Unavailable [phone] Provider, None Primary Care Provider UnavailGregor Gonzáles MD Unavailable [phone] Lizbeth Andres MD Unavailable [phone] Encounter Details Date Type Department Care Team (Late st Contact Info) Description 01/02/2021 Telephone [facility] [address] [place] [address] Reymundo Arnold, DO [address] [place] [address] Social History Tobacco Use Types [...] 9:49 AM CDT Spoke with Bonnie at [facility] and she mentioned that for Ms. Francisco that you spoke with Dr. Carvalho about holding off on this patient's biopsy for at least 3 to 6 months. I just wanted to confirm this before we close out her referral. Please advise. Bonnie-[facility] ext [phone] documented in this encounter Plan of Treatment Upcoming Encounters Date Type Department Care Team (Late st Contact Info) Description 07/05/2025 9:15 AM DESIGN SPECIALIST Clinical Support [facility] [address] [phone] 07/05/2025 9:30 AM DESIGN SPECIALIST Office Visit [facility] [address] [phone] Reymundo Arnold DO [address] [place] [phone] documented as of this encounter Visit Diagnoses Not on filedocumented in this encounter Additional Health Concerns Assessment Noted Time PHQ-9 Depression Total Score: 0 12/21/19 21 11:29 AM CDT documented as of this encounter Care Teams Counter Supply Worker Relationship Specialty Start Date End Date Provider, None [place] PCP - General 12/13/20 Martin Mann MD [address] [facility] [address] [place] [address] 1st Geriatric Social Work Professor Obstetrics & Gynecology 03/23/19 Reymundo Arnold DO [address] [place] [phone] Consulting Physician Oncology 09/26/20 Gregor Canela MD [address] [address] Gastroenterology 11/14/21 Lizbeth Andres MD [address] [place] [address] General Surgery 11/14/21 documented as of this encounter
--- OUTSIDE RECORDS SUMMARY | 2025-06-30 14:01 | XMS_ITS ---
Author Organization [facility] Address [address] [facility] [place] [address] Care Team Providers Care Gun Examiner Name Role Phone Macho Moody MD Primary [...]
--- OUTSIDE RECORDS SUMMARY | 2025-06-30 14:01 | XMS_ITS | Encounter Summary ---
Author Organization [facility] Address [address] [place] [address] Phone Care Team Providers Care Social Sciences Instructor Name Role Phone Martin Mann MD Unavailable Reymundo Arnold DO Unavailable [phone] Provider, None Primary Care Provider UnavailGregor Gonzáles MD Unavailable [phone] Lizbeth Andres MD Unavailable [phone] Reason for Visit * Reason Comments Medication Refill Encounter Details Date Type Department Care Team (Late st Contact Info) Description 09/12/2022 Refill [facility] [address] [place] [address] Reymundo Arnold, DO [address] [place] [address] Medication Refill Social History Tobacco [...] Coronavirus/COVID-19? No / Unsure 09/07/2022 10:38 AM HEATING FIXTURE TENDER documented as of this encounter Miscellaneous Notes * Telephone Encounter - Blue Stewart RN - 09/12/2022 12:16 PM CST Refill request from pharmacy. Refill if appropriate. ING FIXTURE TENDER documented in this encounter Plan of Treatment Upcoming Encounters Date Type Department Care Team (Late st Contact Info) Description 07/05/2025 9:15 AM HEATING FIXTURE TENDER Clinical Support [facility] [address] [phone] 07/05/2025 9:30 AM HEATING FIXTURE TENDER Office Visit [facility] [address] [phone] Reymundo Arnold DO [address] [place] [phone] documented as of this encounter Visit Diagnoses Diagnosis Malignant neoplasm of overlapping sites of breast in female, estrogen receptor positive, unspecified laterality documented in this encounter Additional Health Concerns Assessment Noted Time PHQ-9 Depression Total Score: 0 03/28/20 10:03 AM CDT documented as of this encounter Care Teams Social Sciences Instructor Relationship Specialty Start Date End Date Provider, None [place] PCP - General 12/13/20 [place] [address] [place] [address] 1st Engine Lathe Operator Obstetrics & Gynecology 03/23/19 Reymundo Arnold DO [address] [place] [phone] Consulting Physician Oncology 09/26/20 Gregor Canela MD [address] [address] Gastroenterology 11/14/21 Lizbeth Andres MD [address] [place] [address] General Surgery 11/14/21 documented as of this encounter
--- OUTSIDE RECORDS SUMMARY | 2025-06-30 14:02 | XMS_ITS ---
Author Organization [facility] Address [address], [facility] [address] [place] [address] Phone Care Team Providers Care Rail Car Driver Name Role Phone Martin aMnn MD Unavailable Reymundo Arnold DO Unavailable [phone] Provider, None Primary Care Provider UnavailGregor Gonzáles MD Unavailable [phone] Lizbeth Andres MD Unavailable Active Problems Problem Noted Date Diagnosed Date B12 deficiency 02/08/2025 Encounter for immunotherapy 12/28/2024 Diarrhea 12/08/2024 Iron deficiency anemia 08/17/2024 Elevated [...] of right breast in female, 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 Treatment Medications Current Day (Day 1 , Cycle 21 - Planned for 07/12/2025) Next Day (Day 8, Cycle 21 - Planned for 07/19/2025) sacituzumab govitecan-hziy (TRODELVY) infusion sacituzumab govitecan-HZIY (TRODELVY) 540 mg in sodium chloride 0.9 % 250 mL chemo infusion sacituzumab govitecan-HZIY (TRODELVY) 540 mg in sodium chloride 0.9 % 250 mL chemo infusion SUPPORT - HYDRATION WITHOUT ADDITIVES - [facility]I* Plan Start Date:02/12/2025 Plan Provider:Reymundo Arnold DO Linked Problems Carcinosarcoma of body of ut erusIron deficiency anemia, unspecified iron deficiency anemia type Treatment Medications No medications scheduled. Other Current Plans [facility]: SandoSTATIN LAR - 28 Day Cycle - Malignant Bowel Obstruction* Plan Start Date:05/25/2024 Plan Provider:Reymundo Arnold DO Linked Problems SBO (small bowel obstruction ) Treatment Medications Current Day (Day 1, Cycle 15 - Planned for 07/13/2025) No medications scheduled. No medications schedul ed. SUPPORT - B12 Q 28 DAYS - [facility]* Plan Start Date:01/03/2023 Plan Provider:Reymundo Arnold DO Linked Problems Anemia, unspecified type Treatment Medications No medications scheduled. Past Treatment and Therapy Plans ONCOLOGY SECONDARY SUPPORTIVE CARE Plan Name Start Date Discontinue Date Treatment Medications Discontinue Reason Plan Provider Cycles [facility]I: Support Iron Dextran 08/19/2024 01/01/2025 No medications scheduled. Plan Clean Up Sarah Rao APRN, PARA MACHINE OPERATOR 1 of 1 cycle started [facility]: Support Injectafer 5 08/18/2024 No medications scheduled. Plan Clean Up Sarah Rao APRN, PARA MACHINE OPERATOR Treatment not started SUPPORT - HYDRATION WITHOUT [...] 7 cycles started BREAST - FULVESTRANT - [facility] 2 01/29/2023 No medications scheduled. Plan Clean Up Clayton, Reymundo D, DO 15 (16 of 18 cycles) started BREAST - IBRANCE/FULVES TRANT - [facility] 2 11/23/2021 No medications scheduled. Therapy Complete Clayton, Reymundo D, DO Treatment not started CARBOPLATIN/TA XOL - [facility] 9 10/17/2021 CARBOplatin (PARAPLATIN) chemo infusion (by AUC)PACLitaxel (TAXOL) chemo infusion Plan Clean Up Clayton, Reymundo D, DO 6 of 6 cycles started ORAL CHEMO TREATMENT Plan Name Start Date Discontinue Date Treatment Medications Discontinue Reason Plan Provider Cycles BREAST - ORAL CAPECITABINE - [facility] 4 05/25/2024 capecitabine (XELODA) Plan Clean Up Clayton, Reymundo D, DO Treatment not started BREAST - PALBOCICLIB (IBRANCE) - [facility] 2 01/29/2023 palbociclib (IBRANCE) Plan Clean Up Clayton, Reymundo D, DO 0 (1 of 7 cycles) started Lifetime Dose Tracking * Chemical Lifetime Dose Automatic Entry Manual Entr y Carboplatin 1,777.645 mg/m2 (2,9 84.125 mg) 1,777.645 mg/m2 (2,984.125 mg) 0 mg/m2 (0 mg)
--- OUTSIDE RECORDS SUMMARY | 2025-06-30 14:02 | XMS_ITS | Encounter Summary ---
Author Organization [facility] Address [address] [place] [address] Phone Care Team Providers Care Packing Attendant Name Role Phone Martin Mann MD Unavailable Reymundo Arnold DO Unavailable [phone] Provider, None Primary Care Provider UnavailGregor Gonzáles MD Unavailable [phone] Lizbeth Andres MD Unavailable [phone] Reason for Visit * Reason Comments Medication Refill Encounter Details Date Type Department Care Team (Late st Contact Info) Description 03/19/2024 Refill [facility] [address] [place] [address] Earlene Perez, SECURITY SCREENER, MIXING MACHINE ATTENDANT [address] [place] [phone] Medication Refill Social History Tobacco Use Types [...] st Contact Info) Description 07/05/2025 9:15 AM PREKINDERGARTEN TEACHER Clinical Support [facility] [address] [phone] 07/05/2025 9:30 AM PREKINDERGARTEN TEACHER Office Visit [facility] [address] [phone] Reymundo Arnold DO [address] [place] [phone] documented as of this encounter Visit Diagnoses Diagnosis Malignant neoplasm of overlapping sites of right breast in female, estrogen receptor positive documented in this encounter Additional Health Concerns Assessment Noted Time PHQ-9 Depression Total Score: 0 03/28/20 10:03 AM CDT documented as of this encounter Care Teams Packing Attendant Relationship Specialty Start Date End Date Provider, None [place] PCP - General 12/13/20 Martin Mann MD [address] [facility] [address] [place] [address] 1st Social Work Case Manager Obstetrics & Gynecology 03/23/19 Reymundo Arnold DO [address] [place] [phone] Consulting Physician Oncology 09/26/20 Gregor Canela MD [address] [address] Gastroenterology 11/14/21 Lizbeth Andres MD [address] [place] [address] General Surgery 11/14/21 documented as of this encounter
--- OUTSIDE RECORDS SUMMARY | 2025-06-30 14:02 | XMS_ITS | Clinical Summary ---
Author Organization [facility] Address [address], [facility] [place] [address] Phone Care Team Providers Care Land Examiner Name Role Phone Martin Mann MD Unavailable Reymundo Arnold DO Unavailable [phone] Provider, None Primary Care Provider UnavailGregor Gonzáles MD Unavailable [phone] Lizbeth Andres MD Unavailable [phone] Allergies Active Allergy Reactions Criticality Noted Date [...] prior to chemo infusion. 30 g 2 10/24/19 24 Active ibuprofen (MOTRIN) 600 MG Tablet Take 600 mg by mouth every 6 hours as needed. Active ondansetron (ZOFRAN) 4 MG TabletIndicatio ns:Malignant neoplasm of overlapping sites of right breast in female, estrogen receptor positive,Carcin osarcoma of body of uterus Take 1 Tablet by mouth every 6 hours as needed for Nausea - 1st line. 40 Tablet 3 04/26/20 24 Active prochlorperazin e (COMPAZINE) 10 MG TabletIndicatio ns:Malignant neoplasm of overlapping sites of right breast in female, estrogen receptor positive,Carcin osarcoma of body of uterus Take 1 Tablet by mouth every 4 hours as needed for Nausea - 1st line. 40 Tablet 3 04/26/20 24 Active Loperamide HCl (Imodium A-D) 2 MG TabletIndicatio ns:Malignant neoplasm of overlapping sites of right breast in female, estrogen receptor positive,Carcin osarcoma of body of uterus Take 1 Tablet by mouth See Admin Instructions. Take two tablets by mouth at the onset of diarrhea, then one tablet with every episode of diarrhea thereafter. Max 8 tablets per day 20 Tablet 04/26/20 24 Active octreotide ACETATE (SandoSTATIN LAR) 20 MG Kit 20 mg by Intramuscular route every 28 days. Active cephALEXin (KEFLEX) 250 MG Capsule Take 250 mg by mouth daily. 12/25/19 25 Active CRANBERRY PO Take by mouth. Ac tive chlorhexidine (PERIDEX) 0.12 % Solution 03/17/20 25 Active magnesium oxide (MAG-OX) 400 (240 Mg) MG Tablet TAKE 1 TABLET BY MOUTH DAILY 30 Tablet 1 05/24/20 25 Active nitrofurantoin, monohydrate-mac rocrystal, (MACROBID) 100 MG Capsule Take 1 Capsule by mouth 2 times daily for 5 days. 10 Capsule 06/02/20 25 025 Active Problems Problem Noted Date Diagnosed Date [...] Encounters Date Type Department Care Team Description 06/22/2025 9:30 AM MILK PASTEURIZER Clinical Support [facility] [address] [phone] Nurse, Cc [place] Malignant neoplasm of overlapping sites of right breast in female, estrogen receptor positive (Primary Dx); Carcinosarcoma of body of uterus 06/21/2025 9:45 AM MILK PASTEURIZER Office Visit [facility] [address] [phone] Sarah Rao APRN, PHYSICIAN PRESIDENT Malignant neoplasm of overlapping sites of right breast in female, estrogen receptor positive (Primary Dx); Encounter for antineoplastic immunotherapy 06/21/2025 9:30 AM MILK PASTEURIZER Clinical Support [facility] [address] [address] Nurse, Cc [place] Carcinosarcoma of body of uterus (Primary Dx); Malignant neoplasm of overlapping sites of right breast in female, estrogen receptor positive 06/21/2025 Travel 06/15/2025 1:30 PM MILK PASTEURIZER Clinical Support [facility] [address] [phone] SBO (small bowel obstruction) (Primary Dx) 06/14/2025 9:45 AM MILK PASTEURIZER Office Visit [facility] [address] [phone] Sarah Rao APRN, PHYSICIAN PRESIDENT Malignant neoplasm of overlapping sites of right breast in female, estrogen receptor positive (Primary Dx); Carcinosarcoma of body of uterus; Diarrhea, unspecified type; Encounter for antineoplastic immunotherapy 06/14/2025 9:30 AM MILK PASTEURIZER Clinical Support [facility] [address] [phone] Carcinosarcoma of body of uterus (Primary Dx); Malignant neoplasm of overlapping sites of right breast in female, estrogen receptor positive; SBO (small bowel obstruction) 06/14/2025 Travel 06/01/2025 1:00 PM MILK PASTEURIZER Clinical Support [facility] [address] [phone] Nurse, Cc [place] Malignant neoplasm of overlapping sites of right breast in female, estrogen receptor positive (Primary Dx); Carcinosarcoma of body of uterus 05/31/2025 9:30 AM MILK PASTEURIZER Clinical Support [facility] [address] [phone] Carcinosarcoma of body of uterus (Primary Dx); Malignant neoplasm of overlapping sites of right breast in female, estrogen receptor positive; Chemotherapy-induced neutropenia; Diarrhea, unspecified type; B12 deficiency; Anemia, unspecified type; SBO (small bowel obstruction) 05/31/2025 9:15 AM MILK PASTEURIZER Office Visit [facility] [address] [phone] Reymundo Arnold, DO Malignant neoplasm of overlapping sites of right breast in female, estrogen receptor positive (Primary Dx); SBO (small bowel obstruction) 05/31/2025 Results Follow-Up [facility] [address] [address] Reymundo Arnold, DO URINALYSIS WITH MICROSCOPIC OH, CULTURE, URINE 05/31/2025 Travel 05/24/2025 9:45 AM MILK PASTEURIZER Office Visit [facility] [address] [address] Caroline Avila, GAS DISTRIBUTION AND EMERGENCY CLERK, PHYSICIAN PRESIDENT Malignant neoplasm of overlapping sites of right breast in female, estrogen receptor positive (Primary Dx); Carcinosarcoma of body of uterus; Chemotherapy-induced neutropenia; Diarrhea, unspecified type; B12 deficiency; Anemia, unspecified type 05/24/2025 9:30 AM MILK PASTEURIZER Clinical Support [facility] [address] [address] Carcinosarcoma of body of uterus (Primary Dx); Malignant neoplasm of overlapping sites of right breast in female, estrogen receptor positive; SBO (small bowel obstruction); B12 deficiency; Anemia, unspecified type; Chemotherapy-induced neutropenia; Encounter for immunotherapy; Iron deficiency anemia, unspecified iron deficiency anemia type 05/24/2025 Travel 05/22/2025 Refill [facility] [address] [phone] Reymundo Arnold, DO Medication Refill 05/18/2025 1:00 PM MILK PASTEURIZER Clinical Support [facility] [address] [phone] Nurse, Cc Of[place] SBO (small bowel obstruction) (Primary Dx) 05/18/2025 Travel 05/11/2025 1:00 PM CDT Clinical Support [facility] [address] [address] Nurse, Cc [place] Malignant neoplasm of overlapping sites of right breast in female, estrogen receptor positive (Primary Dx); Carcinosarcoma of body of uterus 05/10/2025 9:15 AM CDT Office Visit [facility] [address] [phone] Earlene Perez APRN, PHYSICIAN PRESIDENT Malignant neoplasm of overlapping sites of right breast in female, estrogen receptor positive (Primary Dx); SBO (small bowel obstruction); B12 deficiency; Carcinosarcoma of body of uterus; Anemia, unspecified type; Chemotherapy-induced neutropenia; Encounter for immunotherapy 05/10/2025 9:00 AM CDT Clinical Support [facility] [address] [phone] Carcinosarcoma of body of uterus (Primary Dx); SBO (small bowel obstruction); Malignant neoplasm of overlapping sites of right breast in female, estrogen receptor positive; Chemotherapy-induced neutropenia; Encounter for immunotherapy; Diarrhea, unspecified type 05/10/2025 Travel 05/04/2025 Results Follow-Up [facility] [address] [phone] Reymundo Arnold, CANCER ANTIGEN (CA) 15-3, CARCINOEMBRYONIC ANTIGEN (CEA), MAGNESIUM (MG), Additional followed-up results: 3 05/03/2025 9:00 AM CDT Office Visit [facility] [address] [phone] Earlene Perez APRN, PHYSICIAN PRESIDENT Malignant neoplasm of overlapping sites of right breast in female, estrogen receptor positive (Primary Dx); SBO (small bowel obstruction); Carcinosarcoma of body of uterus; Chemotherapy-induced neutropenia; Encounter for immunotherapy; Diarrhea, unspecified type 05/03/2025 8:30 AM CDT Clinical Support [facility] [address] [address] Carcinosarcoma of body of uterus (Primary Dx); Malignant neoplasm of overlapping sites of right breast in female, estrogen receptor positive; SBO (small bowel obstruction); B12 deficiency; Anemia, unspecified type; Chemotherapy-induced neutropenia; Encounter for immunotherapy 04/30/2025 8:00 AM CDT Ancillary Procedure [facility] [address] [address] Malignant neoplasm of overlapping sites of right breast in female, estrogen receptor positive; SBO (small bowel obstruction); B12 deficiency; Carcinosarcoma of body of uterus; Anemia, unspecified type; Chemotherapy-induced neutropenia; Encounter for immunotherapy 04/30/2025 Travel 04/20/2025 9:30 AM CDT Clinical Support [facility] [address] [phone] Nurse, Serena Coburn SBO (small bowel obstruction) (Primary Dx); Malignant neoplasm of overlapping sites of right breast in female, estrogen receptor positive; Carcinosarcoma of body of uterus; Iron deficiency anemia, unspecified iron deficiency anemia type 04/19/2025 8:45 AM CDT Office Visit [facility] [address] [phone] Earlene Perez APRN, PHYSICIAN PRESIDENT Malignant neoplasm of overlapping sites of right breast in female, estrogen receptor positive (Primary Dx); SBO (small bowel obstruction); B12 deficiency; Carcinosarcoma of body of uterus; Anemia, unspecified type; Chemotherapy-induced neutropenia; Encounter for immunotherapy 04/19/2025 8:30 AM CDT Clinical Support [facility] [address] [phone] Carcinosarcoma of body of uterus (Primary Dx); Malignant neoplasm of overlapping sites of right breast in female, estrogen receptor positive; Chemotherapy-induced neutropenia 04/19/2025 Travel 04/12/2025 8:45 AM CDT Office Visit [facility] [address] [phone] Caroline Avila APRN, PHYSICIAN PRESIDENT Malignant neoplasm of overlapping sites of right breast in female, estrogen receptor positive (HCC) (Primary Dx); Chemotherapy-induced neutropenia (HCC); Carcinosarcoma of body of uterus (HCC) 04/12/2025 8:30 AM CDT Clinical Support [facility] [address] [phone] Carcinosarcoma of body of uterus (HCC) (Primary Dx); Malignant neoplasm of overlapping sites of right breast in female, estrogen receptor positive (HCC); SBO (small bowel obstruction) (HCC); B12 deficiency; Anemia, unspecified type 04/12/2025 Travel from Last 3 Months Immunizations Immunization Administration Dates Next Due Covid-19, Mrna, Lnp-s, Pf, 3 0 Mcg/0.3 Ml Dose ([employer]) 05/16/2021,10/05/2020,09/13/2020 Influenza Vaccine, Quadrivalent, PF 06/18/2023,1 07/18/2021 Influenza,Split Virus,Trivalent,Injectable,PF 05/02/2024 Pneumococcal conjugate PCV20 , polysaccharide [id number] conjugate, adjuvant, PF 06/30/2024 RSV, Recombinant, Protein [...] Sign Reading Time Taken Comments Blood Pressure 140/100 06/21/2025 10:12 AM MILK PASTEURIZER Pulse 104 06/21/2025 10:12 AM MILK PASTEURIZER Temperature 36.5 C (97.7 F) 06/21/2025 10:12 AM MILK PASTEURIZER Respiratory Rate 18 06/21/2025 10:12 AM MILK PASTEURIZER Oxygen Saturation 98% 06/21/2025 10:12 AM MILK PASTEURIZER Inhaled Oxygen Concentration - - Weight 60.5 kg (133 lb 6.4 oz) 06/21/2025 10:12 AM MILK PASTEURIZER Height 152.4 cm (5') 06/21/2025 10:12 AM MILK PASTEURIZER Body Mass Index 26.05 06/21/2025 10:12 AM MILK PASTEURIZER Plan of Treatment Upcoming Encounters Date Type Department Care Team (Late st Contact Info) Description 07/05/2025 9:15 AM MILK PASTEURIZER Clinical Support [facility] [address] [phone] 07/05/2025 9:30 AM MILK PASTEURIZER Office Visit [facility] [address] [phone] Reymundo Arnold, DO [address] [place] [phone] Health Maintenance Due Date Last Done Comments DEXA Bone Density 1960 Hepatitis C Virus (HCV) Screening 1960 Mammogram Unilateral 1960 TdaP Immunization 1960 Zoster Immunization (1 of 2) 1979 Cologuard 2005 Immunochemical Fecal Occult Blood 2005 Influenza Immunization (#1) 03/15/202504/14, 06/18/2023, 05/18/2022 SARS-COV-2 Immunization ( season) 2025 06/30/2024, 06/18/2023, 05/18/2022, Additional history exists Welcome to Medicare (IPPE) [id number] 04/14/2025 Colonoscopy 11/11/2031 11/10/2021, 09/27/2021 Colorectal Cancer Screening 11/11/2031 Respiratory Syncytial Virus (RSV) Immunization (Adult) Completed 06/18/2023 Pneumococcal Immunization (50+ years) Completed 06/30/2024 Pneumococcal Immunization Combined Discontinued 06/30/2024 Hepatitis B Immunization Aged Out No longer eligible based on patient's age to complete this topic Human Papillomavirus (HPV) Immunization (No Doses Required) Completed Meningococcal Immunization (ACWY) Aged Out No longer eligible based on patient's age to complete this topic Rotavirus Immunization Aged Out No lo nger eligible based on patient's age to complete this topic Procedures Procedure Name Priority Date/Time Associated Diagnosis Comments CBC WITH AUTO DIFF OH Routine 06/21/2025 9:52 AM MILK PASTEURIZER CMP (COMPREHENSIVE METABOLIC PANEL) Routine 06/21/2025 9:52 AM MILK PASTEURIZER COMPLETE BLOOD COUNT (CBC) WITH DIFF Routine 06/14/2025 9:38 AM MILK PASTEURIZER Malignant neoplasm of overlapping sites of right breast in female, estrogen receptor positive SBO (small bowel obstruction) CMP (COMPREHENSIVE METABOLIC PANEL) Routine 06/14/2025 9:38 AM MILK PASTEURIZER Malignant neoplasm of overlapping sites of right breast in female, estrogen receptor positive SBO (small bowel obstruction) CARCINOEMBRYONIC ANTIGEN (CEA) Routine 06/14/2025 9:38 AM MILK PASTEURIZER Malignant neoplasm of overlapping sites of right breast in female, estrogen receptor positive SBO (small bowel obstruction) CANCER ANTIGEN (CA) 15-3 Routine 06/14/2025 9:38 AM MILK PASTEURIZER Malignant neoplasm of overlapping sites of right breast in female, estrogen receptor positive SBO (small bowel obstruction) URINALYSIS WITH MICROSCOPIC OH Routine 05/31/2025 10:13 AM MILK PASTEURIZER Malignant neoplasm of overlapping sites of right breast in female, estrogen receptor positive SBO (small bowel obstruction) CULTURE, URINE Routine 05/31/2025 10:13 AM MILK PASTEURIZER CBC WITH AUTO DIFF OH Routine 05/31/2025 9:28 AM MILK PASTEURIZER Malignant neoplasm of overlapping sites of right breast in female, estrogen receptor positive CMP (COMPREHENSIVE METABOLIC PANEL) Routine 05/31/2025 9:28 AM MILK PASTEURIZER Malignant neoplasm of overlapping sites of right breast in female, estrogen receptor positive Carcinosarcoma of body of uterus Chemotherapy-induced neutropenia Diarrhea, unspecified type B12 deficiency Anemia, unspecified type LACTATE DEHYDROGENASE (LD) Routine 05/31/2025 9:28 AM MILK PASTEURIZER Malignant neoplasm of overlapping sites of right breast in female, estrogen receptor positive Carcinosarcoma of body of uterus Chemotherapy-induced neutropenia Diarrhea, unspecified type B12 deficiency Anemia, unspecified type MAGNESIUM (MG) Routine 05/31/2025 9:28 AM MILK PASTEURIZER Malignant neoplasm of overlapping sites of right breast in female, estrogen receptor positive Carcinosarcoma of body of uterus Chemotherapy-induced neutropenia Diarrhea, unspecified type B12 deficiency Anemia, unspecified type CANCER ANTIGEN (CA) 15-3 Routine 05/31/2025 9:28 AM MILK PASTEURIZER Malignant neoplasm of overlapping sites of right breast in female, estrogen receptor positive Carcinosarcoma of body of uterus Chemotherapy-induced neutropenia Diarrhea, unspecified type B12 deficiency Anemia, unspecified type CARCINOEMBRYONIC ANTIGEN (CEA) Routine 05/31/2025 9:28 AM MILK PASTEURIZER Malignant neoplasm of overlapping sites of right breast in female, estrogen receptor positive Carcinosarcoma of body of uterus Chemotherapy-induced neutropenia Diarrhea, unspecified type B12 deficiency Anemia, unspecified type COMPLETE BLOOD COUNT (CBC) WITH DIFF Routine 05/24/2025 9:41 AM MILK PASTEURIZER Malignant neoplasm of overlapping sites of right breast in female, estrogen receptor positive SBO (small bowel obstruction) B12 deficiency Carcinosarcoma of body of uterus Anemia, unspecified type Chemotherapy-induced neutropenia Encounter for immunotherapy LACTATE DEHYDROGENASE (LD) Routine 05/24/2025 9:41 AM MILK PASTEURIZER Malignant neoplasm of overlapping sites of right breast in female, estrogen receptor positive SBO (small bowel obstruction) B12 deficiency Carcinosarcoma of body of uterus Anemia, unspecified type Chemotherapy-induced neutropenia Encounter for immunotherapy CMP (COMPREHENSIVE METABOLIC PANEL) Routine 05/24/2025 9:41 AM MILK PASTEURIZER Malignant neoplasm of overlapping sites of right breast in female, estrogen receptor positive SBO (small bowel obstruction) B12 deficiency Carcinosarcoma of body of uterus Anemia, unspecified type Chemotherapy-induced neutropenia Encounter for immunotherapy MAGNESIUM (MG) Routine 05/24/2025 9:41 AM MILK PASTEURIZER Malignant neoplasm of overlapping sites of right breast in female, estrogen receptor positive SBO (small bowel obstruction) B12 deficiency Carcinosarcoma of body of uterus Anemia, unspecified type Chemotherapy-induced neutropenia Encounter for immunotherapy CARCINOEMBRYONIC ANTIGEN (CEA) Routine 05/24/2025 9:41 AM MILK PASTEURIZER Malignant neoplasm of overlapping sites of right breast in female, estrogen receptor positive SBO (small bowel obstruction) B12 deficiency Carcinosarcoma of body of uterus Anemia, unspecified type Chemotherapy-induced neutropenia Encounter for immunotherapy CANCER ANTIGEN (CA) 15-3 Routine 05/24/2025 9:41 AM MILK PASTEURIZER Malignant neoplasm of overlapping sites of right breast in female, estrogen receptor positive SBO (small bowel obstruction) B12 deficiency Carcinosarcoma of body of uterus Anemia, unspecified type Chemotherapy-induced neutropenia Encounter for immunotherapy TEMPUS XF Routine 05/10/2025 9:55 AM CDT Carcinosarcoma of body of uterus CBC WITH AUTO DIFF OH Routine 05/10/2025 9:02 AM CDT Carcinosarcoma of body of uterus CMP (COMPREHENSIVE METABOLIC PANEL) Routine 05/10/2025 9:02 AM CDT SBO (small bowel obstruction) Malignant neoplasm of overlapping sites of right breast in female, estrogen receptor positive Carcinosarcoma of body of uterus Chemotherapy-induced neutropenia Encounter for immunotherapy Diarrhea, unspecified type LACTATE DEHYDROGENASE (LD) Routine 05/10/2025 9:02 AM CDT SBO (small bowel obstruction) Malignant neoplasm of overlapping sites of right breast in female, estrogen receptor positive Carcinosarcoma of body of uterus Chemotherapy-induced neutropenia Encounter for immunotherapy Diarrhea, unspecified type MAGNESIUM (MG) Routine 05/10/2025 9:02 AM CDT SBO (small bowel obstruction) Malignant neoplasm of overlapping sites of right breast in female, estrogen receptor positive Carcinosarcoma of body of uterus Chemotherapy-induced neutropenia Encounter for immunotherapy Diarrhea, unspecified type CARCINOEMBRYONIC ANTIGEN (CEA) Routine 05/10/2025 9:02 AM CDT SBO (small bowel obstruction) Malignant neoplasm of overlapping sites of right breast in female, estrogen receptor positive Carcinosarcoma of body of uterus Chemotherapy-induced neutropenia Encounter for immunotherapy Diarrhea, unspecified type CANCER ANTIGEN (CA) 15-3 Routine 05/10/2025 9:02 AM CDT SBO (small bowel obstruction) Malignant neoplasm of overlapping sites of right breast in female, estrogen receptor positive Carcinosarcoma of body of uterus Chemotherapy-induced neutropenia Encounter for immunotherapy Diarrhea, unspecified type CBC WITH AUTO DIFF OH Routine 05/03/2025 8:40 AM CDT Malignant neoplasm of overlapping sites of right breast in female, estrogen receptor positive SBO (small bowel obstruction) B12 deficiency Carcinosarcoma of body of uterus Anemia, unspecified type Chemotherapy-induced neutropenia Encounter for immunotherapy CMP (COMPREHENSIVE METABOLIC PANEL) Routine 05/03/2025 8:40 AM CDT Malignant neoplasm of overlapping sites of right breast in female, estrogen receptor positive SBO (small bowel obstruction) B12 deficiency Carcinosarcoma of body of uterus Anemia, unspecified type Chemotherapy-induced neutropenia Encounter for immunotherapy LACTATE DEHYDROGENASE (LD) Routine 05/03/2025 8:40 AM CDT Malignant neoplasm of overlapping sites of right breast in female, estrogen receptor positive SBO (small bowel obstruction) B12 deficiency Carcinosarcoma of body of uterus Anemia, unspecified type Chemotherapy-induced neutropenia Encounter for immunotherapy MAGNESIUM (MG) Routine 05/03/2025 8:40 AM CDT Malignant neoplasm of overlapping sites of right breast in female, estrogen receptor positive SBO (small bowel obstruction) B12 deficiency Carcinosarcoma of body of uterus Anemia, unspecified type Chemotherapy-induced neutropenia Encounter for immunotherapy CARCINOEMBRYONIC ANTIGEN (CEA) Routine 05/03/2025 8:40 AM CDT Malignant neoplasm of overlapping sites of right breast in female, estrogen receptor positive SBO (small bowel obstruction) B12 deficiency Carcinosarcoma of body of uterus Anemia, unspecified type Chemotherapy-induced neutropenia Encounter for immunotherapy CANCER ANTIGEN (CA) 15-3 Routine 05/03/2025 8:40 AM CDT Malignant neoplasm of overlapping sites of right breast in female, estrogen receptor positive SBO (small bowel obstruction) B12 deficiency Carcinosarcoma of body of uterus Anemia, unspecified type Chemotherapy-induced neutropenia Encounter for immunotherapy CT CHEST ABDOMEN AND PELVIS W CONTRAST Routine 04/30/2025 8:19 AM CDT Malignant neoplasm of overlapping sites of right breast in female, estrogen receptor positive SBO (small bowel obstruction) B12 deficiency Carcinosarcoma of body of uterus Anemia, unspecified type Chemotherapy-induced neutropenia Encounter for immunotherapy CBC WITH AUTO DIFF OH Routine 04/19/2025 8:35 AM CDT Malignant neoplasm of overlapping sites of right breast in female, estrogen receptor positive CMP (COMPREHENSIVE METABOLIC PANEL) Routine 04/19/2025 8:35 AM CDT Malignant neoplasm of overlapping sites of right breast in female, estrogen receptor positive Chemotherapy-induced neutropenia Carcinosarcoma of body of uterus LACTATE DEHYDROGENASE (LD) Routine 04/19/2025 8:35 AM CDT Malignant neoplasm of overlapping sites of right breast in female, estrogen receptor positive Chemotherapy-induced neutropenia Carcinosarcoma of body of uterus MAGNESIUM (MG) Routine 04/19/2025 8:35 AM CDT Malignant neoplasm of overlapping sites of right breast in female, estrogen receptor positive Chemotherapy-induced neutropenia Carcinosarcoma of body of uterus CARCINOEMBRYONIC ANTIGEN (CEA) Routine 04/19/2025 8:35 AM CDT Malignant neoplasm of overlapping sites of right breast in female, estrogen receptor positive Chemotherapy-induced neutropenia Carcinosarcoma of body of uterus CANCER ANTIGEN (CA) 15-3 Routine 04/19/2025 8:35 AM CDT Malignant neoplasm of overlapping sites of right breast in female, estrogen receptor positive Chemotherapy-induced neutropenia Carcinosarcoma of body of uterus CBC WITH AUTO DIFF OH Routine 04/12/2025 9:08 AM CDT Malignant neoplasm of overlapping sites of right breast in female, estrogen receptor positive (HCC) CMP (COMPREHENSIVE METABOLIC PANEL) Routine 04/12/2025 9:08 AM CDT Malignant neoplasm of overlapping sites of right breast in female, estrogen receptor positive (HCC) SBO (small bowel obstruction) (HCC) B12 deficiency MAGNESIUM (MG) Routine 04/12/2025 9:08 AM CDT Malignant neoplasm of overlapping sites of right breast in female, estrogen receptor positive (HCC) SBO (small bowel obstruction) (HCC) B12 deficiency from Last 3 Months Results * (ABNORMAL) CBC WITH AUTO DIFF OH (06/21/2025 9:52 AM MILK PASTEURIZER) Only the most recent of6 resultswithin the time period is included. WBC 8.5 4.0 - 10.0 10*3/uL CANCER INFORMATION SECURITY CONSULTANT [facility] HGB 10.8(L) 11.2 - 15.7 g/dL CANCER INFORMATION SECURITY CONSULTANT [facility] HCT 34.0(L) 34.1 - 44.9 % CANCER INFORMATION SECURITY CONSULTANT [facility] PLT 499(H) 163 - 369 10*3/uL CANCER INFORMATION SECURITY CONSULTANT [facility] MPV 9.4 9.4 - 12.4 fL CANCER INFORMATION SECURITY CONSULTANT [facility] RBC 3.72(L) 3.93 - 5.22 10*6/uL CANCER INFORMATION SECURITY CONSULTANT [facility] MCV 91 79 - 95 fL CANCER INFORMATION SECURITY CONSULTANT [facility] MCH 29.0 25.6 - 32.2 pg CANCER INFORMATION SECURITY CONSULTANT [facility] MCHC 31.8(L) 32.2 - 36.5 g/dL CANCER INFORMATION SECURITY CONSULTANT [facility] RDW 15.1(H) 11.6 - 14.4 % CANCER INFORMATION SECURITY CONSULTANT [facility] Neutrophils % 58.2 36.0 - 66.0 % CANCER INFORMATION SECURITY CONSULTANT [facility] Lymphocytes % 26.2 19.0 - 40.0 % CANCER INFORMATION SECURITY CONSULTANT [facility] Monocytes % 6.1 4.1 - 12.1 % CANCER INFORMATION SECURITY CONSULTANT [facility] Eosinophils % 7.0(H) 0.0 - 3.5 % CANCER INFORMATION SECURITY CONSULTANT [facility] Basophils % 1.4(H) 0.0 - 1.0 % [facility] INFORMATION SECURITY CONSULTANT [facility] Absolute Neutrophils 4.9 1.4 - 6.6 10*3/uL [facility] INFORMATION SECURITY CONSULTANT [facility] Absolute Lymphocytes 2.2 0.8 - 4.0 10*3/uL [facility] INFORMATION SECURITY CONSULTANT [facility] Absolute Monocytes 0.5 0.2 - 1.2 10*3/uL [facility] Absolute Eosinophils 0.6(H) 0.0 - 0.4 10*3/uL [facility] INFORMATION SECURITY CONSULTANT [facility] Absolute Basophils 0.1 0.0 - 0.1 10*3/uL [facility] 06/21/2025 9:52 AM MILK PASTEURIZER Reymundo Arnold DO LAB SEND OUTS Final Result CANCER INFORMATION SECURITY CONSULTANT [facility] Cancer Care Specialists [facility] [place] [address], * (ABNORMAL) CMP (COMPREHENSIVE METABOLIC PANEL) (06/21/2025 9:52 AM MILK PASTEURIZER) Only the most recent of8 resultswithin the time period is included. Glucose 156(H) 70 - 105 mg/dL [facility] Blood Urea Nitrogen 18 7 - 25 mg/dL [facility] Creatinine 0.9 0.6 - 1.2 mg/dL [facility] Sodium 141 136 - 145 mEq/L [facility] Potassium 3.8 3.5 - 5.1 mEq/L [facility] Chloride 105 98 - 107 mEq/L [facility] Bicarbonate 24 21 - 31 mEq/L [facility] Total Bilirubin 0.3 0.3 - 1.0 mg/dL [facility] Alk. Phosphatase 87 34 - 104 U/L [facility] Aspartate Aminotransferase 12(L) 13 - 39 U/L [facility] Alanine Aminotransferase 15 7 - 52 U/L [facility] Total Protein 6.2(L) 6.4 - 8.9 g/dL [facility] Albumin 4.1 3.5 - 5.7 g/dL [facility] Calcium 9.1 8.6 - 10.3 mg/dL [facility] Anion Gap 15.8(H) 7.0 - 15.0 mEq/L [facility] Globulin 2.1 2.0 - 3.5 g/dL [facility] EGFR 71 >60 ml/min/1. 73m2 CANCER INFORMATION SECURITY CONSULTANT [facility] Comment: This eGFR is calculated using 2020 CKD-EPI Creatinine equation without race modifier based on the NKF-ASN task force recommendations Equation: uGKQ=346*min(SCr/k,1)a*max(SCr/k,1)-1.200*0.9938Age*1.012 (if female), where SCr is serum creatinine, k is 0.7 for females and 0.9 for males, and a is -0.241 for females and -0.302 for males 06/21/2025 9:52 AM MILK PASTEURIZER us Reymundo Arnold DO CHEMISTRY ORDERABLES Final Res ult CANCER INFORMATION SECURITY CONSULTANT [facility] Cancer Care Specialists [facility] [place] [address], * (ABNORMAL) COMPLETE BLOOD COUNT (CBC) WITH DIFF (06/14/2025 9:38 AM MILK PASTEURIZER) Only the most recent of2 resultswithin the time period is included. WBC 13.7(H) 4.0 - 10.0 10*3/uL [facility] HGB 10.7(L) 11.2 - 15.7 g/dL [facility] HCT 34.4 34.1 - 44.9 % CANCER INFORMATION SECURITY CONSULTANT [facility] PLT 369 163 - 369 10*3/uL [facility] MPV 9.9 9.4 - 12.4 fL CANCER INFORMATION SECURITY CONSULTANT [facility] RBC 3.70(L) 3.93 - 5.22 10*6/uL CANCER INFORMATION SECURITY CONSULTANT [facility] MCV 93 79 - 95 fL CANCER INFORMATION SECURITY CONSULTANT [facility] MCH 28.9 25.6 - 32.2 pg CANCER INFORMATION SECURITY CONSULTANT [facility] MCHC 31.1(L) 32.2 - 36.5 g/dL CANCER INFORMATION SECURITY CONSULTANT [facility] RDW 15.8(H) 11.6 - 14.4 % CANCER INFORMATION SECURITY CONSULTANT [facility] Absolute Neutrophil Count 11,371 cells/uL CANCER CENT ER SPECIALISTS [facility] Absolute Seg Count 10,960(H) 1,440 - 6,600 cells/uL CANCER INFORMATION SECURITY CONSULTANT [facility] Absolute Band Count 411 0 - 800 cells/uL CANCER INFORMATION SECURITY CONSULTANT [facility] Absolute Lymph Count 1,507 760 - 4,000 cells/uL CANCER INFORMATION SECURITY CONSULTANT [facility] Absolute [place] Count 548 160 - 1,200 cells/uL CANCER INFORMATION SECURITY CONSULTANT [facility] Absolute Eos Count 274 0 - 300 cells/uL CANCER INFORMATION SECURITY CONSULTANT [facility] Segmented Neutrophils 80(H) 36 - 66 % CANCER INFORMATION SECURITY CONSULTANT [facility] Band Neutrophils 3 0 - 8 % CAN CER INFORMATION SECURITY CONSULTANT [facility] Lymphocytes 11(L) 19 - 40 % CANCER C [facility] Monocytes 4 4 - 12 % CANCER [facility] Eosinophils 2 0 - 3 % CANCER C [facility] SPECIAL[facility] WBC Estimate High CANCER INFORMATION SECURITY CONSULTANT [facility] Platelet Estimate Normal CANCER INFORMATION SECURITY CONSULTANT [facility] RBC Morphology Abnormal CANCE R INFORMATION SECURITY CONSULTANT [facility] Anisocytosis 1+ CANCER INFORMATION SECURITY CONSULTANT [facility] Blood 06/14/2025 9:38 AM MILK PASTEURIZER Narrative CANCER INFORMATION SECURITY CONSULTANT [facility] - 06/14/2025 2:36 PM MILK PASTEURIZER Release to patient->Immediate us Reymundo Arnold DO HEMATOLOGY ORDERABLES Final Re sult CANCER INFORMATION SECURITY CONSULTANT [facility] Cancer Care Specialists [facility] [place] [address], * (ABNORMAL) CARCINOEMBRYONIC ANTIGEN (CEA) (06/14/2025 9:38 AM MILK PASTEURIZER) Only the most recent of6 resultswithin the time period is included. CEA 38.7(H) 0.0 - 5.0 ng/mL CANCER INFORMATION SECURITY CONSULTANT [facility] Comment: Sofi Paramagnetic Particle Chemiluminescent Immunoassay Method Blood 06/14/2025 9:38 AM MILK PASTEURIZER Narrative CANCER INFORMATION SECURITY CONSULTANT [facility] - 06/14/2025 2:30 PM MILK PASTEURIZER Release to patient->Immediate us Reymundo Arnold DO CHEMISTRY ORDERABLES Final Res ult Performing Organization Address City/[facility]/ZIP Co de Phone Number CANCER INFORMATION SECURITY CONSULTANT [facility] Cancer [facility] Special[facility] [place] [address] [place] [address], [place] [phone] * (ABNORMAL) CANCER ANTIGEN (CA) 15-3 (06/14/2025 9:38 AM MILK PASTEURIZER) Only the most recent of6 resultswithin the time period is included. CA15-3 214.8(H) 0.0 - 31.3 U/mL CANCER INFORMATION SECURITY CONSULTANT [facility] Comment: Sofi Paramagnetic Particle Chemiluminescent Immunoassay Method Blood 06/14/2025 9:38 AM MILK PASTEURIZER Narrative [facility] - 06/14/2025 2:30 PM MILK PASTEURIZER Release to patient->Immediate us Reymundo Arnold DO CHEMISTRY ORDERABLES Final Res ult Performing Organization Address [facility] Co de Phone Number CANCER INFORMATION SECURITY CONSULTANT [facility] Cancer [facility] [place] [address] [place] [address], [place] [phone] * (ABNORMAL) URINALYSIS WITH MICROSCOPIC [place] (05/31/2025 10:13 AM MILK PASTEURIZER) Urine Color Yellow Straw-Yel low CANCER INFORMATION SECURITY CONSULTANT [facility] Urine Clarity Turbid(A) Clear CANCER INFORMATION SECURITY CONSULTANT [facility] Urine Glucose NEG NEG mg/dL CANCER INFORMATION SECURITY CONSULTANT [facility] Urine Bilirubin NEG NEG mg/dL CANC ER INFORMATION SECURITY CONSULTANT [facility] Urine Ketones NEG NEG mg/dL CANCER INFORMATION SECURITY CONSULTANT [facility] Urine Specific [place] 1.030(H) 1.015 - 1.020 CANCER INFORMATION SECURITY CONSULTANT [facility] Urine Blood 3+(A) NEG mg/L CANCER C [facility]TER [facility] Urine pH 6.0 5.0 - 8.0 [pH] CANCER INFORMATION SECURITY CONSULTANT [facility] Urine Protein 3+(A) NEG mg/dL CANCER INFORMATION SECURITY CONSULTANT [facility] Urine Urobilinogen 0.2 0.2 - 1.0 mg/dL CANCER INFORMATION SECURITY CONSULTANT [facility] Urine Nitrite NEG NEG CANCER INFORMATION SECURITY CONSULTANT [facility] Urine Leukocytes 3+(A) NEG CAN CER INFORMATION SECURITY CONSULTANT [facility] Urine Epithelial Cells None None,Rare ,Few /LPF CANCER INFORMATION SECURITY CONSULTANT [facility] Urine Mucus None None /LPF CANCER C [facility]TER [facility] Urine Cast None None /LPF CANCER CE NTER [facility] Urine Bacteria Many(A) None /HPF CANCE R INFORMATION SECURITY CONSULTANT [facility] Urine Crystal None None /LPF CANCER INFORMATION SECURITY CONSULTANT [facility] Urine White Blood Cells Innum(A) 0 - 4 /HPF CANCER INFORMATION SECURITY CONSULTANT [facility] Urine Red Blood Cells 11-25(A) 0 - 2 /HPF [facility] INFORMATION SECURITY CONSULTANT [facility] 05/31/2025 10:1 3 AM MILK PASTEURIZER Narrative [facility] INFORMATION SECURITY CONSULTANT [facility] - 05/31/2025 10:44 AM MILK PASTEURIZER Release to patient->Immediate Reymundo Arnold DO LAB SEND OUTS Final Result CANCER INFORMATION SECURITY CONSULTANT [facility] [place] [address], * (ABNORMAL) CULTURE, URINE (05/31/2025 10:13 AM MILK PASTEURIZER) URINE CULTURE, ROUTINE FINAL REPORT(A) CANCER INFORMATION SECURITY CONSULTANT [facility] RESULT 1 CITROBACTER KOSERI(A) CANCER INFORMATION SECURITY CONSULTANT [facility] Comment: SOME ENTEROBACTERALES MAY DEVELOP RESISTANCE DURING THERAPY WITH THIRD-GENERATION CEPHALOSPORINS. THIS RESISTANCE IS MOST COMMONLY SEEN WITH CITROBACTER FREUNDII COMPLEX, ENTEROBACTER CLOACAE COMPLEX, AND KLEBSIELLA AEROGENES. ISOLATES THAT INITIALLY TEST SUSCEPTIBLE MAY BECOME RESISTANT WITHIN A FEW DAYS AFTER INITIATION OF THERAPY. TESTING SUBSEQUENT ISOLATES MAY BE WARRANTED IF CLINICALLY INDICATED. (CLSI [id number]) GREATER THAN 100,000 COLONY FORMING UNITS PER ML ANTIMICROBIAL SUSCEPTIBILITY COMMENT CANCER INFORMATION SECURITY CONSULTANT [facility] Comment: S = SUSCEPTIBLE; I = INTERMEDIATE; R = RESISTANT P = POSITIVE; N = NEGATIVE MICS ARE EXPRESSED IN MICROGRAMS PER ML ANTIBIOTIC RSLT#1 RSLT#2 RSLT#3 RSLT#4 AMOXICILLIN/CLAVULANIC ACID R AMPICILLIN R CEFAZOLIN R CEFEPIME S CEFOXITIN R CEFTRIAXONE R CIPROFLOXACIN S ERTAPENEM S GENTAMICIN S LEVOFLOXACIN S MEROPENEM S NITROFURANTOIN S PIPERACILLIN/TAZOBACTAM I TETRACYCLINE S TOBRAMYCIN S TRIMETHOPRIM/SULFA R 05/31/2025 10:1 3 AM MILK PASTEURIZER [facility] - 06/04/2025 3:09 PM MILK PASTEURIZER TESTING PERFORMED AT: [] [facility], [address] [place] [address], [id number], PHONE: [phone], TABLET MAKING MACHINE OPERATOR: COURTNEY GLEASON, PHD Reymundo Arnold DO MICROBIOLOGY - GENERAL ORDERAB LES Final Result Performing Organization Address [facility] Co de Phone Number [facility] [place] [address], * (ABNORMAL) MAGNESIUM (MG) (05/31/2025 9:28 AM MILK PASTEURIZER) Only the most recent of6 resultswithin the time period is included. Magnesium 1.8(L) 1.9 - 2.7 mg/dL [facility] Blood 05/31/2025 9:28 AM MILK PASTEURIZER [facility] - 05/31/2025 10:22 AM MILK PASTEURIZER Release to patient->Immediate Caroline Avila GAS DISTRIBUTION AND EMERGENCY CLERK, PHYSICIAN PRESIDENT CHEMISTRY ORDERAB LES Final Result Performing Organization Address City/[facility] Co de Phone Number [facility] Cancer Care [address] [address], * (ABNORMAL) LACTATE DEHYDROGENASE (LD) (05/31/2025 9:28 AM MILK PASTEURIZER) Only the most recent of5 resultswithin the time period is included. LDH 120(L) 140 - 271 U/L [facility] Blood 05/31/2025 9:28 AM MILK PASTEURIZER Narrative CANCER INFORMATION SECURITY CONSULTANT [facility] - 05/31/2025 10:22 AM MILK PASTEURIZER Release to patient->Immediate us Caroline Avila APRN, DELIO CHEMISTRY ORDERAB LES Final Result CANCER INFORMATION SECURITY CONSULTANT [facility] [place] [address], * [facility] (05/10/2025 9:55 AM CDT) Reason for Study To identify mutations relevant to patient's cancer. 05/18/2025 7:08 PM MILK PASTEURIZER [facility] Genetic Diseases Assessed Cancer 05/18/2025 7:08 PM MILK PASTEURIZER [facility] Description of Ranges of DNA Sequences Examined 523 gene liquid biopsy 05/18/2025 7:08 PM MILK PASTEURIZER [facility] Overall Interpretation positive 05/18/2025 7:08 PM MILK PASTEURIZER [facility] [email or web address] 05/18/2025 7:08 PM MILK PASTEURIZER [facility] Comment:[facility] link Low Coverage Regions CARM1, CUL4A, DNMT1, FANCC, HDAC2, KDM5D, MAPK1, MAPK3, MSH3, NFE2L2, NOTCH2, PHLPP2, PIK3R2, PMS1, PTPRT, RAD51C, RHOA, RXRA, SDHAF2, TERT, TGFBR1, TOP1, TP63, ZNRF3 05/18/2025 7:08 PM MILK PASTEURIZER [facility] Trial Count 1 05/18/2025 7:08 PM MILK PASTEURIZER [facility] Trial 1: Matched criteria Clinical Trial NCT ID: [id number] Clinical Trial Title: A Bjikw-Aw-Dosj n, Phase 1 Study Evaluating Oral TACC3 PPI Inhibitor, AO-252, in Advanced Solid Tumors With or Without Brain Metastases Clinical Trial URL: [email or web address] [email or web address]/[email or web address] [id number] Clinical Phase: Phase 1 Clinical Trial Matches: 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 05/18/2025 7:08 PM MILK PASTEURIZER [facility] Blood Sub-Q Port Venou s Access Device (Medi-Port, Implanted Port) / Unknown 05/10/2025 9:55 AM CDT 05/10/2025 9:55 AM CDT Narrative This result has genomic variants that were not included in this document. us Reymundo Arnold DO MOLECULAR/GENOMIC ORDERABLES F inal Result [facility] [address], [address] [place] [address], * CT CHEST ABDOMEN AND PELVIS W CONTRAST (04/30/2025 8:19 AM CDT) Anatomical Region Laterality Modality Chest, Abdomen, Pelvis N/A Computed Tomography Narrative 04/30/2025 9:31 AM CDT EXAMINATION: CT CHEST ABDOMEN AND PELVIS W CONTRAST 04/30/2025 INDICATIONS: Malignant neoplasm of overlapping sites of right female breast. Right breast cancer 2019 with progression January 2023, right ovarian uterine metastases. Chest wall radiation 2019. Status post right mastectomy. Currently undergoing treatment. Cough. Assess treatment response. COMPARISON: CT chest abdomen pelvis 01/29/2025 as well as exams dating back to 12/13/2020. TECHNIQUE: Postcontrast CT images of the chest abdomen, and pelvis were obtained following the intravenous administration of 100 cc Omnipaque without evidence of adverse reaction. Multiplanar and MIP reconstructions were created. A dose lowering technique was used for this procedure, which may include, but is not limited to, dose reduction technique(s), automated exposure control techniques, use of iterative reconstruction techniques, and ALARA (as low as reasonably achievable) or ALARA/IMAGE Gently techniques. FINDINGS: Chest: Cardiovascular: Left chest wall Dbdxza-T-Oozn. Normal heart size. No significant pericardial effusion. Evaluation for coronary artery calcifications is limited by motion. Thoracic aorta is normal in caliber. Pulmonary: 7 mm nodule of the anterolateral right lower lobe appears to have minimally enlarged (series 2, image 179). Additional tiny pulmonary nodules appear unchanged. No significant consolidation or pleural effusion. There is mucous plugging in the right lower lobe. Lymphatics: Postsurgical changes of the right axilla without adenopathy. Prominent descending periaortic lymph node is unchanged. Thyroid: Calcified nodule of the isthmus again seen. Musculoskeletal: Postsurgical changes of right mastectomy with reconstruction. Sclerosis of the right T10 pedicle is unchanged. There are right anterior 4th through 6th rib fractures with some sclerosis suggestive of healing, new since January. Sclerotic focus of the right posterior 9th rib is unchanged. Abdomen and pelvis: Hepatobiliary: Pneumobilia is redemonstrated. Status post cholecystectomy. The pancreas is unremarkable. No significant biliary ductal dilatation is noted. : Adrenal glands are unremarkable. Lobulated renal contours. Tiny focus of hypoattenuation of the lower pole of the left kidney is too small to characterize, appears unchanged. There are bilateral ureteral stents in place. Bilateral renal pelvic and ureteral urothelial thickening again noted, most likely inflammatory. No hydronephrosis. The urinary bladder is not well distended with mild circumferential wall thickening again noted. Status post hysterectomy and bilateral oophorectomy. The vaginal cuff appears unchanged with no new or enlarging soft tissue nodularity appreciated. GI: Circumferential rectal wall thickening is redemonstrated, may be treatment related. There is abnormal circumferential wall thickening and enhancement of the cecum which was present previously as well (series 604, image 45, series 3, image 104). The appendix is thought to be unremarkable. The stomach is not well distended though appears unremarkable. There are fluid-filled loops of small bowel in the right lower quadrant extending to the ileocecal valve. There is some abnormal wall thickening of the terminal ileum (series 3, image 102). No convincing evidence of small-bowel obstruction. No free intraperitoneal fluid or air is appreciated. There is omental fatty infiltration as well as some peritoneal thickening in the pelvis, similar to prior, could be secondary to carcinomatosis. Lymphatics: The spleen is unremarkable. Prominent right inguinal lymph node is unchanged. No developing lymphadenopathy is appreciated in the abdomen or pelvis. Vascular: Atherosclerotic plaquing with no abdominal aortic aneurysm. Musculoskeletal: Small fat containing ventral hernia. Foci of subcutaneous fatty infiltration in the gluteal regions bilaterally again seen, most likely injection sites. Sclerosis of the left sacrum and iliac bone centered about the sacroiliac joint is similar to prior. IMPRESSION 1. A 7 mm right lower lobe pulmonary nodule appears to have minimally enlarged and is indeterminate. 2. Postsurgical changes of the right breast and axilla without evidence of local recurrence of malignancy. 3. Status post hysterectomy and bilateral salpingo-oophorectomy without evidence of local recurrence of malignancy at the vaginal cuff. 4. Findings which could be secondary to peritoneal carcinomatosis again seen. 5. Abnormal wall thickening and enhancement of the cecum and terminal ileum, potentially secondary to ileitis/cecitis though with malignancy/metastatic implants also being a concern. The distal and terminal ileum is fluid filled though without definite evidence of obstruction. Recommend correlation with physical exam findings and GI symptoms. 6. Evidence of healing right anterior 4th through 6th rib fractures. 7. Sclerotic foci of the T10 vertebra, right 9th rib, and left pelvis appear similar to prior. 8. Consider repeat PET-CT. Results discussed with Dr. Arnold by Dr. Rodriguez at the time of dictation via telephone. Electronically signed by: HERMINIA RODRIGUEZ MD Date of Signature: 04/30/2025 09:31:26 Procedure Note Herminia Rodriguez MD - 04/30/2025 EXAMINATION: CT CHEST ABDOMEN AND PELVIS W CONTRAST 04/30/2025 INDICATIONS: Malignant neoplasm of overlapping sites of right female breast. Rightbreast cancer 2019 with progression January 2023, right ovarian uterinemetastases. Chest wall radiation 2019. Status post right mastectomy.Currently undergoing treatment. Cough. Assess treatment response. COMPARISON: CT chest abdomen pelvis 01/29/2025 as well as exams dating back to12/13/2020. TECHNIQUE: Postcontrast CT images of the chest abdomen, and pelvis were obtainedfollowing the intravenous administration of 100 cc Omnipaque withoutevidence of adverse reaction. Multiplanar and MIP reconstructions werecreated. A dose lowering technique was used for this procedure, which may include,but is not limited to, dose reduction technique(s), automated exposurecontrol techniques, use of iterative reconstruction techniques, and ALARA(as low as reasonably achievable) or ALARA/IMAGE Gently techniques. FINDINGS: Chest: Cardiovascular: Left chest wall Ltgdcq-C-Eria. Normal heart size. Nosignificant pericardial effusion. Evaluation for coronary arterycalcifications is limited by motion. Thoracic aorta is normal incaliber. Pulmonary: 7 mm nodule of the anterolateral right lower lobe appears tohave minimally enlarged (series 2, image 179). Additional tiny pulmonarynodules appear unchanged. No significant consolidation or pleuraleffusion. There is mucous plugging in the right lower lobe. Lymphatics: Postsurgical changes of the right axilla without adenopathy.Prominent descending periaortic lymph node is unchanged. Thyroid: Calcified nodule of the isthmus again seen. Musculoskeletal: Postsurgical changes of right mastectomy withreconstruction. Sclerosis of the right T10 pedicle is unchanged. Thereare right anterior 4th through 6th rib fractures with some sclerosissuggestive of healing, new since January. Sclerotic focus of the rightposterior 9th rib is unchanged. Abdomen and pelvis: Hepatobiliary: Pneumobilia is redemonstrated. Status postcholecystectomy. The pancreas is unremarkable. No significant biliaryductal dilatation is noted. : Adrenal glands are unremarkable. Lobulated renal contours. Tinyfocus of hypoattenuation of the lower pole of the left kidney is too smallto characterize, appears unchanged. There are bilateral ureteral stentsin place. Bilateral renal pelvic and ureteral urothelial thickening againnoted, most likely inflammatory. No hydronephrosis. The urinary bladderis not well distended with mild circumferential wall thickening againnoted. Status post hysterectomy and bilateral oophorectomy. The vaginalcuff appears unchanged with no new or enlarging soft tissue nodularityappreciated. GI: Circumferential rectal wall thickening is redemonstrated, may betreatment related. There is abnormal circumferential wall thickening andenhancement of the cecum which was present previously as well (series 604,image 45, series 3, image 104). The appendix is thought to beunremarkable. The stomach is not well distended though appearsunremarkable. There are fluid-filled loops of small bowel in the rightlower quadrant extending to the ileocecal valve. There is some abnormalwall thickening of the terminal ileum (series 3, image 102). Noconvincing evidence of small-bowel obstruction. No free intraperitonealfluid or air is appreciated. There is omental fatty infiltration as wellas some peritoneal thickening in the pelvis, similar to prior, could besecondary to carcinomatosis. Lymphatics: The spleen is unremarkable. Prominent right inguinal lymphnode is unchanged. No developing lymphadenopathy is appreciated in theabdomen or pelvis. Vascular: Atherosclerotic plaquing with no abdominal aortic aneurysm. Musculoskeletal: Small fat containing ventral hernia. Foci ofsubcutaneous fatty infiltration in the gluteal regions bilaterally againseen, most likely injection sites. Sclerosis of the left sacrum and iliacbone centered about the sacroiliac joint is similar to prior. IMPRESSION 1. A 7 mm right lower lobe pulmonary nodule appears to have minimallyenlarged and is indeterminate. 2. Postsurgical changes of the right breast and axilla without evidence oflocal recurrence of malignancy. 3. Status post hysterectomy and bilateral salpingo-oophorectomy withoutevidence of local recurrence of malignancy at the vaginal cuff. 4. Findings which could be secondary to peritoneal carcinomatosis againseen. 5. Abnormal wall thickening and enhancement of the cecum and terminalileum, potentially secondary to ileitis/cecitis though withmalignancy/metastatic implants also being a concern. The distal andterminal ileum is fluid filled though without definite evidence ofobstruction. Recommend correlation with physical exam findings and GIsymptoms. 6. Evidence of healing right anterior 4th through 6th rib fractures. 7. Sclerotic foci of the T10 vertebra, right 9th rib, and left pelvisappear similar to prior. 8. Consider repeat PET-CT. Results discussed with Dr. Arnold by Dr. Rodriguez at the time of dictationvia telephone. Electronically signed by: HERMINIA RODRIGUEZ MD Date of Signature: 04/30/2025 09:31:26 Earlene Perze APRN, DELIO IMG CT ORDERABLES F inal Result from Last 3 Months Insurance MEDICARE C AETNA Care Teams Land Examiner Relationship Specialty Start Date End Date Provider, None [place] PCP - General 12/13/20 Martin Mann MD 10[address] [facility] [address] [place] [address] 1st Beta Tester Obstetrics & Gynecology 03/23/19 Reymundo Arnold DO [address] [place] [phone] Consulting Physician Oncology 09/26/20 Gregor Canela MD [address] [place] [id number] Gastroenterology 11/14/21 Lizbeth Andres MD [address] [place] [address] General Surgery 11/14/21
--- OUTSIDE RECORDS SUMMARY | 2025-06-30 14:02 | XMS_ITS | Encounter Summary ---
Author Organization [facility] Address [address] [place] [address] Care Team Providers Care Anatomic Pathology Manager Name Role Phone Macho Moody MD Primary Care Provider [phone] Yashira Desai LEARNING ENGINEER Unavailable [phone] Encounter Details Date Type Department Care Team (Late st Contact Info) Description 12/10/2023 Therapy Plan [facility] Infusion Services [address] [place] [address] Reymundo Arnold, DO [address] [phone] Social History Tobacco Use Types Packs/Day Years Used Date Smoking Tobacco: Never Smokeless Tobacco: Never Alcohol Use Standard Drinks/Week Comments Yes 5 (1 standard drink = 0.6 oz pur e alcohol) a week Comments No Sex and Gender Information Value Date Recorded Sex Assigned at Not on file Legal Sex Female 6:32 PM CDT Gender Identity Not on file Sexual Orientation Not on file documented as of this encounter Plan of Treatment Not on file documented as of this encounter Visit Diagnoses Diagnosis Malignant neoplasm of overlapping sites of breast in female, estrogen receptor positive, unspecified laterality (CMS/HCC HHS/HCC)- Primary Malignant neoplasm of breast in female, estrogen receptor positive, unspecified laterality, unspecified site of breast (CMS/HCC HHS/HCC) documented in this encounter Care Teams Anatomic Pathology Manager Relationship Specialty Start Date End Date Macho Moody MD [address] [address] PCP - General FAMILY PRACTICE 09/06/21 Yashira Desai NP [address] [place] [address] Nurse Practitioner Nurse Practitioner Family 05/01/23 documented as of this encounter
--- OUTSIDE RECORDS SUMMARY | 2025-06-30 14:02 | XMS_ITS | Encounter Summary ---
Author Organization [facility] Address [address] [place] [address] Phone Care Team Providers Care Formulation Scientist Name Role Phone Martin Mann MD Unavailable Reymundo Arnold DO Unavailable [phone] Provider, None Primary Care Provider UnavailGregor Gonzáles MD Unavailable [phone] Lizbeth Andres MD Unavailable [phone] Reason for Visit * Reason Comments Medication Refill Encounter Details Date Type Department Care Team (Late st Contact Info) Description 11/15/2023 Refill [facility] [address] [place] [address] Reymundo Arnold, DO [address] [place] [address] Medication Refill Social History Tobacco [...] st Contact Info) Description 07/05/2025 9:15 AM EXHIBITIONS AND COLLECTIONS MANAGER Clinical Support [facility] [address] [phone] 07/05/2025 9:30 AM EXHIBITIONS AND COLLECTIONS MANAGER Office Visit [facility] [address] [phone] Reymundo Arnodl DO [address] [place] [address] documented as of this encounter Visit Diagnoses Diagnosis Malignant neoplasm of overlapping sites of right breast in female, estrogen receptor positive documented in this encounter Additional Health Concerns Assessment Noted Time PHQ-9 Depression Total Score: 0 03/28/20 21 10:03 AM CDT documented as of this encounter Care Teams Formulation Scientist Relationship Specialty Start Date End Date Provider, None [place] PCP - General 12/13/20 Martin Mann MD 1031 [facility] [address] [place] [address] 1st Food And Beverage Intern Obstetrics & Gynecology 03/23/19 Reymundo Arnold DO [address] [place] [phone] Consulting Physician Oncology 09/26/20 Gregor Canela MD [address] [address] Gastroenterology 11/14/21 Lizbeth Andres MD [address] [place] [address] General Surgery 11/14/21 documented as of this encounter
--- OUTSIDE RECORDS SUMMARY | 2025-06-30 14:02 | XMS_ITS | Clinical Summary ---
Author Organization [facility] Address [address] [place] [address] Phone Care Team Providers Care Sheet Tester Name Role Phone Macho Moody MD Primary Care Prov ider Martin Spicer DO Unavailable [phone] Allergies Active Allergy Reactions Criticality Noted Date [...] 2010:Stage IIIB(cT4a, cN3a, cM0, G2, ER: Positive, W[place]: Positive, HER2: Negative) - Signed by Martin [...] on file Legal Sex Female 1:56 PM COMPLIANCE TESTER Gender Identity Female 01/10/2018 11:47 AM CDT [...] Plan of Treatment Not on file Insurance [facility] HMO Care Teams Sheet Tester Relationship Specialty Start Date End Date Macho Moody MD PCP - General Family Medicine 01/10/18 Martin Spicer DO [address] [place] [id number] Medical Oncologist/Forms Analysis Manager Hematology and Oncology 07/30/18
== END 2025-06-30 12:00 | disposition home or self-care (01) ==
LOC: ANHSURGERY 12:03
PROVIDERS: PCP Family Medicine Adolescent Medicine; Visit Provider Urology
DX: N13.30 Unspecified hydronephrosis (principal)
CPT/HCPCS: 81001; 87077; 87086; 87186

== ENCOUNTER 2025-07-01 02:05 | Day surgery (SDC) | payer MEDICARE, SELFPAY ==
--- NOTE | 2025-06-21 06:52 | PM.HPGS ---
History of Present Illness History of Present Illness Consent: Risks, benefits, and alternatives have been discussed and questions answered. Patient agrees to proceed with procedure. 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 This has been managed with chronic indwelling ureteral stents. She now presents for ureteral stent exchange. The last stent exchange was on 2024. Review of Systems Review of Systems: All systems reviewed & are unremarkable except as noted in HPI and below PMFSH Past Medical History Medical History PONV (postoperative nausea and vomiting) DVT (deep venous thrombosis) Metastasis from breast cancer Surgical History Surgical History History of cholecystectomy History of mastectomy History of hysterectomy Family History Family History Mother Family history of diabetes mellitus in first degree relative Social History Social History (Updated 03/10/25 @ 10:22 by Bessy Puentes APRN) Smoking status: Never smoker Second hand tobacco smoke exposure: No Alcohol intake: current Drinks per week: 3 Alcohol use details: SMALL AMOUNT ON WEEKENDS ONLY Substance use: never Substance use type: marijuana Other substance usage details: CBD gummies during chemo, not very often Lack of Transportation: No Lack of Food: Never True Current Housing: I Have Housing Concerned About Future Housing: No Difficulty Paying Gas/Electric Bills: No Difficulty Paying for Meds: No Currently Unemployed: No Education: Master's Degree or Higher Difficulty w/ Childcare or Family Care: No Living arrangements: with family Additional living arrangements comments: [facility] Spiritual care concerns: No Meds Home Medications and Allergies Home Medications ?Medication ?Instructions ?Recorded ?Confirmed ?Type calcium carb-ergocalciferol (vit 1 tablet PO DAILY 02/06/23 03/10/25 History D2) 600 mg calcium-200 unit tablet acetaminophen 325 mg tablet 650 mg PO Q4H Pain (Scale Score 04/03/23 03/10/25 History (Tylenol) 1-3) magnesium oxide 400 mg (241.3 mg 400 mg PO HS 07/29/24 03/10/25 History magnesium) tablet cephalexin 250 mg capsule 250 mg PO DAILY #30 caps 12/24/24 03/10/25 Rx Allergies Allergy/AdvReac Type Severity Reaction Status Date / Time Sulfa (Sulfonamide Allergy Unknown Redness of Verified 03/10/25 09:54 Antibiotics) Skin morphine AdvReac Mild Nausea and Verified 03/10/25 09:54 Vomiting Exam Const: General: no acute distress Resp: Effort & Inspection: normal respiratory effort GI: Inspection: non-distended GI Palp: No abdominal tenderness and No Guarding due to palpation present (GI) Auscultation: normal bowel sounds Assessment and Plan Assessment and plan (1) Bilateral hydronephrosis: Code(s): N13.30 - Unspecified hydronephrosis Status: Acute Assessment and Plan: Cystoscopy, bilateral ureteral stent exchange
[2025-06-24 08:10] VITALS: BMI 25.8
--- NOTE | 2025-06-24 08:29 | PC.NURSE ---
[facility] has started construction of its new state of the art ER which will open Spring 2026. With this, we anticipate parking may be a challenge for some our surgical patients and families. Parking spaces are limited but are available for all Surgical, obstetrics, and ER patients sharing this lot. If you arrive and find you are having a hard time finding a parking space, please note that we understand the challenges, please drive around the hospital and park near Hospital Entrance 1. When you enter this entrance, you can ask a volunteer to direct or take you back to the surgical waiting area to check in. We appreciate everyone?s understanding of these expected challenges while we build for your future. Report to the Outpatient Waiting Room, entrance under the green pavilion located off [address], at time __6:30AM____ on date __07/01/25___. Planned Procedure Time: ___8:30AM____.? Time changes happen often and if your time is changed the preop area will call you the afternoon before. - You and your visitor will be asked to self-screen and do not enter if you have any COVID symptoms. Please call surgeon if you need to reschedule. - A mask is optional within the hospital at this time. Patients may have clear liquids (water, carbonated beverages, clear teas, apple juice) until 3 hours prior to surgery with a maximum of 20 ounces. - No food from midnight until time of surgery and no smoking, or chewing tobacco (or any form of nicotine). No chewing gum, candy or mints. - Infants may have breast milk until 4 hours before surgery, infant formula 6 hours prior to surgery. - Children will be allowed to drink immediately following surgery.? If applicable, please bring a bottle or sippy cup to assist with drinking. Juice, water, soda, and popsicles are readily available.? For infants on formula, please bring formula the day of surgery.? Pacifiers are allowed. Take only the following medications with a SIP of water on the morning of surgery: ___NONE DO NOT STOP ANY OF YOUR OTHER PRESCRIPTION MEDICATIONS PRIOR TO SURGERY EXCEPT THE FOLLOWING Hold all vitamins and supplements for 3 days per anesthesiologist.--LAST DOSE 06/27/25 Medications to discontinue per physician Date to take last dose Please no make-up, nail azerbaijani, hairspray, perfume, deodorant, or body powder the day of surgery.? No jewelry (including any body piercings) or valuables the day of surgery, leave them at home.? Please take a shower or bath the night before, or the morning of, surgery with an antibacterial soap.? Wear comfortable, loose fitting clothing.? Children are encouraged to wear pajamas. - Jewelry must be removed prior to entering the operating room.? Rings and piercings that are not removed may be cut off. - The hospital will not accept responsibility for valuables.? - Please leave all valuables, including medications, at home the day of surgery. If you are going home after surgery, a licensed screw driver operator must drive you home.? - NO public transportation without another adult if you receive anesthesia. - We recommend that an adult stay with you for 24 hours following discharge. - We also recommend that you do not drive, make important decision, drink alcoholic beverages, or take any drugs that were not prescribed by your health care provider for at least 24 hours after your discharge time. For Pediatric surgeries, we recommend two adults accompany the child home. Follow any additional instructions given to you from your surgeon. Telephone instructions given to PATIENT and asked if any additional questions and then verbalized understanding. Patient advised to call surgeon office or pre surgery nurse liaison [phone] if any additional questions.
[2025-07-01] VITALS (10 sets, daily range): BP systolic 107–149; BP diastolic 61–81; PULSE 64–125; RESP 12–20; TEMP 36.2–36.8; O2SAT 98–100
--- NOTE | ~2025-07-01 | XR_ITS ---
EXAMINATION: XR retrograde pyelo w/stent BI DATE: 07/01/2025 08:52 INDICATION: Bilateral intraureteral stent exchange TECHNIQUE: 45 fluoroscopic images of the abdomen and pelvis were obtained procedure performed by Dr. Colmenares. Radiologist was not present for the imaging or procedure. The amount of fluoroscopy time used during this procedure was 1.8 minutes. The dose area product was 1.16 mGym^2. COMPARISON: 12/24/2024 FINDINGS: Communications Intern images demonstrate bilateral intraureteral stents in expected position. There are some surgical clips in the right hemipelvis. Cholecystectomy clips in right upper quadrant. Subsequent images demonstrate contrast injection through the existing right and left internal ureteral stents with opacification of the ureters and bilateral renal collecting systems. There appears be a focal stricture at the right ureteropelvic junction. Final images demonstrate newly placed bilateral intraureteral stents which are in expected position with proximal loop formed in the bilateral renal pelvises and distal loops formed in the bladder. IMPRESSION: 1. Fluoroscopy utilized during bilateral internal ureteral stent exchange with the newly placed stents in expected positions. See procedure note for further detail. Reviewed, dictated and finalized at location A. [facility]IEF IMPRESSION: 1. Fluoroscopy utilized during bilateral internal ureteral stent exchange with the newly placed stents in expected positions. See procedure note for further d etail.
--- OUTSIDE RECORDS SUMMARY | 2025-07-01 02:09 | XMS_ITS | Encounter Summary ---
Author Organization [facility] Address [address] [place] [address] Phone Care Team Providers Care Switch Maker Name Role Phone Martin Mann MD Unavailable Reymundo Arnold DO Unavailable [phone] Provider, None Primary Care Provider UnavailGregor Gonzáles MD Unavailable [phone] Lizbeth Andres MD Unavailable [phone] Reason for Visit * Reason Comments Medication Refill Encounter Details Date Type Department Care Team (Late st Contact Info) Description 03/19/2024 Refill [facility] [address] [place] [address] Earlene Perez, APPLIANCE REPAIR TECHNICIAN, FLATWORK WASHER [address] [place] [phone] Medication Refill Social History Tobacco Use Types [...] st Contact Info) Description 07/05/2025 9:15 AM REGIONAL ACCOUNT DIRECTOR Clinical Support [facility] [address] [phone] 07/05/2025 9:30 AM REGIONAL ACCOUNT DIRECTOR Office Visit [facility] [address] [phone] Reymundo Arnold DO [address] [place] [phone] documented as of this encounter Visit Diagnoses Diagnosis Malignant neoplasm of overlapping sites of right breast in female, estrogen receptor positive documented in this encounter Additional Health Concerns Assessment Noted Time PHQ-9 Depression Total Score: 0 03/28/20 10:03 AM CDT documented as of this encounter Care Teams Switch Maker Relationship Specialty Start Date End Date Provider, None [place] PCP - General 12/13/20 Martin Mann MD [address] [facility] [address] [place] [address] 1st Roller Checker Obstetrics & Gynecology 03/23/19 Reymundo Arnold DO [address] [place] [phone] Consulting Physician Oncology 09/26/20 Gregor Canela MD [address] [address] Gastroenterology 11/14/21 Lizbeth Andres MD [address] [place] [address] General Surgery 11/14/21 documented as of this encounter
--- OUTSIDE RECORDS SUMMARY | 2025-07-01 02:09 | XMS_ITS | Encounter Summary ---
Author Organization [facility] Address [address] [place] [address] Phone Care Team Providers Care Instructor Nurse Name Role Phone Martin Mann MD Unavailable Reymundo Arnold DO Unavailable [phone] Provider, None Primary Care Provider UnavailGregor Gonzáles MD Unavailable [phone] Lizbeth Andres MD Unavailable [phone] Reason for Visit * Reason Comments Medication Refill Encounter Details Date Type Department Care Team (Late st Contact Info) Description 07/24/2022 Refill [facility] [address] [place] [address] Reymundo Arnold, DO [address] [place] [address] Medication Refill Social History Tobacco [...] Coronavirus/COVID-19? No / Unsure 07/13/2022 11:30 AM TOWEL SEWER documented as of this encounter Miscellaneous Notes * Telephone Encounter - Anika Wilson RN - 07/24/2022 9:46 AM CST Refill request from pharmacy. Please fill if appropriate L SEWER documented in this encounter Plan of Treatment Upcoming Encounters Date Type Department Care Team (Late st Contact Info) Description 07/05/2025 9:15 AM TOWEL SEWER Clinical Support [facility] [address] [phone] 07/05/2025 9:30 AM TOWEL SEWER Office Visit [facility] [address] [phone] Reymundo Arnold DO [address] [place] [phone] documented as of this encounter Visit Diagnoses Not on filedocumented in this encounter Additional Health Concerns Assessment Noted Time PHQ-9 Depression Total Score: 0 03/28/20 21 10:03 AM CDT documented as of this encounter Care Teams Instructor Nurse Relationship Specialty Start Date End Date Provider, None [place] PCP - General 12/13/20 Martin Mann MD [address] [address] 1st Metal Bending Machine Operator Obstetrics & Gynecology 03/23/19 Reymundo Arnold DO [address] [place] [phone] Consulting Physician Oncology 09/26/20 Gregor Canela MD [address] [address] Gastroenterology 11/14/21 Lizbeth Andres MD [address] [place] [address] General Surgery 11/14/21 documented as of this encounter
--- OUTSIDE RECORDS SUMMARY | 2025-07-01 02:09 | XMS_ITS | Clinical Summary ---
Author Organization [facility] [employer] Address [address] [place] [address] Care Team Providers Care Shopfitter Name Role Phone Macho Moody MD Primary Care Provider + Source Comments [facility],non-[facility] Affiliates and Associated Physician Practices is amultiple site organization consisting of ambulatory clinics and hospital sitesin [place], [place] and [place]. This disclosure is being madepursuant to the Care Everywhere program and may not contain all information available regarding this patient. Last updated 18.[facility] [employer] Allergies Active Allergy Reactions Criticality Noted Date [...] entire procedure. Procedure Code(s): --- Professional --- 30154, 52, Colonoscopy, flexible; with removal of tumor(s), polyp(s), or other lesion(s) by snare technique 27713, 59,52, Colonoscopy, flexible; with biopsy, single or multiple Diagnosis Code(s): --- Professional --- K56.699, Other intestinal obstruction unspecified as to partial versus complete obstruction K62.1, Rectal polyp R93.3, Abnormal findings on diagnostic imaging of other parts of digestive tract CPT copyright 2019 [employer]. All rights reserved. The codes documented in this report are preliminary and upon dental ceramist assistant review may be revised to meet current compliance requirements. Gregor Hilliard MD 11/10/2021 10:05:26 AM Note Initiated On: 11/10/2021 8:35 AM Number of Addenda: [address] [address] [facility] 11/10/2021 8:35 AM CDT us Gregor Hilliard MD GI PROCEDURE ORDERAB LES Edited Result - Final [facility] from Last 3 Months or Most Recently Relevant to Health Maintenance Insurance AETNA AETNA Care Teams Shopfitter Relationship Specialty Start Date End Date Macho Moody MD [address] [address] PCP - General 02/13/19
--- OUTSIDE RECORDS SUMMARY | 2025-07-01 02:09 | XMS_ITS | Clinical Summary ---
Author Organization [facility] Address [address], [facility] [address] [place] [address] Phone Care Team Providers Care Sales Hunter Name Role Phone Martin Mann MD Unavailable Reymundo Arnold DO Unavailable [phone] Provider, None Primary Care Provider UnavailGregor Gonzáles MD Unavailable [phone] Lizbeth Andres MD Unavailable [phone] Allergies Active Allergy Reactions Criticality Noted Date [...] Department Care Team Description 06/22/2025 9:30 AM TACTICAL AIR [employer] PARTY MANAGER Clinical Support [facility] [address] [address] Nurse, Cc [place] Malignant neoplasm of overlapping sites of right breast in female, estrogen receptor positive (Primary Dx); Carcinosarcoma of body of uterus 06/21/2025 9:45 AM TACTICAL AIR [employer] PARTY MANAGER Office Visit [facility] [address] [address] Sarah Rao APRN, CARDIOPULMONARY TECHNICIAN AND EEG TECH Malignant neoplasm of overlapping sites of right breast in female, estrogen receptor positive (Primary Dx); Encounter for antineoplastic immunotherapy 06/21/2025 9:30 AM TACTICAL AIR CONTR[employer] PARTY MANAGER Clinical Support [facility] [address] [address] Nurse, Cc Of[place] Carcinosarcoma of body of uterus (Primary Dx); Malignant neoplasm of overlapping sites of right breast in female, estrogen receptor positive 06/21/2025 Travel 06/15/2025 1:30 PM TACTICAL AIR [employer] PARTY MANAGER Clinical Support [facility] [address] [address] SBO (small bowel obstruction) (Primary Dx) 06/14/2025 9:45 AM TACTICAL AIR CONTR[employer] PARTY MANAGER Office Visit [facility] [address] [address] Sarah Rao APRN, CARDIOPULMONARY TECHNICIAN AND EEG TECH Malignant neoplasm of overlapping sites of right breast in female, estrogen receptor positive (Primary Dx); Carcinosarcoma of body of uterus; Diarrhea, unspecified type; Encounter for antineoplastic immunotherapy 06/14/2025 9:30 AM TACTICAL AIR CONTROL PARTY MANAGER Clinical Support [facility] [address] [address] Carcinosarcoma of body of uterus (Primary Dx); Malignant neoplasm of overlapping sites of right breast in female, estrogen receptor positive; SBO (small bowel obstruction) 06/14/2025 Travel 06/01/2025 1:00 PM TACTICAL AIR [employer] PARTY MANAGER Clinical Support [facility] [address] [address] Nurse, Cc Of[place] Malignant neoplasm of overlapping sites of right breast in female, estrogen receptor positive (Primary Dx); Carcinosarcoma of body of uterus 05/31/2025 9:30 AM TACTICAL AIR CONTROL PARTY MANAGER Clinical Support [facility] [address] [address] Carcinosarcoma of body of uterus (Primary Dx); Malignant neoplasm of overlapping sites of right breast in female, estrogen receptor positive; Chemotherapy-induced neutropenia; Diarrhea, unspecified type; B12 deficiency; Anemia, unspecified type; SBO (small bowel obstruction) 05/31/2025 9:15 AM TACTICAL AIR CONTR[employer] PARTY MANAGER Office Visit [facility] [address] [address] Reymundo Arnold, DO Malignant neoplasm of overlapping sites of right breast in female, estrogen receptor positive (Primary Dx); SBO (small bowel obstruction) 05/31/2025 Results Follow-Up [facility] [address] [address] Reymundo Arnold, DO URINALYSIS WITH MICROSCOPIC [place], CULTURE, URINE 05/31/2025 Travel 05/24/2025 9:45 AM TACTICAL AIR CONTROL PARTY MANAGER Office Visit [facility] [address] [address] Caroline Avila, DIESEL ENGINEER, CARDIOPULMONARY TECHNICIAN AND EEG TECH Malignant neoplasm of overlapping sites of right breast in female, estrogen receptor positive (Primary Dx); Carcinosarcoma of body of uterus; Chemotherapy-induced neutropenia; Diarrhea, unspecified type; B12 deficiency; Anemia, unspecified type 05/24/2025 9:30 AM TACTICAL AIR CONTR[employer] PARTY MANAGER Clinical Support [facility] [address] [address] Carcinosarcoma of body of uterus (Primary Dx); Malignant neoplasm of overlapping sites of right breast in female, estrogen receptor positive; SBO (small bowel obstruction); B12 deficiency; Anemia, unspecified type; Chemotherapy-induced neutropenia; Encounter for immunotherapy; Iron deficiency anemia, unspecified iron deficiency anemia type 05/24/2025 Travel 05/22/2025 Refill [facility] [address] [address] Reymundo Arnold, DO Medication Refill 05/18/2025 1:00 PM TACTICAL AIR [employer] PARTY MANAGER Clinical Support [facility] [address] [phone] Nurse, Cc Of[place] SBO (small bowel obstruction) (Primary Dx) 05/18/2025 Travel 05/11/2025 1:00 PM CDT Clinical Support [facility] [address] [address] Nurse, Cc [place] Malignant neoplasm of overlapping sites of right breast in female, estrogen receptor positive (Primary Dx); Carcinosarcoma of body of uterus 05/10/2025 9:15 AM CDT Office Visit [facility] [address] [address] Earlene Perez APRN, CARDIOPULMONARY TECHNICIAN AND EEG TECH Malignant neoplasm of overlapping sites of right breast in female, estrogen receptor positive (Primary Dx); SBO (small bowel obstruction); B12 deficiency; Carcinosarcoma of body of uterus; Anemia, unspecified type; Chemotherapy-induced neutropenia; Encounter for immunotherapy 05/10/2025 9:00 AM CDT Clinical Support [facility] [address] [phone] Carcinosarcoma of body of uterus (Primary Dx); SBO (small bowel obstruction); Malignant neoplasm of overlapping sites of right breast in female, estrogen receptor positive; Chemotherapy-induced neutropenia; Encounter for immunotherapy; Diarrhea, unspecified type 05/10/2025 Travel 05/04/2025 Results Follow-Up [facility] [address] [address] Reymundo Arnold, CANCER ANTIGEN (CA) 15-3, CARCINOEMBRYONIC ANTIGEN (CEA), MAGNESIUM (MG), Additional followed-up results: 3 05/03/2025 9:00 AM CDT Office Visit [facility] [address] [phone] Earlene Perez APRN, CARDIOPULMONARY TECHNICIAN AND EEG TECH Malignant neoplasm of overlapping sites of right breast in female, estrogen receptor positive (Primary Dx); SBO (small bowel obstruction); Carcinosarcoma of body of uterus; Chemotherapy-induced neutropenia; Encounter for immunotherapy; Diarrhea, unspecified type 05/03/2025 8:30 AM CDT Clinical Support [facility] [address] [address] Carcinosarcoma of body of uterus (Primary Dx); Malignant neoplasm of overlapping sites of right breast in female, estrogen receptor positive; SBO (small bowel obstruction); B12 deficiency; Anemia, unspecified type; Chemotherapy-induced neutropenia; Encounter for immunotherapy 04/30/2025 8:00 AM CDT Ancillary Procedure [facility] [address] [phone] Malignant neoplasm of overlapping sites of right breast in female, estrogen receptor positive; SBO (small bowel obstruction); B12 deficiency; Carcinosarcoma of body of uterus; Anemia, unspecified type; Chemotherapy-induced neutropenia; Encounter for immunotherapy 04/30/2025 Travel 04/20/2025 9:30 AM CDT Clinical Support [facility] [address] [phone] Nurse, Serena Coburn SBO (small bowel obstruction) (Primary Dx); Malignant neoplasm of overlapping sites of right breast in female, estrogen receptor positive; Carcinosarcoma of body of uterus; Iron deficiency anemia, unspecified iron deficiency anemia type 04/19/2025 8:45 AM CDT Office Visit [facility] [address] [phone] Earlene Perez APRN, CARDIOPULMONARY TECHNICIAN AND EEG TECH Malignant neoplasm of overlapping sites of right breast in female, estrogen receptor positive (Primary Dx); SBO (small bowel obstruction); B12 deficiency; Carcinosarcoma of body of uterus; Anemia, unspecified type; Chemotherapy-induced neutropenia; Encounter for immunotherapy 04/19/2025 8:30 AM CDT Clinical Support [facility] [address] [address] Carcinosarcoma of body of uterus (Primary Dx); Malignant neoplasm of overlapping sites of right breast in female, estrogen receptor positive; Chemotherapy-induced neutropenia 04/19/2025 Travel 04/12/2025 8:45 AM CDT Office Visit [facility] [address] [phone] Caroline Avila APRN, CARDIOPULMONARY TECHNICIAN AND EEG TECH Malignant neoplasm of overlapping sites of right breast in female, estrogen receptor positive (HCC) (Primary Dx); Chemotherapy-induced neutropenia (HCC); Carcinosarcoma of body of uterus (HCC) 04/12/2025 8:30 AM CDT Clinical Support [facility] [address] [address] Carcinosarcoma of body of uterus (HCC) (Primary Dx); Malignant neoplasm of overlapping sites of right breast in female, estrogen receptor positive (HCC); SBO (small bowel obstruction) (HCC); B12 deficiency; Anemia, unspecified type 04/12/2025 Travel from Last 3 Months Immunizations Immunization Administration Dates Next Due Covid-19, Mrna, Lnp-s, Pf, 3 0 Mcg/0.3 Ml Dose (Medigram) 05/16/2021,10/05/2020,09/13/2020 Influenza Vaccine, Quadrivalent, PF 06/18/2023,1 07/18/2021 Influenza,Split Virus,Trivalent,Injectable,PF 05/02/2024 Pneumococcal conjugate PCV20 , polysaccharide [id number] conjugate, adjuvant, PF 06/30/2024 RSV, Recombinant, Protein [...] Comments Blood Pressure 140/100 06/21/2025 10:12 AM TACTICAL AIR CONTR[employer] PARTY MANAGER Pulse 104 06/21/2025 10:12 AM TACTICAL AIR CONTROL PARTY MANAGER Temperature 36.5 C (97.7 F) 06/21/2025 10:12 AM TACTICAL AIR CONTROL PARTY MANAGER Respiratory Rate 18 06/21/2025 10:12 AM TACTICAL AIR CONTROL PARTY MANAGER Oxygen Saturation 98% 06/21/2025 10:12 AM TACTICAL AIR CONTROL PARTY MANAGER Inhaled Oxygen Concentration - - Weight 60.5 kg (133 lb 6.4 oz) 06/21/2025 10:12 AM TACTICAL AIR CONTROL PARTY MANAGER Height 152.4 cm (5') 06/21/2025 10:12 AM TACTICAL AIR CONTROL PARTY MANAGER Body Mass Index 26.05 06/21/2025 10:12 AM TACTICAL AIR CONTROL PARTY MANAGER Plan of Treatment Upcoming Encounters Date Type Department Care Team (Late st Contact Info) Description 07/05/2025 9:15 AM TACTICAL AIR CONTROL PARTY MANAGER Clinical Support [facility] [address] [phone] 07/05/2025 9:30 AM TACTICAL AIR CONTROL PARTY MANAGER Office Visit [facility] [address] [phone] Reymundo Arnold, DO [address] [place] [phone] Health Maintenance Due Date Last Done [...] AUTO DIFF [place] Routine 06/21/2025 9:52 AM TACTICAL AIR CONTROL PARTY MANAGER CMP (COMPREHENSIVE METABOLIC PANEL) Routine 06/21/2025 9:52 AM TACTICAL AIR CONTROL PARTY MANAGER COMPLETE BLOOD COUNT (CBC) WITH DIFF Routine 06/14/2025 9:38 AM TACTICAL AIR CONTROL PARTY MANAGER Malignant neoplasm of overlapping sites of right breast in female, estrogen receptor positive SBO (small bowel obstruction) CMP (COMPREHENSIVE METABOLIC PANEL) Routine 06/14/2025 9:38 AM TACTICAL AIR CONTROL PARTY MANAGER Malignant neoplasm of overlapping sites of right breast in female, estrogen receptor positive SBO (small bowel obstruction) CARCINOEMBRYONIC ANTIGEN (CEA) Routine 06/14/2025 9:38 AM TACTICAL AIR CONTROL PARTY MANAGER Malignant neoplasm of overlapping sites of right breast in female, estrogen receptor positive SBO (small bowel obstruction) CANCER ANTIGEN (CA) 15-3 Routine 06/14/2025 9:38 AM TACTICAL AIR CONTROL PARTY MANAGER Malignant neoplasm of overlapping sites of right breast in female, estrogen receptor positive SBO (small bowel obstruction) URINALYSIS WITH MICROSCOPIC [place] Routine 05/31/2025 10:13 AM TACTICAL AIR CONTROL PARTY MANAGER Malignant neoplasm of overlapping sites of right breast in female, estrogen receptor positive SBO (small bowel obstruction) CULTURE, URINE Routine 05/31/2025 10:13 AM TACTICAL AIR CONTROL PARTY MANAGER CBC WITH AUTO DIFF OH Routine 05/31/2025 9:28 AM TACTICAL AIR CONTROL PARTY MANAGER Malignant neoplasm of overlapping sites of right breast in female, estrogen receptor positive CMP (COMPREHENSIVE METABOLIC PANEL) Routine 05/31/2025 9:28 AM TACTICAL AIR CONTROL PARTY MANAGER Malignant neoplasm of overlapping sites of right breast in female, estrogen receptor positive Carcinosarcoma of body of uterus Chemotherapy-induced neutropenia Diarrhea, unspecified type B12 deficiency Anemia, unspecified type LACTATE DEHYDROGENASE (LD) Routine 05/31/2025 9:28 AM TACTICAL AIR CONTROL PARTY MANAGER Malignant neoplasm of overlapping sites of right breast in female, estrogen receptor positive Carcinosarcoma of body of uterus Chemotherapy-induced neutropenia Diarrhea, unspecified type B12 deficiency Anemia, unspecified type MAGNESIUM (MG) Routine 05/31/2025 9:28 AM TACTICAL AIR CONTROL PARTY MANAGER Malignant neoplasm of overlapping sites of right breast in female, estrogen receptor positive Carcinosarcoma of body of uterus Chemotherapy-induced neutropenia Diarrhea, unspecified type B12 deficiency Anemia, unspecified type CANCER ANTIGEN (CA) 15-3 Routine 05/31/2025 9:28 AM TACTICAL AIR CONTROL PARTY MANAGER Malignant neoplasm of overlapping sites of right breast in female, estrogen receptor positive Carcinosarcoma of body of uterus Chemotherapy-induced neutropenia Diarrhea, unspecified type B12 deficiency Anemia, unspecified type CARCINOEMBRYONIC ANTIGEN (CEA) Routine 05/31/2025 9:28 AM TACTICAL AIR CONTROL PARTY MANAGER Malignant neoplasm of overlapping sites of right breast in female, estrogen receptor positive Carcinosarcoma of body of uterus Chemotherapy-induced neutropenia Diarrhea, unspecified type B12 deficiency Anemia, unspecified type COMPLETE BLOOD COUNT (CBC) WITH DIFF Routine 05/24/2025 9:41 AM TACTICAL AIR CONTROL PARTY MANAGER Malignant neoplasm of overlapping sites of right breast in female, estrogen receptor positive SBO (small bowel obstruction) B12 deficiency Carcinosarcoma of body of uterus Anemia, unspecified type Chemotherapy-induced neutropenia Encounter for immunotherapy LACTATE DEHYDROGENASE (LD) Routine 05/24/2025 9:41 AM TACTICAL AIR CONTROL PARTY MANAGER Malignant neoplasm of overlapping sites of right breast in female, estrogen receptor positive SBO (small bowel obstruction) B12 deficiency Carcinosarcoma of body of uterus Anemia, unspecified type Chemotherapy-induced neutropenia Encounter for immunotherapy CMP (COMPREHENSIVE METABOLIC PANEL) Routine 05/24/2025 9:41 AM TACTICAL AIR CONTROL PARTY MANAGER Malignant neoplasm of overlapping sites of right breast in female, estrogen receptor positive SBO (small bowel obstruction) B12 deficiency Carcinosarcoma of body of uterus Anemia, unspecified type Chemotherapy-induced neutropenia Encounter for immunotherapy MAGNESIUM (MG) Routine 05/24/2025 9:41 AM TACTICAL AIR CONTROL PARTY MANAGER Malignant neoplasm of overlapping sites of right breast in female, estrogen receptor positive SBO (small bowel obstruction) B12 deficiency Carcinosarcoma of body of uterus Anemia, unspecified type Chemotherapy-induced neutropenia Encounter for immunotherapy CARCINOEMBRYONIC ANTIGEN (CEA) Routine 05/24/2025 9:41 AM TACTICAL AIR CONTROL PARTY MANAGER Malignant neoplasm of overlapping sites of right breast in female, estrogen receptor positive SBO (small bowel obstruction) B12 deficiency Carcinosarcoma of body of uterus Anemia, unspecified type Chemotherapy-induced neutropenia Encounter for immunotherapy CANCER ANTIGEN (CA) 15-3 Routine 05/24/2025 9:41 AM TACTICAL AIR CONTROL PARTY MANAGER Malignant neoplasm of overlapping sites of right [...] WITH AUTO DIFF [place] (06/21/2025 9:52 AM TACTICAL AIR CONTROL PARTY MANAGER) Only the most recent of6 resultswithin the time period is included. WBC 8.5 4.0 - 10.0 10*3/uL [facility] HGB 10.8(L) 11.2 - 15.7 g/dL [facility] HCT 34.0(L) 34.1 - 44.9 % [facility] PLT 499(H) 163 - 369 10*3/uL [facility] MPV 9.4 9.4 - 12.4 fL [facility] RBC 3.72(L) 3.93 - 5.22 10*6/uL [facility] MCV 91 79 - 95 fL [facility] MCH 29.0 25.6 - 32.2 pg [facility] MCHC 31.8(L) 32.2 - 36.5 g/dL [facility] RDW 15.1(H) 11.6 - 14.4 % [facility] Neutrophils % 58.2 36.0 - 66.0 % [facility] Lymphocytes % 26.2 19.0 - 40.0 % [facility] Monocytes % 6.1 4.1 - 12.1 % [facility] Eosinophils % 7.0(H) 0.0 - 3.5 % [facility] Basophils % 1.4(H) 0.0 - 1.0 % [facility] SERVICES MANAGER [facility] Absolute Neutrophils 4.9 1.4 - 6.6 10*3/uL [facility] SERVICES MANAGER [facility] Absolute Lymphocytes 2.2 0.8 - 4.0 10*3/uL [facility] SERVICES MANAGER [facility] Absolute Monocytes 0.5 0.2 - 1.2 10*3/uL [facility] Absolute Eosinophils 0.6(H) 0.0 - 0.4 10*3/uL [facility] SERVICES MANAGER [facility] Absolute Basophils 0.1 0.0 - 0.1 10*3/uL [facility] 06/21/2025 9:52 AM TACTICAL AIR CONTROL PARTY MANAGER Reymundo Arnold DO LAB SEND OUTS Final Result [facility] [place] [address], * (ABNORMAL) CMP (COMPREHENSIVE METABOLIC PANEL) (06/21/2025 9:52 AM TACTICAL AIR CONTROL PARTY MANAGER) Only the most recent of8 resultswithin the time period is included. Glucose 156(H) 70 - 105 mg/dL [facility] Blood Urea Nitrogen 18 7 - 25 mg/dL [facility] Creatinine 0.9 0.6 - 1.2 mg/dL [facility] Sodium 141 136 - 145 mEq/L [facility] Potassium 3.8 3.5 - 5.1 mEq/L [facility] Chloride 105 98 - 107 mEq/L [facility] Bicarbonate 24 21 - 31 mEq/L [facility] Total Bilirubin 0.3 0.3 - 1.0 mg/dL [facility] Alk. Phosphatase 87 34 - 104 U/L [facility] Aspartate Aminotransferase 12(L) 13 - 39 U/L [facility] Alanine Aminotransferase 15 7 - 52 U/L [facility] Total Protein 6.2(L) 6.4 - 8.9 g/dL [facility] Albumin 4.1 3.5 - 5.7 g/dL [facility] Calcium 9.1 8.6 - 10.3 mg/dL [facility] Anion Gap 15.8(H) 7.0 - 15.0 mEq/L [facility] Globulin 2.1 2.0 - 3.5 g/dL [facility] EGFR 71 >60 ml/min/1. 73m2 [facility] Comment: This eGFR is calculated using 2020 CKD-EPI Creatinine equation without race modifier based on the NKF-ASN task force recommendations Equation: lBJY=262*min(SCr/k,1)a*max(SCr/k,1)-1.200*0.9938Age*1.012 (if female), where SCr is serum creatinine, k is 0.7 for females and 0.9 for males, and a is -0.241 for females and -0.302 for males 06/21/2025 9:52 AM TACTICAL AIR CONTROL PARTY MANAGER us Reymundo Arnold DO CHEMISTRY ORDERABLES Final Res ult [facility] [place] [address], * (ABNORMAL) COMPLETE BLOOD COUNT (CBC) WITH DIFF (06/14/2025 9:38 AM TACTICAL AIR CONTROL PARTY MANAGER) Only the most recent of2 resultswithin the time period is included. WBC 13.7(H) 4.0 - 10.0 10*3/uL [facility] HGB 10.7(L) 11.2 - 15.7 g/dL [facility] HCT 34.4 34.1 - 44.9 % [facility] PLT 369 163 - 369 10*3/uL [facility] MPV 9.9 9.4 - 12.4 fL [facility] RBC 3.70(L) 3.93 - 5.22 10*6/uL [facility] MCV 93 79 - 95 fL [facility] MCH 28.9 25.6 - 32.2 pg [facility] MCHC 31.1(L) 32.2 - 36.5 g/dL [facility] RDW 15.8(H) 11.6 - 14.4 % [facility] Absolute Neutrophil Count 11,371 cells/uL [facility] Absolute Seg Count 10,960(H) 1,440 - 6,600 cells/uL [facility] Absolute Band Count 411 0 - 800 cells/uL [facility] Absolute Lymph Count 1,507 760 - 4,000 cells/uL [facility] Absolute [place] Count 548 160 - 1,200 cells/uL [facility] Absolute Eos Count 274 0 - 300 cells/uL [facility] Segmented Neutrophils 80(H) 36 - 66 % [facility] Band Neutrophils 3 0 - 8 % CAN [facility] Lymphocytes 11(L) 19 - 40 % [facility] Monocytes 4 4 - 12 % [facility] Eosinophils 2 0 - 3 % [facility] WBC Estimate High [facility] Platelet Estimate Normal [facility] RBC Morphology Abnormal CANCE R SERVICES MANAGER [facility] Anisocytosis 1+ [facility] Blood 06/14/2025 9:38 AM TACTICAL AIR CONTROL PARTY MANAGER Narrative [facility] - 06/14/2025 2:36 PM TACTICAL AIR CONTR[employer] PARTY MANAGER Release to patient->Immediate us Reymundo Arnold DO HEMATOLOGY ORDERABLES Final Re sult [facility] [place] [address], * (ABNORMAL) CARCINOEMBRYONIC ANTIGEN (CEA) (06/14/2025 9:38 AM TACTICAL AIR CONTR[employer] PARTY MANAGER) Only the most recent of6 resultswithin the time period is included. CEA 38.7(H) 0.0 - 5.0 ng/mL [facility] Comment: Sofi Paramagnetic Particle Chemiluminescent Immunoassay Method Blood 06/14/2025 9:38 AM TACTICAL AIR CONTROL PARTY MANAGER Narrative [facility] - 06/14/2025 2:30 PM TACTICAL AIR CONTR[employer] PARTY MANAGER Release to patient->Immediate us Reymundo Arnold DO CHEMISTRY ORDERABLES Final Res ult Performing Organization Address City/[facility]/ZIP Co de Phone Number [facility] [place] [address] [place] [address], [place] [phone] * (ABNORMAL) CANCER ANTIGEN (CA) 15-3 (06/14/2025 9:38 AM TACTICAL AIR CONTR[employer] PARTY MANAGER) Only the most recent of6 resultswithin the time period is included. CA15-3 214.8(H) 0.0 - 31.3 U/mL [facility] Comment: Sofi Paramagnetic Particle Chemiluminescent Immunoassay Method Blood 06/14/2025 9:38 AM TACTICAL AIR CONTROL PARTY MANAGER Narrative [facility] - 06/14/2025 2:30 PM TACTICAL AIR CONTROL PARTY MANAGER Release to patient->Immediate us Reymundo Arnold DO CHEMISTRY ORDERABLES Final Res ult Performing Organization Address [facility] Co de Phone Number [facility] [place] [address] [place] [address], [place] [phone] * (ABNORMAL) URINALYSIS WITH MICROSCOPIC [place] (05/31/2025 10:13 AM TACTICAL AIR CONTROL PARTY MANAGER) Urine Color Yellow Straw-Yel low [facility] Urine Clarity Turbid(A) Clear [facility] Urine Glucose NEG NEG mg/dL [facility] Urine Bilirubin NEG NEG mg/dL [facility] ER SERVICES [facility]NA[facility] Urine Ketones NEG NEG mg/dL [facility] SERVICES MANA[facility] Urine Specific [place] 1.030(H) 1.015 - 1.020 [facility] SERVICES MANA[facility] Urine Blood 3+(A) NEG mg/L CAN[facility]ER C ENTER SPECIALISTS [facility] Urine pH 6.0 5.0 - 8.0 [pH] [facility] SERVICES MANA[facility] Urine Protein 3+(A) NEG mg/dL [facility] SERVICES MANAGER [facility] Urine Urobilinogen 0.2 0.2 - 1.0 mg/dL CANCER SERVICES MANAGER OF [facility] Urine Nitrite NEG NEG CANCER SERVICES MANAGER [facility] Urine Leukocytes 3+(A) NEG CAN CER SERVICES MANAGER [facility] Urine Epithelial Cells None None,Rare ,Few /LPF CANCER SERVICES MANAGER OF [facility] Urine Mucus None None /LPF CANCER C ENTER SPECIALISTS OF [facility] Urine Cast None None /LPF CANCER CE NTER SPECIALISTS OF [facility] Urine Bacteria Many(A) None /HPF CANCE R SERVICES MANAGER [facility] Urine Crystal None None /LPF [facility]ER SERVICES MANAGER [facility] Urine White Blood Cells Innum(A) 0 - 4 /HPF [facility]ER SERVICES MANAGER [facility] Urine Red Blood Cells 11-25(A) 0 - 2 /HPF [facility] SERVICES MANAGER [facility] 05/31/2025 10:1 3 AM TACTICAL AIR CONTROL PARTY MANAGER Narrative [facility] SERVICES MANAGER [facility] - 05/31/2025 10:44 AM TACTICAL AIR CONTROL PARTY MANAGER Release to patient->Immediate Reymundo Arnold DO LAB SEND OUTS Final Result CANCER SERVICES MANAGER [facility] [place] [address], * (ABNORMAL) CULTURE, URINE (05/31/2025 10:13 AM TACTICAL AIR CONTROL PARTY MANAGER) URINE CULTURE, ROUTINE FINAL REPORT(A) CANCER SERVICES MANAGER [facility] RESULT 1 CITROBACTER KOSERI(A) CANCER SERVICES MANAGER [facility] Comment: SOME ENTEROBACTERALES MAY DEVELOP RESISTANCE DURING THERAPY WITH THIRD-GENERATION CEPHALOSPORINS. THIS RESISTANCE IS MOST COMMONLY SEEN WITH CITROBACTER FREUNDII COMPLEX, ENTEROBACTER CLOACAE COMPLEX, AND KLEBSIELLA AEROGENES. ISOLATES THAT INITIALLY TEST SUSCEPTIBLE MAY BECOME RESISTANT WITHIN A FEW DAYS AFTER INITIATION OF THERAPY. TESTING SUBSEQUENT ISOLATES MAY BE WARRANTED IF CLINICALLY INDICATED. (CLSI [id number]) GREATER THAN 100,000 COLONY FORMING UNITS PER ML ANTIMICROBIAL SUSCEPTIBILITY COMMENT CANCER SERVICES MANAGER [facility] Comment: S = SUSCEPTIBLE; I = INTERMEDIATE; [...] S TRIMETHOPRIM/SULFA R 05/31/2025 10:1 3 AM TACTICAL AIR CONTROL PARTY MANAGER [facility] 06/04/2025 3:09 PM TACTICAL AIR CONTROL PARTY MANAGER TESTING PERFORMED AT: [] [facility], [address] [place] [address], [id number], PHONE: [phone], CONSTRUCTION SCHEDULER: COURTNEY GLEASON, PHD Reymundo Arnold DO MICROBIOLOGY - GENERAL ORDERAB LES Final Result Performing Organization Address [facility] Co de Phone Number [facility] [place] [address], * (ABNORMAL) MAGNESIUM (MG) (05/31/2025 9:28 AM TACTICAL AIR CONTROL PARTY MANAGER) Only the most recent of6 resultswithin the time period is included. Magnesium 1.8(L) 1.9 - 2.7 mg/dL [facility] Blood 05/31/2025 9:28 AM TACTICAL AIR CONTROL PARTY MANAGER [facility] - 05/31/2025 10:22 AM TACTICAL AIR CONTROL PARTY MANAGER Release to patient->Immediate Caroline Avila DIESEL ENGINEER, CARDIOPULMONARY TECHNICIAN AND EEG TECH CHEMISTRY ORDERAB LES Final Result Performing Organization Address City/[facility] Co de Phone Number [facility] Cancer Care [address] [address], * (ABNORMAL) LACTATE DEHYDROGENASE (LD) (05/31/2025 9:28 AM TACTICAL AIR CONTROL PARTY MANAGER) Only the most recent of5 resultswithin the time period is included. LDH 120(L) 140 - 271 U/L [facility] Blood 05/31/2025 9:28 AM TACTICAL AIR CONTROL PARTY MANAGER Narrative CANCER SERVICES MANAGER OF [facility] - 05/31/2025 10:22 AM TACTICAL AIR CONTROL PARTY MANAGER Release to patient->Immediate us Caroline Avila APRN, DELIO CHEMISTRY ORDERAB LES Final Result CANCER SERVICES MANAGER [facility] [place] [address], * [facility] XF (05/10/2025 9:55 AM CDT) Reason for Study To identify mutations relevant to patient's cancer. 05/18/2025 7:08 PM TACTICAL AIR CONTROL PARTY MANAGER [facility] Genetic Diseases Assessed Cancer 05/18/2025 7:08 PM TACTICAL AIR CONTROL PARTY MANAGER [facility] Description of Ranges of DNA Sequences Examined 523 gene liquid biopsy 05/18/2025 7:08 PM TACTICAL AIR CONTROL PARTY MANAGER [facility] Overall Interpretation positive 05/18/2025 7:08 PM TACTICAL AIR CONTROL PARTY MANAGER [facility] Portal [email or web address] [id number] 05/18/2025 7:08 PM TACTICAL AIR CONTROL PARTY MANAGER [facility] Comment:[facility] link Low Coverage Regions CARM1, CUL4A, DNMT1, FANCC, HDAC2, KDM5D, MAPK1, MAPK3, MSH3, NFE2L2, NOTCH2, PHLPP2, PIK3R2, PMS1, PTPRT, RAD51C, RHOA, RXRA, SDHAF2, TERT, TGFBR1, TOP1, TP63, ZNRF3 05/18/2025 7:08 PM TACTICAL AIR CONTROL PARTY MANAGER [facility] Trial Count 1 05/18/2025 7:08 PM TACTICAL AIR CONTROL PARTY MANAGER [facility] Trial 1: Matched criteria Clinical Trial NCT ID: [id number] Clinical Trial Title: A Hfrkc-Fl-Dhld n, Phase 1 Study Evaluating Oral TACC3 PPI Inhibitor, AO-252, in Advanced Solid Tumors 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 05/18/2025 7:08 PM TACTICAL AIR CONTROL PARTY MANAGER [facility] Blood Sub-Q Port Venou s Access Device (Medi-Port, Implanted Port) / Unknown 05/10/2025 9:55 AM CDT 05/10/2025 9:55 AM CDT Narrative This result has genomic variants that were not included in this document. us Reymundo Arnold DO MOLECULAR/GENOMIC ORDERABLES F inal Result [facility] [address] [facility], [address] [place] [address], * CT CHEST ABDOMEN AND PELVIS W [...] techniques. FINDINGS: Chest: Cardiovascular: Left chest wall Zjcdty-J-Jaay. Normal heart size. No significant pericardial effusion. [...] techniques. FINDINGS: Chest: Cardiovascular: Left chest wall Awcfhg-X-Nbfg. Normal heart size. Nosignificant pericardial effusion. Evaluation [...] MD Date of Signature: 04/30/2025 09:31:26 Earlene Perez APRN, DELIO IMG CT ORDERABLES F inal Result from Last 3 Months Insurance MEDICARE C AETNA Care Teams Sales Hunter Relationship Specialty Start Date End Date Provider, None [place] PCP - General 12/13/20 Martin Mann MD [address] [facility] [address] [place] [address] 1st Reconciliation Specialist Obstetrics & Gynecology 03/23/19 Reymundo Arnold DO [address] [place] [phone] Consulting Physician Oncology 09/26/20 Gregor Canela MD [address] [place] [address] Gastroenterology 11/14/21 Lizbeth Andres MD [address] [place] [address] General Surgery 11/14/21
--- OUTSIDE RECORDS SUMMARY | 2025-07-01 02:09 | XMS_ITS ---
Author Organization [facility] Address [address] [place] [address] Care Team Providers Care Meter Tester Primary Name Role Phone Macho Moody MD Primary Care Provider [phone] Yashira Desai NP Unavailable [phone] Active Problems Problem Noted Date Diagnosed Date [...]
--- OUTSIDE RECORDS SUMMARY | 2025-07-01 02:09 | XMS_ITS | Encounter Summary ---
Author Organization [facility] Address [address] [place] [address] Phone Care Team Providers Care Aircraft Design Engineer Name Role Phone Martin Mann MD Unavailable Reymundo Arnold DO Unavailable [phone] Provider, None Primary Care Provider UnavailGregor Gonzáles MD Unavailable [phone] Lizbeth Andres MD Unavailable [phone] Reason for Visit * Reason Comments Medication Refill Encounter Details Date Type Department Care Team (Late st Contact Info) Description 11/15/2023 Refill [facility] [place] [address] [place] [address] eRymundo Arnold, DO [address] [place] [address] Medication Refill Social History Tobacco [...] st Contact Info) Description 07/05/2025 9:15 AM FISH CHECKER Clinical Support [facility] [address] [phone] 07/05/2025 9:30 AM FISH CHECKER Office Visit [facility] [address] [phone] Reymundo Arnold DO [address] [place] [address] documented as of this encounter Visit Diagnoses Diagnosis Malignant neoplasm of overlapping sites of right breast in female, estrogen receptor positive documented in this encounter Additional Health Concerns Assessment Noted Time PHQ-9 Depression Total Score: 0 03/28/20 21 10:03 AM CDT documented as of this encounter Care Teams Aircraft Design Engineer Relationship Specialty Start Date End Date Provider, None [place] PCP - General 12/13/20 Martin Mann MD [address] [facility] [address] [place] [address] 1st Conveyor Feeder Obstetrics & Gynecology 03/23/19 Reymundo Arnold DO [address] [place] [phone] Consulting Physician Oncology 09/26/20 Gregor Canela MD [address] [address] Gastroenterology 11/14/21 Lizbeth Andres MD [address] [place] [address] General Surgery 11/14/21 documented as of this encounter
--- OUTSIDE RECORDS SUMMARY | 2025-07-01 02:09 | XMS_ITS | Encounter Summary ---
Author Organization [facility] Address [address] [place] [place] [address] Phone Care Team Providers Care Strategic Procurement Manager Name Role Phone Martin Mann MD Unavailable Reymundo Arnold DO Unavailable [phone] Provider, None Primary Care Provider UnavailGregor Gonzáles MD Unavailable [phone] Lizbeth Andres MD Unavailable [phone] Encounter Details Date Type Department Care Team (Late st Contact Info) Description 01/02/2021 Telephone [facility] [place] [address] [place] [address] Reymundo Arnold, DO [address] [place] [address] Social History Tobacco Use Types [...] 9:49 AM CDT Spoke with Bonnie at [facility] and she mentioned that for Ms. Francisco that you spoke with Dr. Carvalho about holding off on this patient's biopsy for at least 3 to 6 months. I just wanted to confirm this before we close out her referral. Please advise. Bonnie-[facility] ext [phone] documented in this encounter Plan of Treatment Upcoming Encounters Date Type Department Care Team (Late st Contact Info) Description 07/05/2025 9:15 AM DRAG DOWN Clinical Support [facility] [address] [phone] 07/05/2025 9:30 AM DRAG DOWN Office Visit [facility] [address] [phone] Reymundo Arnold DO [address] [place] [phone] documented as of this encounter Visit Diagnoses Not on filedocumented in this encounter Additional Health Concerns Assessment Noted Time PHQ-9 Depression Total Score: 0 12/21/19 21 11:29 AM CDT documented as of this encounter Care Teams Strategic Procurement Manager Relationship Specialty Start Date End Date Provider, None [place] PCP - General 12/13/20 Martin Mann MD 10[address] [facility] [address] [place] [address] 1st Air Box Tester Obstetrics & Gynecology 03/23/19 Reyumndo Arnold DO [address] [place] [phone] Consulting Physician Oncology 09/26/20 Gregor Canela MD [address] [address] Gastroenterology 11/14/21 Lizbeth Andres MD [address] [place] [address] General Surgery 11/14/21 documented as of this encounter
--- OUTSIDE RECORDS SUMMARY | 2025-07-01 02:09 | XMS_ITS ---
Author Organization [facility] Address [address] [facility] [address] [place] [address] Phone Care Team Providers Care Oracle Ebs Developer Name Role Phone Martin Mann MD Unavailable Reymundo Arnold DO Unavailable [phone] Provider, None Primary Care Provider UnavailGregor Gonzáles MD Unavailable [phone] Lizbeth Andres MD Unavailable [phone] Active Problems Problem Noted Date Diagnosed Date [...] scheduled. Plan Clean Up Sarah Rao APRN, SOFTWARE TEST ENGINEER 1 of 1 cycle started CCSCI: Support Injectafer 5 08/18/2024 No medications scheduled. Plan Clean Up Sarah Rao APRN, SOFTWARE TEST ENGINEER Treatment not started SUPPORT - HYDRATION WITHOUT [...] DO Treatment not started CARBOPLATIN/TA XOL - [facility] 9 10/17/2021 CARBOplatin (PARAPLATIN) chemo infusion (by AUC)PACLitaxel (TAXOL) chemo infusion Plan Clean Up Clayton, Reymundo D, DO 6 of 6 cycles started ORAL CHEMO TREATMENT Plan Name Start Date Discontinue Date Treatment Medications Discontinue Reason Plan Provider Cycles BREAST - ORAL CAPECITABINE - [facility] 4 05/25/2024 capecitabine (XELODA) Plan Clean Up Clayton, Reymundo D, DO Treatment not started BREAST - PALBOCICLIB (IBRANCE) - [facility] 2 01/29/2023 palbociclib (IBRANCE) Plan Clean Up Clayton, Reymundo D, DO 0 (1 of 7 cycles) started Lifetime Dose Tracking * Chemical Lifetime Dose Automatic Entry Manual Entr y Carboplatin 1,777.645 mg/m2 (2,9 84.125 mg) 1,777.645 mg/m2 (2,984.125 mg) 0 mg/m2 (0 mg)
--- OUTSIDE RECORDS SUMMARY | 2025-07-01 02:09 | XMS_ITS | Clinical Summary ---
Author Organization [facility] Address [address] [place] [address] Care Team Providers Care Director Geothermal Operations Name Role Phone Macho Moody MD Primary Care Provider [phone] Yashira Desai NP Unavailable [phone] Allergies Active Allergy Reactions Criticality Noted [...] 0.6 oz pur e alcohol) a week [facility] Utilities Answer Date Recorded In the past 12 months has e [employer], [employer], oil, or water [employer] threatened to shut off services in your [...] any time in the past 12 m [facility], were you homeless or living in a longterm (including now)? No 04/30/2024 Comments No Sex [...] and discharge planning Lifestyle No Nikos Plaza, junior network engineer Procedure Name Priority Date/Time Associated Diagnosis Comments COLONOSCOPY Routine 09/27/2021 10:41 AM CDT from Last 3 Months or Most Recently Relevant to Health Maintenance Insurance AETNA [facility] Advance Directives * Full Code (Latest Code Status on File) Date Activated Date Inactivated Comments 04/30/2024 5:37 PM 05/02/2024 4:42 PM Care Teams Director Geothermal Operations Relationship Specialty Start Date End Date Macho Moody MD [address] [address] PCP - General FAMILY PRACTICE 09/06/21 Yashira Desai NP [address] [place] [address] Nurse Practitioner Nurse Practitioner Family 05/01/23
--- OUTSIDE RECORDS SUMMARY | 2025-07-01 02:09 | XMS_ITS ---
Author Organization [facility] Address [address] [facility] [address] Care Team Providers Care Developmental Electronics Assembler Name Role Phone Macho Moody MD Primary [...]
--- OUTSIDE RECORDS SUMMARY | 2025-07-01 02:09 | XMS_ITS | Clinical Summary ---
Author Organization [facility] Address [address] [place] [address] Phone Care Team Providers Care Route Delivery Clerk Name Role Phone Macho Moody MD Primary Care Prov ider Martin Spicer DO Unavailable [phone] Allergies Active Allergy Reactions Criticality Noted Date [...] 2010:Stage IIIB(cT4a, cN3a, cM0, G2, ER: Positive, DE: Positive, HER2: Negative) - Signed by Martin [...] on file Legal Sex Female 1:56 PM PRINCIPAL BIOINFORMATICS SPECIALIST Gender Identity Female 01/10/2018 11:47 AM CDT [...] Plan of Treatment Not on file Insurance [facility] HMO Care Teams Route Delivery Clerk Relationship Specialty Start Date End Date Macho Moody MD PCP - General Family Medicine 01/10/18 Martin Spicer DO [address] [place] [address] Medical Oncologist/Board Of Education Secretary Hematology and Oncology 07/30/18
--- OUTSIDE RECORDS SUMMARY | 2025-07-01 02:09 | XMS_ITS | Encounter Summary ---
Author Organization [facility] Address [address] [place] [address] Phone Care Team Providers Care Process Trainer Name Role Phone Martin Mann MD Unavailable Reymundo Arnold DO Unavailable [phone] Provider, None Primary Care Provider UnavailGregor Gonzáles MD Unavailable [phone] Lizbeth Andres MD Unavailable [phone] Reason for Visit * Reason Comments Medication Refill Encounter Details Date Type Department Care Team (Late st Contact Info) Description 09/12/2022 Refill [facility] [place] [address] [place] [address] Reymundo Arnold, DO [address] [place] [address] Medication Refill Social History Tobacco [...] Coronavirus/COVID-19? No / Unsure 09/07/2022 10:38 AM PATIENT SAFETY TECH documented as of this encounter Miscellaneous Notes * Telephone Encounter - Blue Stewart RN - 09/12/2022 12:16 PM CST Refill request from pharmacy. Refill if appropriate. ENT SAFETY TECH documented in this encounter Plan of Treatment Upcoming Encounters Date Type Department Care Team (Late st Contact Info) Description 07/05/2025 9:15 AM PATIENT SAFETY TECH Clinical Support [facility] [address] [phone] 07/05/2025 9:30 AM PATIENT SAFETY TECH Office Visit [facility] [address] [phone] Reymundo Arnold DO [address] [place] [phone] documented as of this encounter Visit Diagnoses Diagnosis Malignant neoplasm of overlapping sites of breast in female, estrogen receptor positive, unspecified laterality documented in this encounter Additional Health Concerns Assessment Noted Time PHQ-9 Depression Total Score: 0 03/28/20 10:03 AM CDT documented as of this encounter Care Teams Process Trainer Relationship Specialty Start Date End Date Provider, None [place] PCP - General 12/13/20 [place] [address] [place] [address] 1st Airfreight Operations Agent Obstetrics & Gynecology 03/23/19 Reymundo Arnold DO [address] [place] [phone] Consulting Physician Oncology 09/26/20 Gregor Canela MD [address] [address] Gastroenterology 11/14/21 Lizbeth Andres MD [address] [place] [address] General Surgery 11/14/21 documented as of this encounter
--- OUTSIDE RECORDS SUMMARY | 2025-07-01 02:09 | XMS_ITS | Encounter Summary ---
Author Organization [facility] Address [address] [place] [address] Care Team Providers Care Demo Coordinator Name Role Phone Macho Moody MD Primary Care Provider [phone] Yashira Desai GROUP DYNAMICS INSTRUCTOR Unavailable [phone] Encounter Details Date Type Department Care Team (Late st Contact Info) Description 12/10/2023 Therapy Plan [facility] [address] [facility] [place] [address] Reymundo Arnold, DO [address] [phone] Social History Tobacco Use Types Packs/Day Years [...] HHS/HCC) documented in this encounter Care Teams Demo Coordinator Relationship Specialty Start Date End Date Macho Moody MD [address] [address] PCP - General FAMILY PRACTICE 09/06/21 Yashira Desai NP [address] [place] [address] Nurse Practitioner Nurse Practitioner Family 05/01/23 documented as of this encounter
--- OUTSIDE RECORDS SUMMARY | 2025-07-01 02:09 | XMS_ITS | Encounter Summary ---
Author Organization [facility] Address [address] [place] [address] Care Team Providers Care Bunch Maker Hand Name Role Phone Macho Moody MD Primary Care Provider + Encounter Details Date Type Department Care Team (Late st Contact Info) Description 04/10/2019 Lab Requisition [facility] Pathology Lab [address] [place] [address] Pop Bauer MD [address] [place], [place] [id number] Social History Tobacco Use Types Packs/Day Years [...] 1:10 PM CDT) Client Specimen ID # [id number] 04/16/2019 11:07 AM CDT [facility] Number of Blocks Received 0 04/16/2019 11:07 AM CDT [facility] Number of Slides 1 04/16/2019 11:07 AM CDT [facility] Number of Control Slides 1 04/16/2019 11:07 AM CDT [facility] Pathology/Cytolo gy SPECIMEN FROM UTERINE CERVIX OBTAINED BY HYSTERECTOMY / Unknown 04/10/2019 1:10 PM CDT 04/10/2019 3:34 PM CDT Pop Bauer MD LAB - PATHOLOGY/CYTOLOGY ORDER VIC Final Result [facility] [address] [place] [address], [facility] [phone] documented in this encounter Visit Diagnoses Not on filedocumented in this encounter Care Teams Bunch Maker Hand Relationship Specialty Start Date End Date Macho Moody MD [address] [address] PCP - General 02/13/19 documented as of this encounter
--- NOTE | 2025-07-01 06:55 | WPDHPUPDATE1 ---
History and Physical Update Update Date/Time: 07/01/25 06:55 History and Physical has been reviewed, including an updated exam of the patient. There are NO changes in the patient's condition. Risks, benefits, and alternatives have been discussed and questions answered. Patient agrees to proceed with procedure.
[2025-07-01] MEDS: LACTATED RINGERS 1,000 ML 30 ML IV CONT (07:42)
--- NOTE | 2025-07-01 07:45 | SUR.PREOP ---
Dr. Colmenares made aware of positive UA and pending UC. No new orders.
--- NOTE | 2025-07-01 07:48 | WPDANESEPPF ---
Anes - Initial Pre Proc Eval Procedure: Operation Date: 07/01/25 08:30 Proposed Procedures p Cystoscopy with Bilateral Stent Exchange - Sandor Colmenares MD Date/Time: 07/01/25 07:48 Surgeon: Sandor Colmenares MD Pre Op Diagnosis: Hydronephrosis, Chr Cystitis Patient Data Age: 65 Gender: F Height: 1.52 m Weight: 58.6 kg Last Vital Signs Temp 36.8 C 07/01/25 07:37 Pulse 99 07/01/25 07:37 Resp 18 07/01/25 07:37 BP 113/72 07/01/25 07:37 Pulse Ox 99 07/01/25 07:37 O2 Del Method Room Air 07/01/25 07:37 Allergies Allergy/AdvReac Type Severity Reaction Status Date / Time Sulfa (Sulfonamide Allergy Unknown Redness of Verified 07/01/25 07:34 Antibiotics) Skin morphine AdvReac Mild Nausea and Verified 07/01/25 07:34 Vomiting Home Medications ?Medication ?Instructions ?Recorded ?Confirmed ?Type calcium carb-ergocalciferol (vit 1 tablet PO DAILY 02/06/23 07/01/25 History D2) 600 mg calcium-200 unit tablet acetaminophen 325 mg tablet 650 mg PO Q4H PRN Pain (Scale 04/03/23 06/24/25 History (Tylenol) Score 1-3) magnesium oxide 400 mg (241.3 mg 400 mg PO HS 07/29/24 07/01/25 History magnesium) tablet cephalexin 250 mg capsule 250 mg PO DAILY #30 caps 12/24/24 07/01/25 Rx cranberry 500 mg capsule 500 mg PO HS 06/24/25 07/01/25 History Patient hx anesthesia problems: none Family hx anesthesia problems: none Results Review: All pre-operative results and documents have been reviewed as part of the pre-operative evaluation. [facility] Past Medical History Medical History PONV (postoperative nausea and vomiting) DVT (deep venous thrombosis) Metastasis from breast cancer Surgical History Surgical History History of cholecystectomy History of mastectomy History of hysterectomy Family History Family History Mother Family history of diabetes mellitus in first degree relative Social History Social History Smoking status: Never smoker Second hand tobacco smoke exposure: No Alcohol intake: current Drinks per week: 1 Alcohol use details: SMALL AMOUNT ON WEEKENDS ONLY Substance use: never Substance use type: marijuana Other substance usage details: CBD gummies during chemo, not very often Lack of Transportation: No Lack of Food: Never True Current Housing: I Have Housing Concerned About Future Housing: No Difficulty Paying Gas/Electric Bills: No Difficulty Paying for Meds: No Currently Unemployed: No Education: Master's Degree or Higher Difficulty w/ Childcare or Family Care: No Living arrangements: with family Additional living arrangements comments: [facility]USB Spiritual care concerns: No Anes - Eval Final PreProcedure Day of Procedure 07/01/25 07:48 Patient weight: normal Heart: regular rate and rhythm Lungs: clear to auscultation Airway: Mallampati scale class III Neurological: alert and oriented Last oral intake: >/= 8 hours ASA classification: III Emergent: no Anesthetic plan: proceed Anesthesia type and monitoring: general LMA and standard monitoring Results Review: All pre-operative results and documents have been reviewed as part of the pre-operative evaluation. Informed Consent: The patient's anesthetic plan and its attendant risks and benefits were discussed with the patient/family/POA. Questions were solicited and answers provided to the satisfaction of the patient/family/POA.
[2025-07-01] MEDS: SCOPOLAMINE 1 MG PATCH 1 PATCH TRANSDERM (08:03)
[2025-07-01] MEDS: ceFAZolin 2 GM in SODIUM CHLORIDE 0.9% IV 50 ML 100 ML IVPB (08:17)
[2025-07-01] MEDS: LIDOCAINE 2% GEL UROJET 10 ML PKG MUCOUS MEM (08:31)
--- NOTE | 2025-07-01 08:59 | P.OP_ITS ---
Procedure Note - Detailed Date of Procedure 07/01/25 Pre-op Diagnosis Hydronephrosis, Chr Cystitis Post-op Diagnosis Same Procedure Performed Cystoscopy, bilateral retrograde pyelography, bilateral ureteral stent exchange Surgeon Sandor Colmenares MD Anesthesia General Description of Procedure Patient is brought to the operative suite where she is prepped and draped in routine sterile fashion in dorsal lithotomy position.? 2% xylocaine jelly was introduced intraurethrally and systemic sedation is administered per the anesthesia department.? Cystoscopy was undertaken with a 21 F rigid cystoscope.? Bladder mucosa is normal.? There was no intravesical foreign body and no signs of residual or recurrent neoplasm.? The ureteral orifices appeared to be in a normal position today.? The stents showed signs of slight encrustation after having been replaced a bit over 5 months ago.? The stents were exchanged over 0.035 in [place], replacing with 6 F variable length stent.? I did perform bilateral retrograde pyelography with a [place] catheter to ensure appropriate positioning of the stents. Patient tolerated the procedure well.? I will plan to change the stents again in 6 months
[2025-07-01] MEDS: fentaNYL CITRATE INJ (*CRX) 100 MCG/2 ML VIAL 25 MCG IV PUSH (09:10)
[2025-07-01] MEDS: ACETAMINOPHEN 325 MG TABLET 650 MG PO (10:05)
--- NOTE | 2025-07-01 10:35 | SUR.PHASEII ---
Dr. Colmenares notified of patient's elevated heart rate along with temporal temperature of 100.4. PO tylenol administered at 1005. Dr. Colmenares stated to continue to monitor patient.
--- NOTE | 2025-07-01 11:41 | SUR.PHASEII ---
Okay to discharge patient per Dr. Colmenares order.
== END 2025-07-01 11:50 | disposition home or self-care (01) ==
PROVIDERS: PCP Family Medicine Adolescent Medicine; Visit Provider Urology
PROC: (CPT 52352; principal; 2025-07-01 08:30)
DX: Z46.6 Encounter for fitting and adjustment of urinary device (principal); N13.30 Unspecified hydronephrosis; N30.20 Other chronic cystitis without hematuria
CPT/HCPCS: 52332; 74420; J0690; A9270; C1769; C2617; J1100; J2405; J2704; J3010; J7120